=== PATIENT | female | born 1980 | race Caucasian/White ===

== ENCOUNTER 2016-09-13 08:26 | Emergency (ER) | payer BC ==
[2016-09-13] MEDS ORDERED: Metoclopramide IV* 5 MG/ML 2 ML VIAL IV ONE (09:07)
[2016-09-13] MEDS ORDERED: HYDROmorphone INJ* 1 MG/ML CARPUJECT SYRINGE IV ONE (09:07)
[2016-09-13] MEDS ORDERED: NS 0.9% 1000 ML* 2,000 ML IV ONE (09:07)
[2016-09-13] MEDS ORDERED: diPHENhydraMINE IV* 50 MG/ML 1 ml VIAL (BENADRYL) IV ONE (09:10)
--- NOTE | 2016-09-13 09:28 | RAD ---
HISTORY: Chest pain, pneumonia, CHF COMPARISONS: April 16, 2015 VIEWS:1: Single frontal portable view of the chest at 9:10 AM FINDINGS: LINES AND TUBES: None. CARDIOMEDIASTINAL SILHOUETTE: The cardiomediastinal silhouette is normal for portable technique. A prosthetic heart valve is noted. PLEURA: The costophrenic angles are sharp. No pleural abnormalities are noted. LUNG PARENCHYMA: The lungs are clear. ABDOMEN: The upper abdomen is clear. There is no subphrenic gas. BONES AND SOFT TISSUES: The patient is status post median sternotomy. IMPRESSION: NO ACTIVE CARDIOPULMONARY DISEASE.
--- NOTE | 2016-09-13 09:54 | RAD ---
INDICATION: Headache on Coumadin. COMPARISON: Comparison is made with a prior CT of the brain from December 31, 2015. TECHNIQUE: Contiguous axial sections of the brain were obtained from the skull base to the vertex without contrast. FINDINGS: The ventricles, cisterns and sulci are within normal limits. No significant focal abnormality or mass effect is seen. There is no evidence for hemorrhage. No significant focal osseous abnormality is seen. The visualized portion of the paranasal sinuses and mastoid air cells appear clear. IMPRESSION: NO EVIDENCE FOR ACUTE INTRACRANIAL ABNORMALITY.
[2016-09-13 09:59] LABS: Urine Bilirubin Negative (Negative); Urine Glucose Negative (Negative); Urine Nitrite Negative (Negative)
[2016-09-13 11:59] LABS: Hematocrit 41 % (35-47); Hemoglobin 13.2 g/dl (12.0-16.0); Mean Corpuscular HGB Conc 33 g/dl (31-36); Mean Corpuscular Hemoglobin 28 pg (27-31); Mean Corpuscular Volume 85 fL (80-97); Mean Platelet Volume 8 um3 (7.4-10.4); Red Blood Count 4.76 10^6/ul (4.0-5.4); Red Cell Distribution Width 14 % (10.5-15); White Blood Count 7.3 10^3/ul (3.5-10.8)
[2016-09-13 12:25] LABS: BUN/Creatinine Ratio 13.6 (8-20); Calcium 9.2 mg/dL (8.6-10.3); EGFR African American 130.3 (>60); EGFR Non-African American 101.3 (>60); Globulin 2.7 g/dL (2-4); Potassium 3.7 mmol/L (3.5-5.0); Total Bilirubin 0.4 mg/dL (0.2-1.0); Total Protein 6.7 g/dL (6.4-8.9)
[2016-09-13 12:59] VITALS: BP 149/77
--- NOTE | 2016-09-13 16:20 | ED ---
[place] Brown Adam, scribed for Marcel Calix MD on 09/13/16 at 1007 . Neurological HPI - HPI Summary HPI Summary: Pt is a 36 year old female with a Hx of migraines presenting with a worsening MCKEON over the past 3 days. She states that it started out mild 3 days ago but by 11:00 yesterday it was a full migraine. She has taken Imitrex (pill) x3 but the MCKEON is still there. She went to work today but felt "very out of it" and could barely stand. Her typical migraine is on the left side and always feels like "something is crawling around in there". This time is characteristic of her typical migraine on the left side but there is also numbness and tingling going down the left side of her body to her legs, which is new. She states that she began feeling CP at 06:30 this morning and soon afterwards developed numbness and tingling in her left arm which has since spread throughout the left side of her body. Pt also c/o SOB, palpitations, stiff neck, and intermittent black spots in her vision. She vomited 2 days ago. She had cold sweats last night. She states that she has also been having some left flank pain. She denies fever and chills. Pt has an artificial mechanical valve and is on Warfarin (INR was 2.3 this week). She stopped metoprolol about 1 month ago. Occasional EtOH use. FMHx of migraines. - History of Current Complaint Chief Complaint: EDHeadache Stated Complaint: CHEST PAIN Time Seen by Provider: 09/13/16 09:38 Hx Obtained From: Patient Hx Last Menstrual Period: December 2015 endometrial ablation Onset/Duration: Gradual Onset, Started days ago, Still Present, Worse Since - Yesterday Onset Severity: Mild Current Severity: Moderate Headache Location: Diffuse (Left) Pain Intensity: 6 Pain Scale Used: 0-10 Numeric Character: Typical Migraine, Other: - "Feels like something is crawling around in there" Aggravating: Position Change/Supine to Erect Alleviating: Nothing Associated Signs and Symptoms: Positive: Headache, Numbness, Nausea/Vomiting, Diaphoresis, Neck Pain/Stiffness, Chest Pain, Shortness of Breath - Additional Pertinent History Primary Care Physician: SANJIV - Allergy/Home Medications Allergies/Adverse Reactions: Allergies Allergy/AdvReac Type Severity Reaction Status Date / Time Bee Venom Allergy Severe Anaphylatic Verified 05/16/16 07:34 Shock Home Medications: Home Medications Cholecalciferol TAB* [Vitamin D TAB*] 2 tab PO DAILY 09/13/16 [History Confirmed 09/13/16] Famotidine TAB* [Pepcid 20 MG TAB*] 20 mg PO BID 09/13/16 [History Confirmed ] Warfarin TAB(*) [Coumadin TAB(*)] 7.5 - 10 mg PO QPM 09/13/16 [History Confirmed 09/13/16] PMH/Surg Hx/FS Hx/Imm Hx Endocrine/Hematology History: Reports: Hx Anemia - TAKES IRON Denies: Hx Diabetes, Hx Thyroid Disease Cardiovascular History: Reports: Hx Congenital Heart Disease, Hx Hypertension, Hx Valvular Heart Disease Denies: Hx Pacemaker/ICD Respiratory History: Reports: Hx Asthma - exercise induced when younger Denies: Hx Chronic Obstructive Pulmonary Disease (COPD), Hx Sleep Apnea GI History: Denies: Hx Gastroesophageal Reflux Disease, Hx Jaundice, Hx Ulcer History: Reports: Other Problems/Disorders Denies: Hx Renal Disease Musculoskeletal History: Reports: Hx Tendonitis - LEFT SHOULDER Sensory History: Reports: Hx Contacts or Glasses - GLASSES Denies: Hx Hearing Aid Opthamlomology History: Reports: Hx Contacts or Glasses - GLASSES Neurological History: Denies: Hx Headaches, Hx Migraine, Hx Nerve Disease, Hx Seizures Psychiatric History: Denies: Hx Anxiety, Hx Depression, Hx Panic Disorder - Surgical History Surgery Procedure, Year, and Place: t&a. 2002, 2007. tubal ligation , LAPROSCOPY 2004. Endometrial ablation 2016. 05/29/16 Mechanical heart valve replacement Hx Anesthesia Reactions: No Infectious Disease History: No Infectious Disease History: Denies: Hx Hepatitis, Hx Human Immunodeficiency Virus (HIV), Traveled Outside the [place] in Last 30 Days - Family History Known Family History: Positive: Hypertension, Other - Migraines Family History: FHx of cholecystitis - Social History Occupation: Employed Full-time Lives: Alone Alcohol Use: Occasionally Alcohol Amount: SPECIAL OCCASIONS ONLY Hx Substance Use: No Substance Use Type: Reports: None Substance Use Comment - Amount & Last Used: occasional/last used few months ago Hx Tobacco Use: Yes Smoking Status (MU): Former Smoker Review of Systems Positive: Skin Diaphoresis. Negative: Fever, Chills Positive: Other - Black spot in vision Positive: Palpitations, Chest Pain Positive: Shortness Of Breath Positive: Vomiting Positive: Other - Stiff neck Positive: Headache, Numbness All Other Systems Reviewed And Are Negative: Yes Physical Exam - Summary Physical Exam Summary: The patient is obese in no acute distress and in no acute pain. The skin is warm and dry and skin color reflects adequate perfusion. HEENT: The head is normocephalic and atraumatic. The pupils are equal and reactive. No photophobia. The conjunctivae are clear and without drainage. Nares are patent and without drainage. Mouth reveals dry oral mucosa. The external ears are intact. The ear canals are patent and without drainage. The tympanic membranes are intact. No tenderness to percussion of sinuses. No TMJ or temporal artery tenderness. Neck is supple with full range of motion and non-tender. There are no carotid bruits. There is no neck vein distension. No nuchal rigidity. Respiratory: Lungs are clear to auscultation and breath sounds are symmetrical and equal. Cardiovascular: Heart is regular rate and rhythm. There is no murmur or rub auscultated. There is no peripheral edema and pulses are symmetrical and equal. Abdomen: The abdomen is obese, soft, and nontender. Musculoskeletal: Reproducible chest wall tenderness. There is no back pain noted. Extremities are non-tender with full range of motion. There is good capillary refill. There is no peripheral edema or calf tenderness elicited. Scars healed well. Neurological: Patient is alert and oriented to person, place and time. The patient has symmetrical motor strength in all four extremities. Cranial nerves are grossly intact. Deep tendon reflexes are symmetrical and equal in all four extremities. Psychiatric: The patient has an appropriate affect and does not exhibit any anxiety or depression. Triage Information Reviewed: Yes Vital Signs On Initial Exam: Initial Vitals Temp Pulse Resp BP Pulse Ox 98.4 F 79 18 151/98 100 09/13/16 09:08 09/13/16 09:08 09/13/16 09:08 09/13/16 09:08 09/13/16 09:08 Vital Signs Reviewed: Yes - [place] Coma Scale Coma Scale Total: 15 Diagnostics - Vital Signs Vital Signs Temp Pulse Resp BP Pulse Ox 09/13/16 09:08 98.4 F 79 18 151/98 100 - Laboratory Lab Results: Lab Results 09/13/16 Range/Units 09:30 Urine Color Yellow Urine Appearance Clear Urine pH 8.0 (5-9) Ur Specific [place] 1.010 (1.010-1.030) Urine Protein Negative (Negative) Urine Ketones Trace H (Negative) Urine Blood Negative (Negative) Urine Nitrate Negative (Negative) Urine Bilirubin Negative (Negative) Urine Urobilinogen Negative (Negative) Ur Leukocyte Esterase Negative (Negative) Urine Glucose Negative (Negative) Result Diagrams: 09/13/16 11:35 09/13/16 11:35 Lab Statement: Any lab studies that have been ordered have been reviewed, and results considered in the medical decision making process. - Radiology CXR Radiology Interpretation Completed By: Radiologist - IMPRESSION: NO ACTIVE CARDIOPULMONARY DISEASE. - CT BRAIN CT Interpretation Completed By: Radiologist - IMPRESSION: NO EVIDENCE FOR ACUTE INTRACRANIAL ABNORMALITY. - EKG 08:57 Cardiac Rate: NL - 59 BPM EKG Rhythm: Sinus Rhythm - Normal EKG Interpretation: Normal axis Course/Dx - Differential Dx Differential Diagnoses Neuro: Positive: Coronary Artery Disease, Metabolic Abnormality, Other - intracerebral bleed, migraine headache, pneumonia, anxiety , anticoagulation therapy - Diagnoses Provider Diagnoses: Migraine, Chest pain Discharge - Discharge Plan Condition: Stable Disposition: HOME Prescriptions: HYDROmorphone TAB* [Dilaudid TAB*] 2 mg PO Q6H PRN #20 tab MDD 4 PRN Reason: pain Patient Education Materials: Migraine Headache (ED), Chest Pain (ED) Forms: *Work Release Referrals: Servando Rios DO [Doctor of Osteopathy] - Allyn Faulkner MD [Medical Doctor] - Additional Instructions: Follow up with Dr. Rios and Dr. Faulkner (cardiology) The documentation as recorded by the [place] villarreal Adam accurately reflects the service I personally performed and the decisions made by , Marcel Calix MD.
== END 2016-09-13 12:58 | disposition home or self-care (01) ==
LOC: ED 08:26
DX: G43.909 Migraine, unspecified, not intractable, without status migrainosus (principal); R07.9 Chest pain, unspecified
CPT/HCPCS: 36415; 70450; 71010; 80053; 81003; 83605; 83880; 84484; 85025; 85610; 85730; 93005; 96374; 96375; 99283; J1170; J1200; J2765

== ENCOUNTER 2017-01-23 04:06 | Emergency (ER) | payer BC ==
[2017-01-23] MEDS ORDERED: NS 0.9% 1000 ML* 1,000 ML IV ONE ×2 (04:40→08:21)
[2017-01-23] MEDS ORDERED: Morphine INJ* 2 MG/ML 1 ML SYRINGE IV ONE (04:40)
[2017-01-23] MEDS ORDERED: Ondansetron INJ* 2 MG/ML VIAL IV ONE (04:40)
[2017-01-23 05:16] LABS: Hematocrit 39 % (35-47); Hemoglobin 13.1 g/dl (12.0-16.0); Mean Corpuscular HGB Conc 33 g/dl (31-36); Mean Corpuscular Hemoglobin 29 pg (27-31); Mean Corpuscular Volume 86 fL (80-97); Mean Platelet Volume 9 um3 (7.4-10.4); Red Blood Count 4.56 10^6/ul (4.0-5.4); Red Cell Distribution Width 14 % (10.5-15); White Blood Count 8.8 10^3/ul (3.5-10.8)
[2017-01-23 05:26] LABS: ALT 12 U/L (7-52); AST 18 U/L (13-39); Albumin 4.4 g/dL (3.2-5.2); Alkaline Phosphatase 55 U/L (34-104); Anion Gap 4 mmol/L (2-11); BUN/Creatinine Ratio 17.7 (8-20); Blood Urea Nitrogen 14 mg/dL (6-24); CO2 Carbon Dioxide 26 mmol/L (22-32); Calcium 9.2 mg/dL (8.6-10.3); Chloride 106 mmol/L (101-111); EGFR African American 105.9 (>60); EGFR Non-African American 82.3 (>60); Globulin 2.7 g/dL (2-4); Glucose 92 mg/dL (70-100); Lipase 22 U/L (11.0-82.0); Potassium 3.8 mmol/L (3.5-5.0); Sodium 136 mmol/L (133-145); Total Protein 7.1 g/dL (6.4-8.9)
--- NOTE | 2017-01-23 06:00 | ED ---
Niki Brown Rebecca, scribed for Vamshi Tompkins MD on 01/23/17 at 0420 . Abdominal Pain/Female - HPI Summary HPI Summary: Pt is a 36 y/o F who presents to ED c/o abd pain. Pain began gradually at 1600 yesterday and has been constant since onset. Pain is in the RUQ and RLQ currently, though it began in the R vaginal region. Pain is characterized as pressure and is currently severe, ranked 10/10. Sx aggravated and alleviated by nothing. Additionally c/o N/V. Pt takes Warfarin s/p mechanical heart valve placement to treat aortic valve stenosis with a heart murmur 1.5 years ago. - History of Current Complaint Chief Complaint: EDAbdPain Stated Complaint: RIGHT FLANK PAIN Hx Obtained From: Patient Hx Last Menstrual Period: December 2015 endometrial ablation Onset/Duration: Gradual Onset, Still Present Timing: Constant Severity Currently: Severe Pain Intensity: 10 Pain Scale Used: 0-10 Numeric Location: Discrete At: RUQ, Discrete At: RLQ Radiates: No Character: Other: - Pressure Aggravating Factor(s): Nothing Alleviating Factor(s): Nothing Associated Signs and Symptoms: Positive: Nausea, Vomiting Allergies/Adverse Reactions: Allergies Allergy/AdvReac Type Severity Reaction Status Date / Time Bee Venom Allergy Severe Rash Verified 01/23/17 06:29 Home Medications: Home Medications HYDROmorphone TAB* [Dilaudid TAB*] 2 mg PO Q6H PRN MDD 4 01/23/17 [History Confirmed 01/23/17] Levothyroxine TAB* [Synthroid TAB*] 50 mcg PO DAILY 01/23/17 [History Confirmed 01/23/17] PMH/Surg Hx/FS Hx/Imm Hx Endocrine/Hematology History: Reports: Hx Anemia - TAKES IRON Denies: Hx Diabetes, Hx Thyroid Disease Cardiovascular History: Reports: Hx Congenital Heart Disease, Hx Hypertension, Hx Valvular Heart Disease Denies: Hx Pacemaker/ICD Respiratory History: Reports: Hx Asthma - exercise induced when younger Denies: Hx Chronic Obstructive Pulmonary Disease (COPD), Hx Sleep Apnea GI History: Denies: Hx Gastroesophageal Reflux Disease, Hx Jaundice, Hx Ulcer History: Reports: Other Problems/Disorders Denies: Hx Renal Disease Musculoskeletal History: Reports: Hx Tendonitis - LEFT SHOULDER Sensory History: Reports: Hx Contacts or Glasses - GLASSES Denies: Hx Hearing Aid Opthamlomology History: Reports: Hx Contacts or Glasses - GLASSES Neurological History: Denies: Hx Headaches, Hx Migraine, Hx Nerve Disease, Hx Seizures Psychiatric History: Denies: Hx Anxiety, Hx Depression, Hx Panic Disorder - Surgical History Surgery Procedure, Year, and Place: t&a. 2002, 2007. tubal ligation , LAPROSCOPY 2004. Endometrial ablation 2016. 05/29/16 Mechanical heart valve replacement Hx Anesthesia Reactions: No Infectious Disease History: Denies: Hx Hepatitis, Hx Human Immunodeficiency Virus (HIV), Traveled Outside the [place] in Last 30 Days - Family History Known Family History: Positive: Hypertension, Other - Migraines Family History: FHx of cholecystitis - Social History Alcohol Use: Occasionally Alcohol Amount: SPECIAL OCCASIONS ONLY Hx Substance Use: No Substance Use Type: Reports: None Substance Use Comment - Amount & Last Used: occasional/last used few months ago Hx Tobacco Use: Yes Smoking Status (MU): Former Smoker Review of Systems Negative: Fever Positive: Abdominal Pain - RLQ and RUQ, Vomiting, Nausea All Other Systems Reviewed And Are Negative: Yes Physical Exam Triage Information Reviewed: Yes Vital Signs On Initial Exam: Initial Vitals Temp Pulse Resp BP Pulse Ox 97.2 F 90 18 140/94 99 01/23/17 04:11 01/23/17 04:11 01/23/17 04:11 01/23/17 04:11 01/23/17 04:11 Vital Signs Reviewed: Yes Appearance: Positive: Well-Appearing, Pain Distress - mild discomfort Skin: Positive: Warm Head/Face: Positive: Normal Head/Face Inspection Eyes: Positive: [place] ENT: Positive: Hearing grossly normal Neck: Positive: Supple Respiratory/Lung Sounds: Positive: Breath Sounds Present Cardiovascular: Positive: RRR Abdomen Description: Positive: Soft, Other: - mild mid rt abd tenderness. Negative: Guarding Bowel Sounds: Positive: Present Musculoskeletal: Positive: Strength/ROM Intact Neurological: Positive: Alert, Oriented to Person Place, Time, Normal Gait Psychiatric: Positive: Affect/Mood Appropriate Diagnostics - Vital Signs Vital Signs Temp Pulse Resp BP Pulse Ox 01/23/17 04:11 97.2 F 90 18 140/94 99 - Laboratory Lab Results: Lab Results 01/23/17 01/23/17 01/23/17 Range/Units 04:26 04:26 04:26 WBC 8.8 (3.5-10.8) 10^3/ul RBC 4.56 (4.0-5.4) 10^6/ul Hgb 13.1 (12.0-16.0) g/dl Hct 39 (35-47) % MCV 86 (80-97) fL MCH 29 (27-31) pg MCHC 33 (31-36) g/dl RDW 14 (10.5-15) % Plt Count 283 (150-450) 10^3/ul MPV 9 (7.4-10.4) um3 Neut % (Auto) 53.8 (38-83) % Lymph % (Auto) 35.8 (25-47) % Thayer % (Auto) 7.8 (1-9) % Eos % (Auto) 2.3 (0-6) % Baso % (Auto) 0.3 (0-2) % Absolute Neuts (auto) 4.7 (1.5-7.7) 10^3/ul Absolute Lymphs (auto) 3.2 (1.0-4.8) 10^3/ul Absolute Monos (auto) 0.7 (0-0.8) 10^3/ul Absolute Eos (auto) 0.2 (0-0.6) 10^3/ul Absolute Basos (auto) 0 (0-0.2) 10^3/ul Absolute Nucleated RBC 0.01 10^3/ul Nucleated RBC % 0.1 INR (Anticoag Therapy) 3.46 H (0.89-1.11) Sodium 136 (133-145) mmol/L Potassium 3.8 (3.5-5.0) mmol/L Chloride 106 (101-111) mmol/L Carbon Dioxide 26 (22-32) mmol/L Anion Gap 4 (2-11) mmol/L BUN 14 (6-24) mg/dL Creatinine 0.79 (0.51-0.95) mg/dL Est GFR ( Amer) 105.9 (>60) Est GFR (Non-Af Amer) 82.3 (>60) BUN/Creatinine Ratio 17.7 (8-20) Glucose 92 (70-100) mg/dL Lactic Acid (0.5-2.0) mmol/L Calcium 9.2 (8.6-10.3) mg/dL Magnesium 2.0 (1.9-2.7) mg/dL Total Bilirubin 0.40 (0.2-1.0) mg/dL AST 18 (13-39) U/L ALT 12 (7-52) U/L Alkaline Phosphatase 55 (34-104) U/L C-Reactive Protein Pending Total Protein 7.1 (6.4-8.9) g/dL Albumin 4.4 (3.2-5.2) g/dL Globulin 2.7 (2-4) g/dL Albumin/Globulin Ratio 1.6 (1-3) Lipase 22 (11.0-82.0) U/L Beta HCG, Quant < 0.60 mIU/mL 01/23/17 Range/Units 04:26 WBC (3.5-10.8) 10^3/ul RBC (4.0-5.4) 10^6/ul Hgb (12.0-16.0) g/dl Hct (35-47) % MCV (80-97) fL MCH (27-31) pg MCHC (31-36) g/dl RDW (10.5-15) % Plt Count (150-450) 10^3/ul MPV (7.4-10.4) um3 Neut % (Auto) (38-83) % Lymph % (Auto) (25-47) % [place] % (Auto) (1-9) % Eos % (Auto) (0-6) % Baso % (Auto) (0-2) % Absolute Neuts (auto) (1.5-7.7) 10^3/ul Absolute Lymphs (auto) (1.0-4.8) 10^3/ul Absolute Monos (auto) (0-0.8) 10^3/ul Absolute Eos (auto) (0-0.6) 10^3/ul Absolute Basos (auto) (0-0.2) 10^3/ul Absolute Nucleated RBC 10^3/ul Nucleated RBC % INR (Anticoag Therapy) (0.89-1.11) Sodium (133-145) mmol/L Potassium (3.5-5.0) mmol/L Chloride (101-111) mmol/L Carbon Dioxide (22-32) mmol/L Anion Gap (2-11) mmol/L BUN (6-24) mg/dL Creatinine (0.51-0.95) mg/dL Est GFR ( Amer) (>60) Est GFR (Non-Af Amer) (>60) BUN/Creatinine Ratio (8-20) Glucose (70-100) mg/dL Lactic Acid 0.4 L (0.5-2.0) mmol/L Calcium (8.6-10.3) mg/dL Magnesium (1.9-2.7) mg/dL Total Bilirubin (0.2-1.0) mg/dL AST (13-39) U/L ALT (7-52) U/L Alkaline Phosphatase (34-104) U/L C-Reactive Protein Total Protein (6.4-8.9) g/dL Albumin (3.2-5.2) g/dL Globulin (2-4) g/dL Albumin/Globulin Ratio (1-3) Lipase (11.0-82.0) U/L Beta HCG, Quant mIU/mL Result Diagrams: 01/23/17 04:26 01/23/17 04:26 Lab Statement: Any lab studies that have been ordered have been reviewed, and results considered in the medical decision making process. Re-Evaluation - Re-Evaluation First Eval Re-Evaluation Time: 08:11 Comment: Reviewed labs and imaging results with pt. Second Eval Re-Evaluation Time: 10:22 Comment: Reviewed new imaging results. Third Eval Re-Evaluation Time: 14:04 Comment: Discussed plan with pt. Abdominal Pain Fem Course/Dx - Course Course Of Treatment: Pt is a 36 y/o F who presents to ED c/o gradual onset, severe RUQ and RLQ pain characterized as pressure since 1600 yesterday. Sx aggravated and alleviated by nothing. Additionally c/o N/V. Pt takes Warfarin s/ p mechanical heart valve placement to treat aortic valve stenosis with a heart murmur 1.5 years ago. Pt will be signed out to Dr. Neil, pending dispo, awaiting CT Abd/Pel. - Diagnoses Provider Diagnoses: Abdominal pain, Pelvic pain Discharge - Discharge Plan Condition: Improved Disposition: HOME Discharge Disposition Comment: Pt will be signed out, pending dispo, awaiting CT Abd/Pel results Prescriptions: oxyCODONE/Acetamin 5/325 MG* [Percocet 5/325 TAB*] 1 tab PO Q4H PRN #20 tab MDD 6 PRN Reason: Pain Patient Education Materials: Pelvic Pain in Women (ED), Abdominal Pain (ED) Referrals: [facility] [Provider Group] Sharath Landaverde MD [Medical Doctor] - Sumi Yan MD [Primary Care Provider] - Additional Instructions: FOLLOW UP WITH YOUR PRIMARY CARE DOCTOR AND OBGYN, DR LANDAVERDE. RETURN TO THE EMERGENCY DEPARTMENT FOR ANY WORSENING OF YOUR CONDITION; PAIN, FEVER, YOU FEEL ILL, YOU FEEL LIKE PASSING OUT OR QUESTIONS OR CONCERNS. The documentation as recorded by the Niki villarreal Rebecca accurately reflects the service I personally performed and the decisions made by me, Vamshi Tompkins MD.
[2017-01-23 06:15] LABS: Urine Bacteria 1+ (Absent); Urine Bilirubin Negative (Negative); Urine Glucose Negative (Negative); Urine Nitrite Negative (Negative)
[2017-01-23] MEDS ORDERED: Iohexol 300* (CONTRAST) 10 ML SDV IV ONE (06:31)
[2017-01-23 07:03] LABS: C Reactive Protein 8.08 mg/L (< 5.00)
--- NOTE | 2017-01-23 07:46 | RAD ---
INDICATION: Right lower quadrant pain. Fever. COMPARISON: None TECHNIQUE: Axial source images were obtained from the hemidiaphragms to the symphysis pubis following administration of oral and intravenous contrast. 100 mL Omnipaque 300 was utilized. Coronal and sagittal reconstructed images were acquired. Lung bases: The lung bases are clear. Liver: The liver is normal in size. There are no masses. There is no ductal dilatation. Gallbladder: There are no calcified gallstones. There is no evidence of wall thickening or pericholecystic fluid. Spleen: The spleen is normal in size. There are no masses. There are small splenules Pancreas: There is no focal pancreatic mass or ductal dilatation. Adrenal glands: There is no evidence of adrenal mass. Kidneys: The kidneys are normal in size and position. There are prompt nephrograms and there is prompt excretion bilaterally. There are no renal parenchymal masses. There is no evidence of nephrolithiasis. Adenopathy: There is no evidence of adenopathy by size criteria. Fluid collections: There are no free or localized fluid collections. Vessels:There are no significant atherosclerotic changes involving the aorta. There is no focal aneurysm. The iliac vessels are normal in caliber. The IVC appears normal. GI tract: There are no acute CT bowel findings. There is no obstruction. The stomach and small bowel appear normal. The lower GI tract is normal. The cecum, ileocecal valve, and terminal ileum appear normal. The appendix is visualized and appear normal. Pelvic organs: The uterus and left adnexa appear normal. There is a mass in the right adnexa measuring 4.7 x 4.1 cm which is likely the right ovary perhaps with some associated complex and/or hemorrhagic cyst. Suggest follow-up pelvic sonography. Bladder: There are no bladder masses. Abdominal and pelvic soft tissues: The extraperitoneal abdominal and pelvic soft tissues appear normal.. Osseous structures: There are no acute osseous findings. Other: None IMPRESSION: SUSPECT COMPLEX/HEMORRHAGIC RIGHT OVARIAN CYST. THIS SHOULD BE FURTHER CHARACTERIZED WITH ULTRASONOGRAPHY . NO OTHER MASS OR INFLAMMATORY CHANGE. NORMAL APPENDIX.
[2017-01-23] MEDS ORDERED: Morphine INJ* 4 MG/ML 1 ML SYRINGE IV ONE (08:22)
--- NOTE | 2017-01-23 09:58 | RAD ---
INDICATION: Pain and swelling left leg. COMPARISON: None TECHNIQUE: Duplex interrogation of the Lowerextremity was performed. FINDINGS: Deep veins: The common femoral, great saphenous, profunda femoris, proximal, mid, and distal deep femoral, popliteal, posterior tibial, and peroneal veins are patent. There is normal compressibility, augmentation, and phasic flow. Superficial veins: There are no findings of superficial thrombophlebitis. Popliteal fossa:There is no evidence of a popliteal cyst. Soft tissues:There are no soft tissue abnormalities. IMPRESSION: Normal examination. No evidence of deep venous thrombosis
--- NOTE | 2017-01-23 10:14 | RAD ---
INDICATION: Further characterization of a right adnexal structure seen on same-day CT. COMPARISON: CT abdomen pelvis dated January 23, 2017. Most recent pelvic ultrasound is dated August 17, 2010. TECHNIQUE: Real-time transabdominal and transvaginal ultrasound examination of the female pelvis including grayscale and Doppler color flow imaging. FINDINGS: Uterus: The uterus is normal in size and echogenicity measuring 7.2 x 3.7 x 4.8 cm. The endometrial stripe measures approximately 7 mm in thickness. The endometrial stripe is irregular consistent with the patient's history of endometrial ablation. Again noted are minimally prominent left para uterine veins measuring up to 4 mm in diameter that are not pathologically dilated according to size criteria. Ovaries: The right and left ovary measure 5.7 x 3.4 x 4.8 cm and 2.8 x 1.6 x 2.4 cm, respectively. Normal arterial and venous waveforms are identified. Within the right ovary there is an echogenic and mostly avascular structure measuring approximately 2.6 x 3.2 cm that appears to be separate from the remaining ovarian parenchyma. Scattered follicles are noted. There is no free fluid in the cul-de-sac. IMPRESSION: 1. Avascular an echogenic structure within the right ovary measuring up to 3.2 cm could be consistent with hemorrhagic involution of a follicle or endometrioma. If clinically warranted follow-up ultrasound can be acquired in 6 weeks to determine resolution. 2. Additional chronic findings described in the body the report similar to the August 17, 2010 ultrasound.
[2017-01-23] MEDS ORDERED: HYDROmorphone* 1 MG/ML 1 ML SYR IV ONE (11:21)
[2017-01-23] MEDS ORDERED: NS 0.9% 1000 ML* 1,000 ML IV SCH (11:30)
--- NOTE | 2017-01-23 14:13 | ED ---
Solo Brown Salem, scribed for Román Neil MD on 01/23/17 at 0813 . Progress - Progress Note Progress Note: Pt was signed out from Dr. Tompkins. 36 y/o F presents with right-sided abd pain since 1600 yesterday and reports N/ V. - Results/Orders Results/Orders: CT abd/pelvis: IMPRESSION: SUSPECT COMPLEX/HEMORRHAGIC RIGHT OVARIAN CYST. THIS SHOULD BE FURTHER CHARACTERIZED WITH ULTRASONOGRAPHY . NO OTHER MASS OR INFLAMMATORY CHANGE. NORMAL APPENDIX. Transvaginal US: IMPRESSION: 1. Avascular an echogenic structure within the right ovary measuring up to 3.2 cm could be consistent with hemorrhagic involution of a follicle or endometrioma. If clinically warranted follow-up ultrasound can be acquired in 6 weeks to determine resolution. 2. Additional chronic findings described in the body the report similar to the August 17, 2010 ultrasound. Venous Doppler Study: IMPRESSION: Normal examination. No evidence of deep venous thrombosis Re-Evaluation - Re-Evaluation First Eval Re-Evaluation Time: 08:11 Comment: Reviewed labs and imaging results with pt. Second Eval Re-Evaluation Time: 10:22 Comment: Reviewed new imaging results. Third Eval Re-Evaluation Time: 14:04 Comment: Discussed plan with pt. Course/Dx - Course Course Of Treatment: NO CRITICAL CARE TIME. DISCUSSED THE RESULTS WITH PATIENT AND [facility]ALEIGH ALEJO. PATIENT STILL HAS PAIN IN THE ED. DISCUSSED ADMISSION WITH PATIENT. SHE PREFERS TO GO HOME AND F/U OUT PATIENT. DISCHARGE HOME STABLE. - Diagnoses Provider Diagnoses: Abdominal pain, Pelvic pain - Provider Notifications Discussed Care Of Patient With: Sharath Landaverde Time Discussed With Above Provider: 12:22 - Discussed case. Instructed by Provider To: Other - Dr. Landaverde doesn't think there is an immediate pathology to admit for, but happy to follow up with pt as an out-pt. Discharge - Discharge Plan Condition: Stable Disposition: HOME Prescriptions: oxyCODONE/Acetamin 5/325 MG* [Percocet 5/325 TAB*] 1 tab PO Q4H PRN #20 tab MDD 6 PRN Reason: Pain Patient Education Materials: Abdominal Pain (ED), Pelvic Pain in Women (ED) Referrals: Sharath Landaverde MD [Medical Doctor] - Sumi Yan MD [Primary Care Provider] - [facility] [Provider Group] Additional Instructions: FOLLOW UP WITH YOUR PRIMARY CARE DOCTOR AND OBGYN, DR LANDAVERDE. RETURN TO THE EMERGENCY DEPARTMENT FOR ANY WORSENING OF YOUR CONDITION; PAIN, FEVER, YOU FEEL ILL, YOU FEEL LIKE PASSING OUT OR QUESTIONS OR CONCERNS. The documentation as recorded by the Solo villarreal Salem accurately reflects the service I personally performed and the decisions made by me, Román Neil MD.
[2017-01-23 14:27] VITALS: BP 144/69
== END 2017-01-23 14:28 | disposition home or self-care (01) ==
LOC: ED 04:06
DX: R10.9 Unspecified abdominal pain (principal); R10.2 Pelvic and perineal pain; R11.2 Nausea with vomiting, unspecified; Z87.891 Personal history of nicotine dependence
CPT/HCPCS: 36415; 74177; 76830; 80053; 81003; 81015; 83605; 83690; 83735; 84702; 85025; 85610; 86140; 87086; 99283; J1170; J2270; J2405; Q9967

== ENCOUNTER 2017-03-07 15:27 | Observation (INO) | payer BC ==
[2017-03-07] MEDS ORDERED: Ondansetron INJ* 2 MG/ML VIAL IV ONE ×2 (15:35→18:53)
[2017-03-07] MEDS ORDERED: Morphine INJ* 4 MG/ML 1 ML SYRINGE IV ONE (15:35)
[2017-03-07] MEDS ORDERED: HYDROmorphone* 2 MG/ML 1 ML SYR IV SLOW PU ONE ×2 (15:44→16:30)
[2017-03-07 16:09] LABS: Hematocrit 43 % (35-47); Hemoglobin 14.1 g/dl (12.0-16.0); Mean Corpuscular HGB Conc 33 g/dl (31-36); Mean Corpuscular Hemoglobin 29 pg (27-31); Mean Corpuscular Volume 86 fL (80-97); Mean Platelet Volume 9 um3 (7.4-10.4); Red Blood Count 4.97 10^6/ul (4.0-5.4); Red Cell Distribution Width 13 % (10.5-15); White Blood Count 13.1 10^3/ul (3.5-10.8)
[2017-03-07 16:35] LABS: ALT 11 U/L (7-52); AST 16 U/L (13-39); Albumin 4.5 g/dL (3.2-5.2); Alkaline Phosphatase 55 U/L (34-104); Anion Gap 7 mmol/L (2-11); BUN/Creatinine Ratio 20.9 (8-20); Blood Urea Nitrogen 14 mg/dL (6-24); CO2 Carbon Dioxide 22 mmol/L (22-32); Chloride 106 mmol/L (101-111); EGFR African American 128.1 (>60); EGFR Non-African American 99.6 (>60); Glucose 99 mg/dL (70-100); Potassium 3.8 mmol/L (3.5-5.0); Sodium 135 mmol/L (133-145)
[2017-03-07] MEDS ORDERED: Iohexol 300* (CONTRAST) 10 ML SDV IV ONE (17:15)
[2017-03-07 17:40] LABS: Calcium 9.4 mg/dL (8.6-10.3); Total Protein 7.5 g/dL (6.4-8.9)
[2017-03-07] MEDS ORDERED: Ketorolac INJ* 30 MG/ML 1 ML VIAL IV PUSH ONE (18:53)
--- NOTE | 2017-03-07 19:18 | RAD ---
CLINICAL HISTORY: Peritoneal signs with history of right ovarian cyst. COMPARISON: Most recent comparison CT examination is dated January 23, 2017. Most recent pelvic ultrasound is dated January 23, 2017 as well. TECHNIQUE: Contrast enhanced CT examination of the abdomen and pelvis from the lung bases through the initial tuberosities. The patient received 100 mL Omnipaque 300 intravenously prior to imaging.The patient received oral contrast as well prior to imaging. FINDINGS: VISUALIZED LUNG BASES: The visualized lung bases are grossly clear. There is no pleural effusion. ABDOMEN AND PELVIS: There is a small amount of perihepatic and perisplenic fluid. More inferiorly there is trace ascites in the abdomen with a moderate ascites collection in the pelvis. The liver, spleen, pancreas and adrenal glands are grossly normal in appearance. The gallbladder is normal. The kidneys are normal in appearance without focal mass, calcification or signs of hydronephrosis. The small and large bowel are not distended. The patient's normal appendix is identified in the right lower quadrant with gas in the lumen (image 45 of 118). There is no gross retroperitoneal or mesenteric lymphadenopathy. There is a moderate amount of fluid in the pelvis with a Hounsfield unit greater than that of simple fluid ascites. There is evidence of venous reflux at the mildly enlarged left ovarian vein which measures up to 9 mm in greatest axial dimension. This contrast is seen refluxing into mildly dilated left periuterine veins contiguous with the area of fluid collection. On the previous CT examination there was a 4.1 x 4.7 cm soft tissue density structure that is not well-visualized today. There is a more well-circumscribed fluid density structure measuring 2.3 cm in the right hemipelvis. The abdominal aorta and iliac arteries are normal in course and diameter. Degenerative changes include multilevel loss of intervertebral disc height involving the lower thoracic and lumbar spine.There are no sinister bone lesions. IMPRESSION: Acute findings include moderate pelvic ascites with trace ascites in the abdomen and surrounding the liver and spleen. In the pelvis the Hounsfield unit density of this ascites is greater than that of simple fluid. There is evidence of venous reflux of the left ovarian vein communicating with mild to moderately dilated periuterine veins. Relative to the CT examination acquired January 23, 2017 the 4.7 cm soft tissue density structure seen before is not well seen today. Potentially this constellation of findings could be due to rupture of a hemorrhagic cyst which would account for the density attenuation of the fluid. Potentially there is leakage of contrast from the periuterine varicose veins and refluxing left ovarian vein which may be causing the otherwise simple ascites to be hyperdense. I favor rupture of a hemorrhagic cyst and the identification of the appearance of pelvic congestion syndrome is a secondary incidental finding. As discussed with Dr. Moreno, pelvic ultrasound may help elucidate these findings.
--- NOTE | 2017-03-07 20:37 | RAD ---
INDICATION: Abdominal pain. COMPARISON: Same day CT examination that shows hyperattenuating ascites in the pelvis. Most recent comparison pelvic ultrasound dated January 23, 2017. TECHNIQUE: Real-time transabdominal only ultrasound examination of the female pelvis including grayscale and Doppler color flow imaging. FINDINGS: Uterus: The uterus is normal in size and echogenicity measuring 9.9 x 4.3 x 4.1 cm. The endometrial stripe is smooth and uniform measuring 7 mm in thickness. Corresponding to the prior CT examination there is minimally echogenic free pelvic fluid. Ovaries: The right and left ovary measure 5.8 x 4.3 x 4.8 cm and 6.5 x 5.0 x 5.4 cm, respectively. Within the right ovary there is an anechoic and avascular structure measuring 4 x 3.2 x 3.5 cm which would be most consistent with a follicle in a woman of this age. The large echogenic mass at the right ovary measuring up to 4.2 cm in greatest dimension is not seen on this ultrasound exam. Normal arterial and venous waveforms are identified at the right ovary. Limited vascular flow is recorded at the left ovary. IMPRESSION: 1. Corresponding to findings on the same day CT examination, there is a moderate amount of slightly echogenic fluid in the pelvic peritoneum. 2. The 4.2 cm echogenic mass seen within the right ovary on the previous ultrasound is not seen on this ultrasound. Potentially the patient's findings are a consequence of rupture of a hemorrhagic cyst or a ruptured endometrioma which would account for the hyperdense fluid measured on the same day CT examination. 3. Attenuated vascular flow is recorded at the mildly enlarged left ovary. Potentially this could be due to ovarian torsion or simply be a consequence of limited vascular evaluation in a transabdominal only pelvic ultrasound. Findings were discussed over the telephone with Dr. Tompkins at 2033 hours on March 07, 2017.
[2017-03-07] MEDS ORDERED: Sodium Citrate/Citric Acid* 15 ML UDC ONE (22:59)
[2017-03-07] MEDS ORDERED: Dexamethasone IV* 4 MG/ML 1 ML (4 MG) ONE (22:59)
[2017-03-07] MEDS ORDERED: Bupivacaine 0.25% SDV* 30 ML ONE (23:13)
[2017-03-07] MEDS ORDERED: Lidocaine 2% PF * 5 ML VIAL ONE (23:32)
[2017-03-07] MEDS ORDERED: Propofol* 10 MG/ML 20 ML BTL IV PUSH ONE (23:32)
[2017-03-07] MEDS ORDERED: Succinylcholine* 20 MG/ML 10 ML VIAL ONE (23:32)
[2017-03-07] MEDS ORDERED: fentaNYL* 50 MCG/ML 5 ML VIAL (250 MCG VIAL) ONE (23:33)
[2017-03-07] MEDS ORDERED: Cisatracurium* 2 MG/ML MDV 5 ML ONE ×2 (23:56→23:57)
[2017-03-08] MEDS ORDERED: KETAMINE HCL* 50 MG/ML 10 ML VIAL ONE
[2017-03-08] MEDS ORDERED: Ondansetron INJ* 2 MG/ML VIAL ONE (00:26)
[2017-03-08] MEDS ORDERED: fentaNYL* 50 MCG/ML 2 ML VIAL (100 MCG VIAL) ONE (00:37)
[2017-03-08] MEDS ORDERED: Neostigmine Methylsulfate* 2 MG/2 ML SYRINGE ONE (01:01)
[2017-03-08] MEDS ORDERED: Glycopyrrolate IV* 0.2 MG/ML 1 ML VIAL ONE ×2 (01:01→01:07)
[2017-03-08] MEDS ORDERED: oxyCODONE/Acetamin 5/325 MG* TAB PO PRN ×2 (01:32→01:33)
[2017-03-08] MEDS ORDERED: Ondansetron INJ* 2 MG/ML VIAL IV PRN (01:33)
[2017-03-08 08:21] VITALS: BP 110/52
--- NOTE | 2017-03-08 15:57 | DS ---
DISCHARGE SUMMARY: DATE OF ADMISSION/OPERATION: 03/08/17 DATE OF DISCHARGE: 03/08/17 SURGEON: Jluis Dobbs MD HOSPITAL COURSE: This patient was a 36-year-old 3, para 2, who presented to the emergency department the day before surgery with complaint of about 3 days of worsening pain. The pain was fairly acute initially and then seemed to plateau, but then earlier today, was persistently getting worse again. The pain was throughout her entire abdomen, especially in the lower pelvis and by the end, she was unable to walk or move. Of note, the patient had a laparoscopic right salpingo- oophorectomy scheduled for next week for persistent right-sided pains and right ovarian cyst. In the emergency department, the patient was stable, but appeared extremely uncomfortable. Pain was not well managed with IV pain medications. Ultrasound was significant for a right ovarian cyst about 4 cm in size and a moderate amount of pelvic and abdominal fluid consistent with likely blood. Attenuated blood flow in the left ovary was considered to likely be related to poor abdominal ultrasound quality. Considering the findings, the patient was extensively counseled and consented for an operative laparoscopy with right salpingo-oophorectomy and likely evacuation of hemoperitoneum. Intraoperative findings were significant for a fairly large amount of blood inside the pelvis, at least 500 cc. This also extended up to the mid abdomen and liver. All visible blood was irrigated and removed. The only source of bleeding appeared to be the right ovarian cyst that had ruptured and now had no active bleeding. The patient had an aortic valve replacement, so she has been on anticoagulation. She likely had so much bleeding because of the anticoagulation. The right ovary and fallopian tube were removed as planned. On the morning of surgery, the patient was already feeling much better. She was ambulating, tolerating a regular diet, and voiding spontaneously. She was not even needing any pain medications for her pain. She was discharged to home in good condition on postoperative day 0. DISCHARGE PHYSICAL EXAMINATION: Vital Signs: Temperature 98.6, pulse 72, respiratory rate 16, blood pressure 110/52. General: The patient in no acute distress, appears comfortable in bed. Speaking clearly and no longer in distress. Abdomen: Soft, mild tenderness to palpation primarily around the incisions. Incisions appear clean, dry, and intact with skin adhesive in place. LABORATORY DATA: Preoperative hematocrit was 43. INR was 2.19. DISCHARGE INSTRUCTIONS: The patient's postoperative instructions were provided verbally and in printed form. 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 DISCHARGE MEDICATIONS: Please see the medication reconciliation form for this. DISCHARGE DIAGNOSIS: Acute abdominal pain, right ruptured ovarian cyst and hemoperitoneum. [id number]/[facility] #: [id number] MTDD
--- NOTE | 2017-03-13 06:15 | OP ---
DATE OF OPERATION: 03/07/17 - ROOM #349 DATE OF : 80 SURGEON: Jluis Dobbs MD FORM SETTER STEEL PAN FORMS: Priyank Dobson MD ANESTHESIOLOGIST: Dr. Bledsoe. ANESTHESIA: General endotracheal. PRE-OP DIAGNOSIS: Acute abdominal pain with apparent ruptured right ovarian cyst and hemoperitoneum. POST-OP DIAGNOSIS: Acute abdominal pain with ruptured right ovarian cyst and hemoperitoneum. OPERATIVE PROCEDURE: Laparoscopic right salpingo-oophorectomy and evacuation of the peritoneum. ESTIMATED BLOOD LOSS: 500 cc. URINE OUTPUT: 100 cc. IV FLUIDS: 2400 cc lactated Ringer's. INDICATIONS: This patient is a 36-year-old 3, para 2-0-1-2 who has been seen in my office several times in the past. Most recently, the patient had complained of some persistent right lower quadrant pain and had a known approximately 4 to 4.5 cm right ovarian cyst. Due to the persistence of her right lower quadrant pain, she desired to have a right salpingo-oophorectomy performed. She was scheduled for this to be performed on 03/12/17. A few days prior to presentation in the ER today, she had called reporting an increase in the pain, which was felt to be possibly from rupture of the cyst. It improved slightly initially, but then became progressively worse again today, 03/07/17. Considering this, she went to the emergency department where CT and ultrasound were performed and notable for apparent blood within the abdomen and pelvis. The patient's pain could not be controlled with pain medications and she was extremely uncomfortable. Considering this, she desired to proceed with laparoscopic right salpingo- oophorectomy right away and we discussed evacuating the hemoperitoneum. Of note, the patient has a history significant for an aortic valve replacement so she has been on full anticoagulation on warfarin. With the upcoming surgery, the patient had discontinued her warfarin two days earlier and was now on therapeutic levels of Lovenox. Her last Lovenox was about 12 hours prior to the surgery. INR this evening was 2.1. FINDINGS: Abdomen and pelvis with moderate amount of blood at least 500 cc. Left ovary and fallopian tube appeared normal. The uterus appeared normal. Right ovary appeared to have a modest hemorrhagic cyst with only a small area that appeared to have been the rupture site. There was no active bleeding present. There were several sites of adhesions in the pelvis and some findings that were significant for possible endometriosis implants. COMPLICATIONS: None. DESCRIPTION OF PROCEDURE: The risks, benefits, and alternatives were described to the patient and informed consent was obtained. The patient was taken to the operating room with IV running where general anesthesia was induced and found to be adequate. The patient was prepped and draped in the normal sterile fashion in the high lithotomy position in [facility]. A time-out was performed. A Sorto catheter was placed. A bivalved speculum was placed in the vagina and attempt was made to place a Hulka tenaculum, but due to the patient' s prior endometrial ablation, this was not feasible. A sponge stick was then placed in the vagina to assist with manipulation of the uterus. The speculum was then removed and the patient's legs were lowered to a low lithotomy position. Gloves were changed and attention was then turned to the abdomen. 0.25% Marcaine was then injected into the patient's umbilicus. An approximately 2 cm vertical incision was then made with a scalpel. A 12-mm blunt trocar was then placed through the incision and into the peritoneal cavity without difficulty. The skin was elevated using penetrating towel clamps. The abdomen was then insufflated with carbon dioxide gas to a maximum pressure of 15 mmHg. A 5 mm laparoscope was placed into the abdomen and then there was a substantial amount of blood and blood clot visible in the abdomen and pelvis. 0.25% Marcaine was then injected into the left and right lower quadrants and 5 mm incisions were made with the scalpel. Bladeless trocars were placed into both the incisions through to the peritoneal cavity without difficulty. 5 and 10mm suction irrigators were used for a long time in order to remove as much blood and clot as possible. Some of the clot was extremely organized and dense. Once most of the visible blood had been removed, the patient was placed in the Trendelenburg position. The remainder of the pelvis was then irrigated as the bowel was swept out of the pelvis. Again, all the visible blood was removed as much as possible. The pelvis was inspected with the findings noted above. A LigaSure device was then prepared and used to clamp , coagulate and then transect the infundibulopelvic ligament on the right side. The right fallopian tube was then amputated from the cornua using the LigaSure as well. The posterior broad ligament was taken down also with the LigaSure and the uteroovarian ligament was clamped, coagulated and transected. Once the tube and ovary had been from the uterus and pelvic wall, a 12 mm Endo Catch bag was inserted into the umbilical port and the tube and ovary were placed inside of the bag. This was then brought up to the skin and after rupturing the cyst within the bag and draining it, the ovary and tube were removed through the umbilical incision in the bag. The pelvis was reinspected and additional irrigation and suctioning were performed. The area above the liver was noted to also have a modest amount of blood so this was also removed and irrigated. There did not appear to be any active bleeding present at that time. The patient was then returned to the flat position and the gas was allowed to escape. All three trocars were then removed. The fascia at the umbilical side was then grasped and reapproximated using 0 Polysorb in a [id number] stitch. The skin of all three incisions was reapproximated using 4-0 Monocryl in a subcuticular stitch and then Dermaflex skin adhesive was placed over them. The sponge stick was then removed from the vagina and the patient was returned to the supine position. The patient tolerated the procedure well. The sponge, lap, and needle counts were correct x2. [id number]/[facility] #: [id number] MTDD
== END 2017-03-08 11:35 | disposition home or self-care (01) ==
LOC: ED 15:27 → OR 22:17 → SSU 03-08 02:42
PROVIDERS: ADMIT Obstetrics & Gynecology; ATTEND Obstetrics & Gynecology
PROC: 0UT04ZZ Resection of Right Ovary, Percutaneous Endoscopic Approach (ICD-10-PCS; principal; 2017-03-08)
PROC: 0UT54ZZ Resection of Right Fallopian Tube, Percutaneous Endoscopic Approach (ICD-10-PCS; 2017-03-08)
DX: R10.9 Unspecified abdominal pain (principal); N83.201 Unspecified ovarian cyst, right side; K66.1 Hemoperitoneum; Z95.2 Presence of prosthetic heart valve; Z79.01 Long term (current) use of anticoagulants
CPT/HCPCS: 36415; 74177; 76856; 80053; 84702; 85027; 85610; 88305; 96374; 96375; 96376; 99284; A9270-GY; G0378; J0330; J1100; J1170; J1885; J2405; J2704; J3010; Q9967

== ENCOUNTER 2017-07-07 10:52 | Emergency (ER) | payer BC, OTHER ==
[2017-07-07 11:56] VITALS: BP 146/78
--- NOTE | 2017-07-07 12:46 | UC ---
Mango Brown Gabriel, scribed for Shabbir Anaya MD on 07/07/17 at 1236 . Abdominal Pain Female HPI - HPI Summary HPI Summary: This patient is a 37 year old F presenting to [facility] with a chief complaint of ABD pain since 5 days ago. The patient rates the pain 8/10 in severity and located suprapubic region. Symptoms aggravated by bending at waist. Patient reports dysuria, ABD distension, and vomiting. Pt had two recent surgeries in her abdomen and is taking Coumadin for heart issues. Her stomach keeps becoming more distended and she is concerned about abdominal bleeding. - History of Current Complaint Chief Complaint: UCAbdominalPain Stated Complaint: STOMACH PAIN Time Seen by Provider: 07/07/17 12:24 Hx Obtained From: Patient Hx Last Menstrual Period: December 2015 endometrial ablation Onset/Duration: Lasting Days - 5, Still Present Timing: Constant Severity Initially: Mild Severity Currently: Severe Pain Intensity: 8 Pain Scale Used: 0-10 Numeric Location: Suprapubic Radiates: No Aggravating Factor(s): Other: - bending at waist Associated Signs and Symptoms: Positive: Other: - dysuria, ABD distension, and vomiting Allergies/Adverse Reactions: Allergies Allergy/AdvReac Type Severity Reaction Status Date / Time Bee Venom Allergy Severe Rash Verified 07/07/17 11:57 Home Medications: Home Medications Gabapentin CAP(*) [Neurontin 100 mg CAP(*)] 100 mg PO TID PRN 07/07/17 [History Confirmed 07/07/17] PMH/Surg Hx/FS Hx/Imm Hx Previously Healthy: No Cardiovascular History: Other - aortic valve replacment Other Cardiovascular History: aortic valve replacement GI/ History: Other - PCOS Other GI/ History: ovarian cyst Neurological History: Migraine - Surgical History Surgical History: Yes Surgery Procedure, Year, and Place: t&a. 2002, 2007. tubal ligation , LAPROSCOPY 2004. Endometrial ablation 2016. 05/29/16 Mechanical heart valve replacement - Family History Known Family History: Positive: Hypertension, Other - Migraines Family History: FHx of cholecystitis - Social History Occupation: Employed Full-time Lives: With Family Alcohol Use: Rare Alcohol Amount: SPECIAL OCCASIONS ONLY Substance Use Type: None Substance Use Comment - Amount & Last Used: occasional/last used few months ago Smoking Status (MU): Former Smoker When Did the Patient Quit Smoking/Using Tobacco: 14 years ago - Immunization History Most Recent Influenza Vaccination: no Review of Systems Gastrointestinal: Abdominal Pain, Vomiting, Other - ABD distension Genitourinary: Dysuria All Other Systems Reviewed And Are Negative: Yes Physical Exam Triage Information Reviewed: Yes Appearance: Well-Appearing, No Pain Distress Vital Signs: Initial Vital Signs Temp 99.1 F 07/07/17 11:49 Pulse 73 07/07/17 11:49 Resp 18 07/07/17 11:49 BP 146/78 07/07/17 11:49 Pulse Ox 100 07/07/17 11:49 Vital Signs Reviewed: Yes Eyes: Positive: Conjunctiva Clear ENT: Positive: Normal ENT inspection Neck: Positive: Supple Respiratory: Positive: Lungs clear, Normal breath sounds Cardiovascular: Positive: RRR, No Murmur Abdomen Description: Positive: Distended - lower abdomen, with diffuse tenderness lower abdomen both sides. Negative: Peritoneal Signs Musculoskeletal: Positive: Strength Intact, No Edema Neurological: Positive: Alert, Muscle Tone Normal Psychological: Positive: Normal Response To Family Skin Exam: Normal Abd Pain Female Course/Dx - Course Course Of Treatment: 37 yrold female with the complaint of lower abdominal pain , and distention. DW Dr Philip Castaneda in ED at [facility] and aware of transfer to there. - Differential Dx/Diagnosis Provider Diagnoses: bilateral lower abdominal pain with distention. hypertension Discharge - Discharge Plan Condition: Good Disposition: TRANS HIGHER LVL OF CARE FAC Referrals: Sumi Yan MD [Primary Care Provider] - The documentation as recorded by the Mango villarreal Gabriel accurately reflects the service I personally performed and the decisions made by me, Shabbir Anaya MD.
== END 2017-07-07 12:57 | disposition short-term general hospital (02) ==
LOC: UCEAST 10:52
DX: R10.30 Lower abdominal pain, unspecified (principal); R14.0 Abdominal distension (gaseous); I10 Essential (primary) hypertension; Z95.2 Presence of prosthetic heart valve; F17.210 Nicotine dependence, cigarettes, uncomplicated
CPT/HCPCS: 99213; G0463

== ENCOUNTER 2017-07-07 13:06 | Emergency (ER) | payer BC ==
[2017-07-07] MEDS ORDERED: NS 0.9% 1000 ML* 2,000 ML IV ONE (13:22)
[2017-07-07 13:49] LABS: Hematocrit 39 % (35-47); Hemoglobin 12.5 g/dl (12.0-16.0); Mean Corpuscular HGB Conc 32 g/dl (31-36); Mean Corpuscular Hemoglobin 26 pg (27-31); Mean Corpuscular Volume 79 fL (80-97); Mean Platelet Volume 9 um3 (7.4-10.4); Red Blood Count 4.88 10^6/ul (4.0-5.4); Red Cell Distribution Width 18 % (10.5-15); White Blood Count 12.5 10^3/ul (3.5-10.8)
[2017-07-07 14:17] LABS: ALT 11 U/L (7-52); Albumin 4.6 g/dL (3.2-5.2); Alkaline Phosphatase 50 U/L (34-104); BUN/Creatinine Ratio 18.2 (8-20); Blood Urea Nitrogen 12 mg/dL (6-24); C Reactive Protein 3.41 mg/L (< 5.00); CO2 Carbon Dioxide 25 mmol/L (22-32); Calcium 9.3 mg/dL (8.6-10.3); Chloride 104 mmol/L (101-111); EGFR African American 129.6 (>60); EGFR Non-African American 100.8 (>60); Globulin 2.6 g/dL (2-4); Glucose 67 mg/dL (70-100); Lipase 30 U/L (11.0-82.0); Sodium 137 mmol/L (133-145); Total Protein 7.2 g/dL (6.4-8.9)
[2017-07-07 14:45] LABS: Urine Bacteria 1+ (Absent); Urine Bilirubin Negative (Negative); Urine Glucose Negative (Negative); Urine Nitrite Negative (Negative)
[2017-07-07 14:47] LABS: Anion Gap 8 mmol/L (2-11)
[2017-07-07] MEDS ORDERED: Morphine INJ* 4 MG/ML 1 ML CARPUJECT IV ONE (15:54)
[2017-07-07] MEDS ORDERED: Ondansetron INJ* 2 MG/ML VIAL IV ONE (15:54)
[2017-07-07] MEDS ORDERED: D5NS 0.9% 1000 ML BAG* 1,000 ML IV SCH (16:00)
[2017-07-07] MEDS ORDERED: diPHENhydraMINE IV* 50 MG/ML 1 ml VIAL (BENADRYL) ONE (16:19)
[2017-07-07] MEDS ORDERED: NS 0.9% 1000 ML* 1,000 ML IV ONE (16:31)
--- NOTE | 2017-07-07 17:22 | RAD ---
HISTORY: Left lower quadrant pain, status post right oophorectomy COMPARISONS: March 07, 2017 TECHNIQUE: Multiple transverse and longitudinal ultrasound images were obtained of the pelvis using grayscale, color Doppler, and spectral Doppler imaging using the endovaginal transducer. FINDINGS: UTERUS: The uterus measures 8.6 x 4.3 x 5.4 cm. The uterus is normal in shape, size, contour, and echotexture. ENDOMETRIUM: The endometrial stripe is smooth. The endometrium measures 0.6 cm in thickness. There are 2 areas of cystic change of the endometrium measuring up to 0.9 cm towards the fundus CUL-DE-SAC: There is no free fluid within the cul-de-sac. RIGHT OVARY: The patient is status post right oophorectomy. LEFT OVARY: The left ovary measures 4.3 x 3.4 x 3.9 cm. There is heterogeneous and hypoechoic cyst of the left ovary measuring 3.4 x 2.5 x 2.7 cmNormal arterial and venous waveforms are identifiable within the ovary on spectral Doppler imaging. BLADDER: The bladder is not well visualized. OTHER: None IMPRESSION: 1. CYSTIC CHANGE OF THE ENDOMETRIUM. 2. STATUS POST RIGHT OOPHORECTOMY. 3. COMPLICATED, LIKELY HEMORRHAGIC CYST OF THE LEFT OVARY MEASURING UP TO 3.4 CM. RECOMMEND FOLLOW-UP IMAGING IN 6 WEEKS-12 WEEKS TO DOCUMENT RESOLUTION. 4. NO SONOGRAPHIC FEATURES OF TORSION. PLEASE NOTE THAT PARTIAL OR INTERMITTENT TORSION MAY BE SONOGRAPHICALLY NORMAL.
--- NOTE | 2017-07-07 18:03 | ED ---
Abdominal Pain/Female - HPI Summary HPI Summary: LLQ pain 1 week ago - worsening and radiating to RLQ and Lt flank. 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 Denies vaginal d/c. H/o dyspareunia - no post coital bleeding. Feels pressure in pelvis and into labia. Denies N/V/D, fever, chills, chest pain, SOB, back pain, MCKEON, LE pain/numbness, tingling, weakness and no change in bowel/bladder habits. - History of Current Complaint Chief Complaint: EDAbdPain Stated Complaint: ABD PAIN Time Seen by Provider: 07/07/17 15:36 Hx Obtained From: Patient Hx Last Menstrual Period: December 2015 endometrial ablation Pain Intensity: 10 Allergies/Adverse Reactions: Allergies Allergy/AdvReac Type Severity Reaction Status Date / Time Bee Venom Allergy Severe Rash Verified 07/07/17 11:57 Dextrose Allergy Pain Verified 07/07/17 19:15 Morphine Allergy Hives Verified 07/07/17 19:14 PMH/Surg Hx/FS Hx/Imm Hx Previously Healthy: Yes Endocrine/Hematology History: Reports: Hx Anticoagulant Therapy - coumadin, Hx Anemia - TAKES IRON Denies: Hx Diabetes, Hx Thyroid Disease Cardiovascular History: Reports: Hx Congenital Heart Disease, Hx Hypertension, Hx Valvular Heart Disease - mechanical heart valve Denies: Hx Pacemaker/ICD Respiratory History: Reports: Hx Asthma - exercise induced when younger Denies: Hx Chronic Obstructive Pulmonary Disease (COPD), Hx Sleep Apnea GI History: Denies: Hx Gastroesophageal Reflux Disease, Hx Jaundice, Hx Ulcer History: Reports: Other Problems/Disorders - Rt oophorectomy d/t ruptured hemorrhagic cyst Denies: Hx Dialysis, Hx Renal Disease Musculoskeletal History: Reports: Hx Tendonitis - LEFT SHOULDER Sensory History: Reports: Hx Contacts or Glasses - GLASSES Denies: Hx Hearing Aid Opthamlomology History: Reports: Hx Contacts or Glasses - GLASSES Neurological History: Denies: Hx Headaches, Hx Migraine, Hx Nerve Disease, Hx Seizures Psychiatric History: Denies: Hx Anxiety, Hx Depression, Hx Panic Disorder - Surgical History Surgery Procedure, Year, and Place: t&a. 2002, 2007. tubal ligation , LAPROSCOPY 2004. Endometrial ablation 2015. 05/29/16 Mechanical heart valve replacement Hx Anesthesia Reactions: No - Immunization History Immunizations Up to Date: Yes Infectious Disease History: No Infectious Disease History: Denies: Hx Hepatitis, Hx Human Immunodeficiency Virus (HIV), Traveled Outside the [place] in Last 30 Days - Family History Known Family History: Positive: Hypertension, Other - Migraines Family History: FHx of cholecystitis - Social History Occupation: Employed Full-time Lives: With Family Alcohol Use: Rare Alcohol Amount: SPECIAL OCCASIONS ONLY Hx Substance Use: No Substance Use Type: Reports: None Substance Use Comment - Amount & Last Used: occasional/last used few months ago Hx Tobacco Use: Yes - not currently Smoking Status (MU): Former Smoker Review of Systems Constitutional: Negative Negative: Fever, Chills, Fatigue Eyes: Negative ENT: Negative Negative: Sore Throat Cardiovascular: Negative Negative: Palpitations, Chest Pain Respiratory: Negative Negative: Shortness Of Breath, Cough Positive: Abdominal Pain. Negative: Vomiting, Diarrhea, Nausea Positive: see HPI Musculoskeletal: Negative Skin: Negative Neurological: Negative Psychological: Normal All Other Systems Reviewed And Are Negative: Yes Physical Exam Triage Information Reviewed: Yes Vital Signs On Initial Exam: Initial Vitals Temp Pulse Resp BP Pulse Ox 98.1 F 71 17 152/100 100 07/07/17 13:30 07/07/17 13:30 07/07/17 13:30 07/07/17 13:30 07/07/17 13:30 Vital Signs Reviewed: Yes Appearance: Positive: Well-Appearing, Pain Distress - mild to moderate, Obese Skin: Positive: Warm, Dry Head/Face: Positive: Normal Head/Face Inspection Eyes: Positive: Normal, EOMI, Conjunctiva Clear ENT: Positive: Normal ENT inspection, Hearing grossly normal, Pharynx normal - mucosa moist Neck: Positive: Supple, Nontender Respiratory/Lung Sounds: Positive: Clear to Auscultation, Breath Sounds Present. Negative: Rales, Rhonchi, Wheezes Cardiovascular: Positive: Normal, RRR, S1, S2. Negative: Leg Edema Left, Leg Edema Right Abdomen Description: Positive: Distended - mild, Other: - lower ab/pelvic TTP, most notably over LLQ - no rebounding. Negative: CVA Tenderness (R), CVA Tenderness (L) Bowel Sounds: Positive: Present Pelvic Exam: Positive: other - deferred as TVUS reveals hemorrhagic cyst and pt is on coumadin - discussed w/ Dr. Dobbs as well who did not feel this exam was necessary either. Musculoskeletal: Positive: Normal, Strength/ROM Intact Neurological: Positive: Normal, Sensory/Motor Intact, Alert, Oriented to Person Place, Time, CN Intact II-III Psychiatric: Positive: Normal - [place] Coma Scale Coma Scale Total: 15 Diagnostics - Vital Signs Vital Signs Temp Pulse Resp BP Pulse Ox 07/07/17 16:11 19 07/07/17 13:30 98.1 F 71 17 152/100 100 - Laboratory Lab Results: Lab Results 07/07/17 07/07/17 07/07/17 Range/Units 12:45 12:45 12:45 WBC 12.5 H (3.5-10.8) 10^3/ul RBC 4.88 (4.0-5.4) 10^6/ul Hgb 12.5 (12.0-16.0) g/dl Hct 39 (35-47) % MCV 79 L (80-97) fL MCH 26 L (27-31) pg MCHC 32 (31-36) g/dl RDW 18 H (10.5-15) % Plt Count 325 (150-450) 10^3/ul MPV 9 (7.4-10.4) um3 Neut % (Auto) 67.6 (38-83) % Lymph % (Auto) 26.4 (25-47) % [place] % (Auto) 4.5 (1-9) % Eos % (Auto) 1.0 (0-6) % Baso % (Auto) 0.5 (0-2) % Absolute Neuts (auto) 8.5 H (1.5-7.7) 10^3/ul Absolute Lymphs (auto) 3.3 (1.0-4.8) 10^3/ul Absolute Monos (auto) 0.6 (0-0.8) 10^3/ul Absolute Eos (auto) 0.1 (0-0.6) 10^3/ul Absolute Basos (auto) 0.1 (0-0.2) 10^3/ul Absolute Nucleated RBC 0 10^3/ul Nucleated RBC % 0 INR (Anticoag Therapy) 2.21 H (0.77-1.02) APTT 40.5 H (26.0-36.3) seconds Sodium 137 (133-145) mmol/L Potassium TNP Chloride 104 (101-111) mmol/L Carbon Dioxide 25 (22-32) mmol/L Anion Gap 8 (2-11) mmol/L BUN 12 (6-24) mg/dL Creatinine 0.66 (0.51-0.95) mg/dL Est GFR ( Amer) 129.6 (>60) Est GFR (Non-Af Amer) 100.8 (>60) BUN/Creatinine Ratio 18.2 (8-20) Glucose 67 L (70-100) mg/dL Lactic Acid (0.5-2.0) mmol/L Calcium 9.3 (8.6-10.3) mg/dL Total Bilirubin 0.50 (0.2-1.0) mg/dL AST TNP ALT 11 (7-52) U/L Alkaline Phosphatase 50 (34-104) U/L C-Reactive Protein 3.41 (< 5.00) mg/L Total Protein 7.2 (6.4-8.9) g/dL Albumin 4.6 (3.2-5.2) g/dL Globulin 2.6 (2-4) g/dL Albumin/Globulin Ratio 1.8 (1-3) Lipase 30 (11.0-82.0) U/L Beta HCG, Quant < 0.60 mIU/mL Urine Color Urine Appearance Urine pH (5-9) Ur Specific [place] (1.010-1.030) Urine Protein (Negative) Urine Ketones (Negative) Urine Blood (Negative) Urine Nitrate (Negative) Urine Bilirubin (Negative) Urine Urobilinogen (Negative) Ur Leukocyte Esterase (Negative) Urine WBC (Auto) (Absent) Urine RBC (Auto) (Absent) Ur Squamous Epith Cells (Absent) Urine Bacteria (Absent) Urine Glucose (Negative) 07/07/17 07/07/17 07/07/17 Range/Units 13:54 14:10 17:12 WBC (3.5-10.8) 10^3/ul RBC (4.0-5.4) 10^6/ul Hgb (12.0-16.0) g/dl Hct (35-47) % MCV (80-97) fL MCH (27-31) pg MCHC (31-36) g/dl RDW (10.5-15) % Plt Count (150-450) 10^3/ul MPV (7.4-10.4) um3 Neut % (Auto) (38-83) % Lymph % (Auto) (25-47) % [place] % (Auto) (1-9) % Eos % (Auto) (0-6) % Baso % (Auto) (0-2) % Absolute Neuts (auto) (1.5-7.7) 10^3/ul Absolute Lymphs (auto) (1.0-4.8) 10^3/ul Absolute Monos (auto) (0-0.8) 10^3/ul Absolute Eos (auto) (0-0.6) 10^3/ul Absolute Basos (auto) (0-0.2) 10^3/ul Absolute Nucleated RBC 10^3/ul Nucleated RBC % INR (Anticoag Therapy) (0.77-1.02) APTT (26.0-36.3) seconds Sodium (133-145) mmol/L Potassium 3.4 L Chloride (101-111) mmol/L Carbon Dioxide (22-32) mmol/L Anion Gap (2-11) mmol/L BUN (6-24) mg/dL Creatinine (0.51-0.95) mg/dL Est GFR ( Amer) (>60) Est GFR (Non-Af Amer) (>60) BUN/Creatinine Ratio (8-20) Glucose (70-100) mg/dL Lactic Acid 0.6 (0.5-2.0) mmol/L Calcium (8.6-10.3) mg/dL Total Bilirubin (0.2-1.0) mg/dL AST 14 ALT (7-52) U/L Alkaline Phosphatase (34-104) U/L C-Reactive Protein (< 5.00) mg/L Total Protein (6.4-8.9) g/dL Albumin (3.2-5.2) g/dL Globulin (2-4) g/dL Albumin/Globulin Ratio (1-3) Lipase (11.0-82.0) U/L Beta HCG, Quant mIU/mL Urine Color Straw Urine Appearance Clear Urine pH 6.0 (5-9) Ur Specific [place] 1.005 L (1.010-1.030) Urine Protein Negative (Negative) Urine Ketones 1+ H (Negative) Urine Blood 1+ H (Negative) Urine Nitrate Negative (Negative) Urine Bilirubin Negative (Negative) Urine Urobilinogen Negative (Negative) Ur Leukocyte Esterase Negative (Negative) Urine WBC (Auto) Trace(0-5/hpf) (Absent) Urine RBC (Auto) Trace(0-2/hpf) (Absent) Ur Squamous Epith Cells Present H (Absent) Urine Bacteria 1+ H (Absent) Urine Glucose Negative (Negative) Result Diagrams: 07/07/17 12:45 07/07/17 17:12 Lab Statement: Any lab studies that have been ordered have been reviewed, and results considered in the medical decision making process. Re-Evaluation - Re-Evaluation First Eval Change: Improved Abdominal Pain Fem Course/Dx - Course Course Of Treatment: Spoke w/ Dr. Dobbs - no action at this time as there is no fluid observed around the 3.4cm ovarian cyst in Lt adnexa - conversation with pt per Dilia to f/u outpt for discussion re: possible hormone therapy to reduce risk of ovarian cyst recurrence. She had pain in the past with a cyst of this size. She experienced rupture with prolonged bleeding last time this happened. She agrees to return to ED if pain reaches a pinnacle as it did last time she ruptured and hemorrhaged so she may be assessed and tx'd ANY if she has cyst w / rupture. Pt agrees w/ plan. Further discussion about flank pain and h/o stone w/ + hematuria lead to CT w/o contrast to asses for urinary tract pathology. CT report reviewed and no signs of urinary tract stone or infection present - report states no acute findings. NOTE: INR is 2.2 which is not therapeutic level. Pt aware and will report to PCP. NOTE: pt's glucose was 67 upon arrival and she reported not eating much in the past few days d/t pain. D5 NS was ordered after discussion w/ Dr. Boyle. She was given this through IV along with morphine. Dillan RN, reports upon infusing IV moprhine, a streak of erythema, edema and pt reporting pruritis presented - he stopped infusion of morphine and flushed line with saline - erythema dissipated. Benadryl was then ordered to address what appeared to be adverse/allergic reaction. Her arm continued to be sore so D5/NS was d/c'd as well. Pt's sx resolved completely upon removal of these medications. - Diagnoses Provider Diagnoses: Left ovarian cyst Discharge - Discharge Plan Condition: Stable Disposition: HOME Patient Education Materials: Ovarian Cyst (ED) Forms: *Work Release Referrals: Jluis Dobbs MD [Medical Doctor] - Additional Instructions: You appear to have an ovarian cyst on the Left side. It is important that you rest and monitor your pain - if worse to the point where it feels like it is ruptured, return to ED. Otherwise, follow-up with Dr. Dobbs to discuss alternate plan of action (ie. possibly hormone therapy, etc). Call tomorrow to schedule an appointment. *If you develop fever, chills, vomiting, diarrhea, urinary pain/frequency, abnormal bleeding, return to ED NOTE: INR 2.2 today - contact coumadin prescriber to update.
--- NOTE | 2017-07-07 18:39 | RAD ---
CLINICAL HISTORY: Left flank pain, left lower quadrant pain COMPARISON: March 07, 2017 TECHNIQUE: Multiple contiguous axial CT scans were obtained of the abdomen and pelvis after the administration of intravenous contrast. Coronal and sagittal multiplanar reformations are submitted for review. FINDINGS: LUNG BASES: The lung bases are clear. LIVER: The liver is normal in shape, size, contour, and attenuation. BILE DUCTS: There is no intrahepatic or extrahepatic biliary dilatation. GALLBLADDER: The gallbladder is normal, without pericholecystic inflammatory change. PANCREAS: The pancreas is normal, without mass or ductal dilatation. SPLEEN: Normal in size and appearance. UPPER GI TRACT: Evaluation of the gastrointestinal tract is limited by incomplete gastric distention. The upper GI tract is unremarkable. SMALL BOWEL AND MESENTERY: The small bowel is normal in contour, course, and caliber. There is no obstruction or dilatation. COLON: The colon is normal in contour, course, caliber. There is no pericolonic inflammatory change. ADRENALS: Normal bilaterally. KIDNEYS: The kidneys are normal in shape, size, contour, and axis. There is no hydronephrosis or nephrolithiasis. BLADDER: The bladder is smooth in contour. PELVIC ORGANS: The uterus and adnexa are grossly normal for technique. AORTA: The aorta is normal. IVC: Unremarkable LYMPH NODES: There is no lymphadenopathy by size criteria. ABDOMINAL WALL: There is a small fat-containing of focal hernia BONES AND SOFT TISSUES: Unremarkable OTHER: None IMPRESSION: NO HYDRONEPHROSIS OR NEPHROLITHIASIS
[2017-07-07 18:55] VITALS: BP 144/73
[2017-07-07] MEDS ORDERED: oxyCODONE/Acetamin 5/325 MG* TAB PO ONE ×2 (18:56→18:58)
== END 2017-07-07 19:11 | disposition home or self-care (01) ==
LOC: ED 13:06
DX: N83.202 Unspecified ovarian cyst, left side (principal); Z87.891 Personal history of nicotine dependence; D64.9 Anemia, unspecified; Q24.9 Congenital malformation of heart, unspecified; I10 Essential (primary) hypertension; I35.9 Nonrheumatic aortic valve disorder, unspecified
CPT/HCPCS: 36415; 74176; 76830; 80053; 81003; 81015; 83605; 83690; 84702; 85025; 85610; 85730; 86140; 87086; 96360; 96374; 96375; 99283; A9270-GY; J1200; J2270; J2405

== ENCOUNTER 2017-08-28 08:26 | Emergency (ER) | payer BC ==
--- OUTSIDE RECORDS SUMMARY | 2017-08-28 08:39 | XMS REPORT ---
:1980 External Reference #:[id number] Author Organization [facility] Address [address] [place] [address] Phone [phone] Care Team Providers Name Role Phone Servando Rios MD Primary Care Physician Unavailable Payers Type Date Identification Numbers Payment Provider Subscriber Commercial Policy Number: [id number] [facility] [place] [place] PayID: [id number] [address] [place] [address] Problems Date Description Provider Status Onset: Abdominal pain Active Onset: Aortic valve stenosis Active Onset: Asthma Active Onset: H/O: anticoagulant therapy Active Onset: Diarrhea Active Onset: For resuscitation Active Onset: Hypertensive disorder Active Onset: Hemorrhage into peritoneal cavity Active Onset: Patient encounter status Active Family History Date Family Member(s) Problem(s) Comments Father Multiple Sclerosis (MS) Mother Endometriosis Number of Siblings Siblings: 4 Order Patient is the second of five children First Brother A&W Second Brother A&W Third Brother A&W First Sister Endometriosis Paternal Grandfather A&W Paternal Grandmother due to Heart Issues () Maternal Grandfather Hypertension Maternal Grandfather Prostate Cancer Maternal Grandfather Skin Cancer Maternal Grandmother Endometriosis Social History Type Date Description Comments Education Highest level of education completed is 12th grade Marital Status Patient is Living Situation Lives with spouse, son, daughter and lives at home Diet Diet is healthy and well balanced, no greens Sleep Typically sleeps 6 hours a night Pets Household pets include 2 cats and a dog Occupation Assistant Professor Of English at [employer] Cigarette Use Former cigarette smoker Alcohol Rarely drinks alcohol Smoking Patient is a former smoker Drug Use Denies drug use Daily Caffeine Drinks on average 1 cup of coffee a day Exercise Type/Frequency Current Exercises rarely Seat Belt/Car Seat Always uses a seat belt Currently Active The patient is currently sexually active Contraceptive Methods Current methods of control used include tubal ligation STD's Has high risk HPV Allergies, Adverse Reactions, Alerts Date Description Reaction Status Severity Comments 01/02/2006 NKDA active Medications Medication Date Status Form Strength Qnty SIG Indications Ordering Provider Neurontin 07/07/ Active Capsules 100mg Three Times Unknown 2017 Daily Warfarin Sodium / Active Tablets 7.5mg 1 po qhs Unknown 0000 Oxycodone-Aceta 02/25/ Hx Tablets 5-325mg 14tab take 1-2 tabs Phaelon minophen 2016 by mouth q4-6 MD Dilia 02/27/ hours as 2017 needed for pain Synthroid 01/23/ Hx Tablets 50mcg Every Day Unknown 2016 Dilaudid 01/23/ Hx Tablets 2mg Q6H Unknown 2016 Percocet 01/23/ Hx Tablets 5-325mg 20tab Q4H Unknown 2016 s 2016 Vitamin D /17/ Hx Tablets 1000Unit Every Day Unknown (Cholecalcifero 2017 - l) [address] /17/ Hx Tablets 20mg Twice Daily Unknown Maximum 2017 - Strength 2017 Coumadin /17/ Hx Tablets 5mg Every Evening Unknown 2016 - 2016 Dilaudid /17/ Hx Tablets 2mg 20tab Q6H prn Unknown 2016 - s 2016 Coumadin /17/ Hx Tablets 5mg Every Evening Unknown 2016 Imitrex 05/24/ Hx Tablets 50mg Every Day Unknown 2015 - 2016 Hydrocodone-Kapil 01/03/ Hx Tablets 5-325mg 14tab take 1-2 tabs Phaelon taminophen 2015 PO Q4-6 hrs MD Dilia 02/06/ prn ovarian 2017 cyst pain Ibuprofen 12/25/ Hx Tablets 600mg 30tab take one tab Phaelon 2015 by mouth MD Dilia 01/03/ every 6 hours 2016 as needed for pain Epipen 2-Yao 04/05/ Hx Solution 0.3mg/0.3 See Unknown 2014 - Auto-Inje ML Instructions 2018 Vicodin 03/04/ Hx Tablets 5-500mg 20tab 1 tablet po q Dvorah 2008 - s 4-6 hours prn Akhil, 12/06/ pain M.DBrian 2016 Nuvaring 04/15/ Hx Insert 0.015mg/D 1unit use one Darby 2007 - ay;0.12mg s vaginally Loly, 10/25/ /D every 3 weeks CNM 2007 as directed Celexa 10/23/ Hx Tablets 20mg 90tab 1/2 pill qd x Darby 2007 - s 1wk then 1 po Loly, 10/25/ qd CNM 2007 Vicodin Es 10/21/ Hx Tablets 7.5mg;750 30tab 1-2 po q 6hrs Darby 2007 - mg s prn pain Loly, 10/25/ CNM 2007 Amitriptyline 10/21/ Hx Tablets 25mg 30tab 1 po qd Darby 2007 - s Loly, 10/25/ CNM 2007 Hydrocodone 00/ Hx Unknown & 0000 - Acetaminophen 2007 Cipro / Hx Unknown 0000 - 2007 Antibiotics 00/ Hx Unknown Before Dental 0000 - Work 2015 Magnesium Oxide 00/ Hx Tablets 400mg 2 po qhs Unknown 0000 - 2016 Ferrous Sulfate / Hx Tablets 325(65Fe) 2 po qhs Unknown 0000 - mg 2016 Metoprolol / Hx Tablets 50mg take one half Unknown Succinate ER 0000 - ER 24HR tablet by 02/11/ mouth once a 2016 day Vitamin D3 00/ Hx Capsules 5000Unit 2 po qam Unknown Maximum 0000 - Strength 2016 Trinessa (28) 00/00/ Hx Tablets 0.18/0.21 1 by mouth Unknown 0000 - 5/0.25 every day 02/04/ mg-35 mcg 2016 Hydrocodone-Kapil 00/ Hx Tablets 1-2 po prn Unknown taminophen 0000 - 2015 Probiotic 00/00/ Hx Capsules Unknown 0000 - 01/12/ 2018 Levothyroxine / Hx Tablets 25mcg 1 by mouth Unknown Sodium 0000 - every day 2017 Lovenox / Hx 100mg Unknown 0000 - 2016 Immunizations CPT Code Status Date Vaccine Lot # [id number] Given 05/25/2008 Influenza Virus Vaccine 3Years Or Older Vital Signs Date Vital Result Comment 08/08/2017 BP Systolic 108 mmHg BP Diastolic 70 mmHg Height 64 inches 5'4" Weight 202.00 lb BMI (Body Mass Index) 34.7 kg/m2 Last Menstrual Period 8168942 3 Parity 2 07/07/2017 BP Systolic 144 mmHg BP Diastolic 73 mmHg Body Temperature 98.5 F Heart Rate 70 /min Respiratory Rate 19 /min Height 64 inches Weight 203.00 lb BMI (Body Mass Index) 34.8 kg/m2 04/07/2017 BP Systolic 118 mmHg BP Diastolic 80 mmHg Height 64 inches 5'4" Weight 209.00 lb BMI (Body Mass Index) 35.9 kg/m2 3 Parity 2 03/14/2017 BP Systolic 118 mmHg BP Diastolic 78 mmHg Body Temperature 98.1 F Height 64 inches 5'4" Weight 201.00 lb BMI (Body Mass Index) 34.5 kg/m2 3 Parity 2 03/10/2017 BP Systolic 132 mmHg BP Diastolic 86 mmHg Body Temperature 98.4 F Height 64 inches 5'4" Weight 205.00 lb BMI (Body Mass Index) 35.2 kg/m2 Last Menstrual Period 2134925 3 Parity 2 02/25/2017 BP Systolic 122 mmHg BP Diastolic 72 mmHg Body Temperature 97.6 F Oral Heart Rate 64 /min Respiratory Rate 20 /min Height 64 inches 5'4" Weight 208.00 lb BMI (Body Mass Index) 35.7 kg/m2 Last Menstrual Period 9449424 3 Parity 3 02/21/2017 BP Systolic 122 mmHg BP Diastolic 82 mmHg Height 64 inches 5'4" Weight 206.00 lb BMI (Body Mass Index) 35.4 kg/m2 3 Parity 3 01/23/2017 BP Systolic 144 mmHg BP Diastolic 69 mmHg Body Temperature 97.7 F Heart Rate 59 /min Respiratory Rate 17 /min Height 64 inches Weight 208.00 lb BMI (Body Mass Index) 35.6 kg/m2 04/25/2016 BP Systolic 112 mmHg BP Diastolic 78 mmHg Height 64 inches 5'4" Weight 216.00 lb BMI (Body Mass Index) 37.1 kg/m2 3 Parity 3 02/21/2016 BP Systolic 110 mmHg BP Diastolic 78 mmHg Height 64 inches 5'4" Weight 219.00 lb BMI (Body Mass Index) 37.6 kg/m2 3 Parity 2 12/26/2015 BP Systolic 132 mmHg BP Diastolic 96 mmHg Body Temperature 98.4 F Heart Rate 60 /min Respiratory Rate 12 /min Height 64 inches 5'4" Weight 219.00 lb BMI (Body Mass Index) 37.6 kg/m2 Last Menstrual Period 8639907 3 Parity 2 12/08/2015 BP Systolic 118 mmHg BP Diastolic 84 mmHg Height 64 inches 5'4" Weight 219.00 lb BMI (Body Mass Index) 37.6 kg/m2 Last Menstrual Period 7317968 3 Parity 2 07/14/2008 BP Systolic 122 mmHg BP Diastolic 80 mmHg Height 64 inches 5'4" Weight 195.00 lb BMI (Body Mass Index) 33.5 kg/m2 Last Menstrual Period 0 06/15/2008 BP Systolic 140 mmHg BP Diastolic 100 mmHg Body Temperature 96.5 F Height 64 inches 5'4" Weight 205.00 lb BMI (Body Mass Index) 35.2 kg/m2 Last Menstrual Period 0 06/08/2008 BP Systolic 120 mmHg BP Diastolic 80 mmHg Body Temperature 95.9 F Heart Rate 76 /min Respiratory Rate 12 /min Height 64 inches 5'4" Weight 207.00 lb BMI (Body Mass Index) 35.5 kg/m2 Last Menstrual Period 0 2 Parity 1 04/11/2006 BP Systolic 128 mmHg BP Diastolic 84 mmHg Height 64 inches 5'4" Weight 163.00 lb BMI (Body Mass Index) 28.0 kg/m2 Last Menstrual Period 2295919 01/08/2006 BP Systolic 110 mmHg BP Diastolic 68 mmHg Height 64 inches 5'4" Last Menstrual Period 9224746 1 Parity 1 01/02/2006 BP Systolic 120 mmHg BP Diastolic 72 mmHg Body Temperature 98.0 F Heart Rate 70 /min Respiratory Rate 16 /min Height 64 inches 5'4" Weight 175.00 lb BMI (Body Mass Index) 30.0 kg/m2 Last Menstrual Period 5371802 1 Parity 1 Results Test Date Test Result H/L Range Note Laboratory Studies 07/07/2017 Absolute Basophils (auto) 0.1 10^3/ul 0- 0.2 Absolute Eosinophils (auto) 0.1 10^3/ul 0-0.6 Absolute Lymphocytes (auto) 3.3 10^3/ul 1.0-4.8 Absolute Monocytes (auto) 0.6 10^3/ul 0-0.8 Absolute Neutrophils (auto) 8.5 10^3/ul High 1.5-7.7 Activated Partial Thromboplast Time 40.5 seconds High 26.0-36.3 Alanine Aminotransferase (Alt/SGPT) 11 U/L 7-52 Albumin 4.6 g/dL 3.2-5.2 Albumin/Globulin Ratio 1.8 1-3 Alkaline Phosphatase 50 U/L 34-104 Anion Gap 8 mmol/L 2-11 BUN/Creatinine Ratio 18.2 8-20 Basophils (%) (Auto) 0.5 % 0-2 Blood Urea Nitrogen 12 mg/dL 6-24 C-Reactive Protein 3.41 mg/L 0-5.00 Calcium Level 9.3 mg/dL 8.6-10.3 Carbon Dioxide Level 25 mmol/L 22-32 Chloride Level 104 mmol/L 101-111 Creatinine 0.66 mg/dL 0.51-0.95 Eosinophils (%) (Auto) 1.0 % 0-6 Estimated GFR () 129.6 Estimated GFR (Non- 100.8 Globulin 2.6 g/dL 2-4 Glucose Level 67 mg/dL Low 70-100 Hematocrit 39 % 35-47 Hemoglobin 12.5 g/dL 12.0-16.0 International Ratio (Anticoag Ther) 2.21 High 0.77-1.02 Lipase 30 U/L 11.0-82.0 Lymphocytes (%) (Auto) 26.4 % 25-47 Mean Corpuscular Hemoglobin 26 pg Low 27-31 Mean Corpuscular Hemoglobin Concent 32 g/dL 31-36 Mean Corpuscular Volume 79 fL Low 80-97 Mean Platelet Volume 9 um3 7.4-10.4 Monocytes (%) (Auto) 4.5 % 1-9 Neutrophils (%) (Auto) 67.6 % 38-83 Nucleated RBC Absolute Count (auto) 0 10^3/ul Nucleated Red Blood Cells % 0 Platelet Count 325 10^3/ul 150-450 Red Blood Count 4.88 10^6/ul 4.0-5.4 Red Cell Distribution Width 18 % High 10.5-15 Sodium Level 137 mmol/L 133-145 Total Bilirubin 0.50 mg/dL 0.2-1.0 Total Protein 7.2 g/dL 6.4-8.9 White Blood Count 12.5 10^3/ul High 3.5-10.8 Laboratory Studies 07/07/2017 Aspartate Amino Transf (Ast/Sgot) 14 U/L 13 -39 Potassium Level 3.4 mmol/L Low 3.5-5.0 Laboratory Studies 07/07/2017 Lactic Acid Level 0.6 mmol/L 0.5-2.0 Laboratory Studies 07/07/2017 Urine Specific [place] 1.005 Low 1.010- 1.030 Urine pH 6.0 5-9 Laboratory test 03/08/2017 Surgical Pathology SEE RESULT BELOW 1 finding Protime 03/07/2017 Inr 2.19 High 0.89-1.11 CBC Auto Diff 03/05/2017 White Blood Count 9.2 10^3/uL 3.5-10.8 Red Blood Count 4.97 10^6/uL 4.0-5.4 Hemoglobin 14.0 g/dL 12.0-16.0 Hematocrit 42 % 35-47 Mean Corpuscular Volume 85 fL 80-97 Mean Corpuscular Hemoglobin 28 pg 27-31 Mean Corpuscular HGB Conc 33 g/dL 31-36 Red Cell Distribution Width 13 % 10.5-15 Platelet Count 277 10^3/uL 150-450 Mean Platelet Volume 8 um3 7.4-10.4 Abs Neutrophils 5.9 10^3/uL 1.5-7.7 Abs Lymphocytes 2.4 10^3/uL 1.0-4.8 Abs Monocytes 0.6 10^3/uL 0-0.8 Abs Eosinophils 0.1 10^3/uL 0-0.6 Abs Basophils 0 10^3/uL 0-0.2 Abs Nucleated RBC 0 10^3/uL Granulocyte % 64.9 % 38-83 Lymphocyte % 26.6 % 25-47 Monocyte % 6.7 % 1-9 Eosinophil % 1.3 % 0-6 Basophil % 0.5 % 0-2 Nucleated Red Blood Cells % 0 Type And Screen 03/05/2017 Patient Blood Type B Positive Antibody Screen NEGATIVE Laboratory Studies 01/23/2017 Urine Specific [place] 1.005 Low 1.010- 1.030 Urine pH 6.0 5-9 Laboratory Studies 01/23/2017 Absolute Basophils (auto) 0 10^3/ul 0-0.2 Absolute Eosinophils (auto) 0.2 10^3/ul 0-0.6 Absolute Lymphocytes (auto) 3.2 10^3/ul 1.0-4.8 Absolute Monocytes (auto) 0.7 10^3/ul 0-0.8 Absolute Neutrophils (auto) 4.7 10^3/ul 1.5-7.7 Alanine Aminotransferase (Alt/SGPT) 12 U/L 7-52 Albumin 4.4 g/dL 3.2-5.2 Albumin/Globulin Ratio 1.6 1-3 Alkaline Phosphatase 55 U/L 34-104 Anion Gap 4 mmol/L 2-11 Aspartate Amino Transf (Ast/Sgot) 18 U/L 13-39 BUN/Creatinine Ratio 17.7 8-20 Basophils (%) (Auto) 0.3 % 0-2 Blood Urea Nitrogen 14 mg/dL 6-24 C-Reactive Protein 8.08 mg/L High 0-5.00 Calcium Level 9.2 mg/dL 8.6-10.3 Carbon Dioxide Level 26 mmol/L 22-32 Chloride Level 106 mmol/L 101-111 Creatinine 0.79 mg/dL 0.51-0.95 Eosinophils (%) (Auto) 2.3 % 0-6 Estimated GFR () 105.9 Estimated GFR (Non- 82.3 Globulin 2.7 g/dL 2-4 Glucose Level 92 mg/dL 70-100 Hematocrit 39 % 35-47 Hemoglobin 13.1 g/dL 12.0-16.0 International Ratio (Anticoag Ther) 3.46 High 0.89-1.11 Lactic Acid Level 0.4 mmol/L Low 0.5-2.0 Lipase 22 U/L 11.0-82.0 Lymphocytes (%) (Auto) 35.8 % 25-47 Magnesium Level 2.0 mg/dL 1.9-2.7 Mean Corpuscular Hemoglobin 29 pg 27-31 Mean Corpuscular Hemoglobin Concent 33 g/dL 31-36 Mean Corpuscular Volume 86 fL 80-97 Mean Platelet Volume 9 um3 7.4-10.4 Monocytes (%) (Auto) 7.8 % 1-9 Neutrophils (%) (Auto) 53.8 % 38-83 Nucleated RBC Absolute Count (auto) 0.01 10^3/ul Nucleated Red Blood Cells % 0.1 Platelet Count 283 10^3/ul 150-450 Potassium Level 3.8 mmol/L 3.5-5.0 Red Blood Count 4.56 10^6/ul 4.0-5.4 Red Cell Distribution Width 14 % 10.5-15 Sodium Level 136 mmol/L 133-145 Total Bilirubin 0.40 mg/dL 0.2-1.0 Total Protein 7.1 g/dL 6.4-8.9 White Blood Count 8.8 10^3/ul 3.5-10.8 Protime 01/04/2016 Inr 0.91 0.89-1.11 2 CBC Auto Diff 12/26/2015 White Blood Count 10.0 10^3/uL 3.5-10.8 Red Blood Count 4.52 10^6/uL 4.0-5.4 Hemoglobin 12.4 g/dL 12.0-16.0 Hematocrit 39 % 35-47 Mean Corpuscular Volume 86 fL 80-97 Mean Corpuscular Hemoglobin 28 pg 27-31 Mean Corpuscular HGB Conc 32 g/dL 31-36 Red Cell Distribution Width 14 % 10.5-15 Platelet Count 356 10^3/uL 150-450 Mean Platelet Volume 9 um3 7.4-10.4 Abs Neutrophils 6.7 10^3/uL 1.5-7.7 Abs Lymphocytes 2.7 10^3/uL 1.0-4.8 Abs Monocytes 0.5 10^3/uL 0-0.8 Abs Eosinophils 0.1 10^3/uL 0-0.6 Abs Basophils 0.1 10^3/uL 0-0.2 Abs Nucleated RBC 0 10^3/uL Granulocyte % 66.6 % 38-83 Lymphocyte % 26.7 % 25-47 Monocyte % 5.0 % 1-9 Eosinophil % 1.1 % 0-6 Basophil % 0.6 % 0-2 Nucleated Red Blood Cells % 0 Protime 12/26/2015 Inr 3.63 High 0.89-1.11 Laboratory test finding 12/26/2015 PTT (Aptt) 54.2 seconds High 26.0-36.3 Type And Screen 12/26/2015 Patient Blood Type B Positive Antibody Screen NEGATIVE Laboratory test finding 12/26/2015 Surgical Pathology SEE RESULT BELOW 3 Laboratory test finding 12/26/2015 Cytology SEE RESULT BELOW 4 Human Papilloma Virus Rna Negative Negative 5 Type And Screen 06/08/2008 Patient Blood Type B POSITIVE Antibody Screen NEGATIVE Specimen Discard Date 06/22/08 6 CBC With Manual Diff 06/08/2008 White Blood Count 13.4 CUMM High 4.8-10.8 Red Cell Count 4.01 CUMM Low 4.2-5.4 Hemoglobin 11.1 g/dL Low 12.0-16.0 Hematocrit 32 % Low 35-47 Mean Corpuscular Volume 81 um3 79-97 Mean Corpuscular Hemoglob 28 pg 27-31 Mean Corpuscular HGB Cone 34 g/dL 32-36 Redcell Distribution WDTH 13 % 10.5-15 Platelet Count 259 CUMM 150-450 Mean Platelet Volume 9.1 um3 7.4-10.4 Polysegmented Neutrophil 85 % High 38-83 Band Neutrophil 5 % 0-8 Lymphocyte 5 % Low 25-47 Monocyte 3 % 0-13 Atypical Lymph 2 % 0-6 Absolute Neutrophil Count 12.0 Anisocytosis 1+ Macrocytosis SLIGHT Polychromasia SLIGHT Laboratory test 05/19/2008 Genital For GRP B [POSITIVE FOR GR 7 finding Strep Only <SEE NOTE> GC/ZHL On Urine 03/23/2008 GC On Urine NEGATIVE Negative 8 CHL On Urine NEGATIVE Negative 9 Vad 10/27/2007 Vad Final NONREACTIVE Nonreactive 10 1 TS 10/27/2007 Patient Blood Type B POSITIVE Antibody Screen NEGATIVE 1 10/27/2007 Hepatitis B Surface Ag NEGATIVE Negative Rubella Screen IMMUNE Immune White Blood Count 10.4 CUMM 4.8-10.8 Abs Basophils 0 0-0.2 Abs Eosinophils 0.1 0-0.6 Absolute Neutrophil Count 7.1 1.5-7.7 Abs Lymphs 2.5 1.0-4.8 Abs Mononuclear 0.6 0-0.8 Basophil % 0.3 % 0-2 Hematocrit 37 % 35-47 Hemoglobin 12.5 g/dL 12.0-16.0 Eosinophil % 1.1 % 0-6 Gran % 68.2 % 38-83 Lymph % 24.5 % 20-45 Mean Corpuscular HGB Cone 34 g/dL 32-36 Mean Corpuscular Hemoglob 29 pg 27-31 Mean Corpuscular Volume 84 um3 79-97 Mean Platelet Volume 8.8 um3 7.4-10.4 Mononuclear % 5.9 % 1-9 Platelet Count 314 CUMM 150-450 Red Cell Count 4.36 CUMM 4.2-5.4 Redcell Distribution WDTH 14 % 10.5-15 RPR NON REACTIVE Nonreactive Parvovirus B19 AB (Igg,M) 10/27/2007 Parvovirus B19 AB (Igm) 0.1 index & lt;0.9 11 Parvovirus B19 AB (Igg) 2.0 index High <0.9 Laboratory test 10/26/2007 Urine Culture NG 12 finding Sensitivi Laboratory test 01/02/2006 Surgical Pathology Run: 01/06/06 13 13 finding <SEE NOTE> GC/Chlamydia Dna 01/02/2006 Chlamydia By Dna NEGATIVE Negative 14 Probe Probe GC By Dna Probe NEGATIVE Negative 15 Laboratory test finding 01/02/2006 Urine Culture Sensitivi NG 16 Liver Function Panel 01/02/2006 Albumin/Globulin Ratio 1.6 1-3 Albumin 4.2 GM/DL 3.6-5.4 Alkaline Phosphatase 57 U/L 30-110 Alt (SGPT) 18 U/L 14-54 Ast (Sgot) 25 U/L 12-42 Bilirubin Direct 0.3 mg/dL 0.1-0.5 Globulin 2.7 GM/DL 2-4 Indirect Bilirubin 0.7 mg/dL 0.1-0.75 Bilirubin Total 1.0 mg/dL 0.4-1.5 Total Protein 6.9 GM/DL 6.2-8.1 Type And Screen 01/02/2006 Patient Blood Type B POSITIVE Antibody Screen NEGATIVE Urinalysis Stat 01/02/2006 Ua Color YELLOW Appearance-Urine CLEAR Bilirubin-Ur NEGATIVE Negative Blood-Urine NEGATIVE Negative Esterase-Urine NEGATIVE Negative Glucose-Urine NEGATIVE Negative Ketones-Urine 1+ Negative Nitrite NEGATIVE Negative PH-Urine 8.0 5-9 Protein-Urine NEGATIVE Negative Rpqtcsrxyuta-Pe-JUE NEGATIVE Negative Specific [place]-Ur 1.008 Low 1.010-1.030 HCG Qualitative Stat 01/02/2006 HCG Qualitative NEGATIVE Negative 17 Serum Preg Internal Control OKAY Basic Metabolic Panel Stat 01/02/2006 One Over Creatinine 1.25 Anion Gap 9.0 mmol/L 2-11 18 BUN 11 mg/dL 6-24 Calcium 9.6 mg/dL 8.7-10.2 Chloride 105 mmol/L 101-111 Co2 (Carbon Dioxide) 22.0 mmol/L 22-32 Glucose 85 mg/dL 70-105 Potassium 4.3 mmol/L 3.5-5.0 Sodium 136 mmol/L 135-145 BUN/Creatinine Ratio 13.8 8-20 Creatinine 0.8 mg/dL 0.5-1.4 CBC With Electronic Diff Stat 01/02/2006 White Blood Count 9.2 CUMM 4.8- 10.8 Abs Basophils 0.1 0-0.2 Abs Eosinophils 0.1 0-0.6 Absolute Neutrophil Count 5.7 1.5-7.7 Abs Lymphs 2.7 1.0-4.8 Abs Mononuclear 0.6 0-0.8 Basophil % 0.6 % 0-2 Hematocrit 39 % 35-47 Hemoglobin 13.5 g/dL 12.0-16.0 Eosinophil % 1.1 % 0-6 Gran % 62.6 % 38-83 Lymph % 29.6 % 20-45 Mean Corpuscular HGB Cone 34 g/dL 32-36 Mean Corpuscular Hemoglob 28 pg 27-31 Mean Corpuscular Volume 83 um3 79-97 Mean Platelet Volume 7.9 um3 7.4-10.4 Mononuclear % 6.1 % 1-9 Platelet Count 391 CUMM 150-450 Red Cell Count 4.76 CUMM 4.2-5.4 Redcell Distribution WDTH 13 % 10.5-15 1 SEE RESULT BELOW Name: [place] ALANIZ : [address]: Jluis Dobbs MD Acct: [id number] Unit: [id number] AGE: 36 Location: [place] [address] Re03/08/17 Dis: 08/12/17 SEX: F Status: DIS Willy SPEC: [id number] [place]: 03/08/[address] [facility] [address]: Jluis Dobbs MD REQ: [id number] RECD: 03/08/17 STATUS: SOUT _ ORDERED: LEVEL 4 FINAL DIAGNOSIS Right fallopian tube and ovary, oophorectomy and salpingectomy: -- Hemorrhagic corpus luteum cyst. -- Completely transected fimbriated fallopian tube with no significant pathologic abnormalities. PRE-OPERATIVE DIAGNOSIS Acute abdominal pain, ruptured right ovarian cyst and hemiperitoneum GROSS DESCRIPTION The specimen is received in formalin labeled, Right Tube and Ovary, and consists of a 12 g, 3.8 x 2.6 x 1.7 cm previously disrupted ovary with an adherent 2.9 x 2.8 x 1.9 cm disrupted cyst. The outer surface is corrugated to smooth and focally shaggy collins-mckee to red-brown. The cut surface is rubbery to focally cystic with normal physiological features. The cut surface of the adherent cyst is markedly hemorrhagic red-brown. Received separately in the same container is a 3.1 by up to 0.7 cm fimbriated fallopian tube. The serosa is wrinkled to shaggy collins-mckee. The cut surface is focally cystic. Received separately in the same container is a 3.6 x 2.8 x 0.8 cm aggregate of red-brown blood clot and collins- mckee soft tissue fragments. Electronic Organ Mechanic sections are submitted in cassettes A through D to include fallopian tube in cassette D. Signed (signature on file) Patricia Rodriguez MD 1519 END OF REPORT * ML=Testing performed at Main Lab DEPARTMENT OF PATHOLOGY, [address] [place] [address] Rex Boateng M.D. Director [facility] # [id number] 2 under redq # [id number] 3 SEE RESULT BELOW Name: [place] ALANIZ : [address]: Jluis Dobbs MD Acct: [id number] Unit: [id number] AGE: 35 Location: [facility] Re12/26/15 SEX: F Status: REG REF SPEC: [id number] [place]: 12/26/15-[address] [facility] [address]: Jluis Dobbs MD REQ: [id number] RECD: 12/26/158451 STATUS: SOUT _ ORDERED: LEVEL IV COMMENTS: [id number] FINAL DIAGNOSIS Uterus, endometrium, biopsy: -- Weakly proliferative endometrium. -- No evidence of hyperplasia or neoplasia. PRE-OPERATIVE DIAGNOSIS Dysfunctional uterine bleeding. GROSS DESCRIPTION The specimen is received in formalin labeled, Endometrial Biopsy, and consists of a 1.5 x 1.5 x 0.4 cm aggregate of collins-white rubbery tissue fragments admixed with red -brown rubbery blood clot and scant mucus. The specimen is filtered and entirely submitted in one cassette. Signed (signature on file) Patricia Rodriguez MD 08/12 1417 END OF REPORT * ML=Testing performed at Main Lab DEPARTMENT OF PATHOLOGY, [address] [place] [address] Rex Boateng M.D. Director [facility] # [id number] 4 SEE RESULT BELOW Name: [place] ALANIZ : [address]: Jluis Dobbs MD Acct: [id number] Unit: [id number] AGE: 35 Location: [facility] Re12/26/15 SEX: F Status: REG REF SPEC: [id number] [place]: 12/26/15-[address] [facility] [address]: Jluis Dobbs MD REQ: [id number] RECD: 12/26/15-1599 STATUS: SOUT _ ORDERED: IMAGE ANALYSIS, HPV/Thin Prep COMMENTS: [id number] FINAL DIAGNOSIS Negative for Intraepithelial lesion or Malignancy A. Ectocervical/Endocervical Specimen Adequacy: Satisfactory of evaluation Transformation zone component identified Patient Information: HPV: High risk HPV RNA testing regardless of pap results. Actual Specimen Date: 12/26/15 Last Menstrual Date: 12/13/15 Other Pertinent History: Prior Unknown Prior Elsewhere Date Time Test Result Flag (u) Normal Range 12/26/15 1045 HPV RNA Negative Negative The high-risk HPV types detected by the assay include: 16, 18, 31, 33, 35, 39, 45, 51, 52, 56, 58, 59, 66, and 68. Signed (signature on file) ONEL Jacinto (ASCP) 12/26 1316 This Pap test was evaluated with the assistance of the ThinPrep Test Imaging System. Due to cytologic findings at the rocket engine component mechanic microscope, comprehensive manual rescreening by a Station Engineer may be required. The Pap Smear is a screening test designed to aid in the detection of premalignant and malignant conditions of the uterine cervix. It is not a diagnostic procedure and should not be used as the sole means of detecting cervical cancer. Both false- positive and false- negative reports do occur. Depending on your risk status, a Pap smear should be obtained and evaluated every 1-3 years. END OF REPORT * ML=Testing performed at [facility] DEPARTMENT OF PATHOLOGY, [address] [place] [address] Rex Boateng M.D. Director [facility] # [id number] 5 The high-risk HPV types detected by the assay include: 16, 18, 31, 33, 35, 39, 45, 51, 52, 56, 58, 59, 66, and 68. 6 PREADMISSION TESTING SAMPLES FOR BLOOD BANK WILL BE HELD FOR 14 DAYS FROM THE DATE OF COLLECTION *IF* THE FOLLOWING CRITERIA ARE MET: 1) THE PATIENT HAS *NOT* BEEN IN THE LAST 3 MONTHS. 2) THE PATIENT HAS *NOT* BEEN TRANSFUSED IN THE LAST 3 MONTHS. PREADMISSION TESTING SAMPLES WILL *NOT* BE HELD FOR 14 DAYS FROM PATIENTS WHO IN THE LAST 3 MONTHS: 1) HAVE BEEN 2) HAVE BEEN TRANSFUSED THESE PATIENTS *MUST* BE COLLECTED WITHIN 3 DAYS OF THE SURGERY DATE. 7 [POSITIVE FOR GRP B BETA STREP] POSITIVE FOR GRP B BETA STREP 8 . A negative urine result for a female patient who is clinically suspected of having a chlamydial or gonococcal infection does not rule out the presence of C.trachomatis or N.gonorrhoeae in the urogenital tract. Testing of an endocervical specimen is recommended in such cases. As well, a negative urine result for N. gonorrhoeae from a female has a lower negative predictive value than does an endocervical swab. . 9 . A negative urine result for a female patient who is clinically suspected of having a chlamydial or gonococcal infection does not rule out the presence of C.trachomatis or N.gonorrhoeae in the urogenital tract. Testing of an endocervical specimen is recommended in such cases. As well, a negative urine result for N. gonorrhoeae from a female has a lower negative predictive value than does an endocervical swab. . 10 FINAL INTERPRETATION: No HIV antibody is detected. . This information has been disclosed to you from confidential records which are protected by [place] law. State law prohibits you from making further disclosure of this information without the specific written consent of the person to whom it pertains, or as otherwise permitted by law. Any unauthorized further disclosure in violation of state law may result in a fine or intermediate sentence or both. General authorization for the release of medical or other information is not, except in limited circumstances set forth in Part 63, Title 10, of [facility], sufficient authorization for further disclosure. Disclosure of confidential HIV information that occurs as the result of a general authorization for the release of medical or other information will be in violation of the state law and may result in a fine or a intermediate sentence. . 11 Reference range: IgG and IgM Index <0.9 Negative 0.9-1.1 Equivocal >1.1 Positive Interpretation: NEGATIVE: No antibody detected. This individual may be susceptible to parvovirus B-19 infection. POSITIVE: Indicative of exposure to parvovirus B-19. EQUIVOCAL results are those results too close to the cut-off values to interpret. A second sample should be drawn in two weeks, if clinically indicated. Specific IgG persists for years, and provides lifetime immunity. A majority of adults show evidence of past infection. If definitive diagnosis of acute parvovirus infection is desired, a parvovirus B-19 IgM should be obtained. Due to the poor humoral immune response in the immunocompromised, the chronically anemic, and the fetus, both antibody and DNA PCR tests are recommended for definitive diagnosis of parvovirus B-19 infection in these patients. 12 FINAL: NO GROWTH DAY 2 (<1,000 CFU/mL) 13 Run: 01/06/06 1315 LIS Specimen Inquiry Run User: INTERFACE -- Name: AZ ALANIZ Age/Sex: 25/F Location: [facility]#: [id number] Unit#: [id number] Status: [facility] Room/Bed: Re01/02/06 Disch: Att Dr: Priyank Dobson MD. -- Spec #: [id number] Recd: 01/03/06 Status: [facility] #: [id number] SpType: SURGICAL P Sub Dr: Priyank Dobson MD. DIAGNOSIS Portion of right ovarian cyst, excision - A) Ovarian tissue with physiological changes including portion of corpus luteum cyst. B) Fibrin and blood. C) No malignancy. GROSS DESCRIPTION The specimen is received in formalin labelled "Az LimBrian Lynn, Portion of R Ovarian Cyst" and consists of three strips of rubbery, collins tissue measuring 2.0 x 1.0 x 0.6 cm. in aggregate. Total, one block. HISTORY PRE-OP DIAGNOSIS: Right ovarian torsion SPECIMEN PORTION OF RIGHT OVARIAN CYST -- Signed Electronically signed PARKER EDDY MD 01/06/06 -- END OF REPORT 14 * This method is approved for detection of Chlamydia trachomatis in Endocervical, Male Urethral and Conjunctival Specimens only. POSITIVE RESULT IN A POPULATION WITH LOW PREVALENCE OF DISEASE SHOULD BE INTERPRETED PRESUMPTIVE; INTERPRET RESULTS IN LIGHT OF HISTORY PHYSICAL FINDINGS . 15 * This method is approved for detection of Neisseria Gonnorrhoeae in Endocervical and Male Urethral Specimens only. POSITIVE RESULT IN A POPULATION WITH LOW PREVALENCE OF DISEASE SHOULD BE INTERPRETED PRESUMPTIVE; INTERPRET RESULTS IN LIGHT OF HISTORY PHYSICAL FINDINGS. . 16 FINAL: NO GROWTH DAY 2 (<1,000 CFU/mL) 17 If is still suspected, please repeat test after 48 to 72 hours. . 18 Anion gap measurement may be of limited value in the presence of any alkalosis, especially in a combined acid base disorder. . Procedures Date CPT Code Description Status 08/08/2017 49272 Echography Transvaginal Completed 03/08/2017 19269 Laparoscopy,REM. Adnexal Structures Completed 03/08/2017 56325 Laparoscopy,REM. Adnexal Structures Completed 02/21/2017 72672 Echography Transvaginal Completed 01/04/2016 53137 Endometrial Ablation,Hysteroscopy Completed 12/26/2015 16168 Cervical Dilator Inserted Completed 12/26/2015 98879 Biopsy Endometrial W/O Cervical Dilation Completed 06/09/2008 12413 Ligation/Transection Fallopian Tubes During Surgery Completed 06/09/2008 80922 Delivery Routine Completed 06/09/2008 68895 Delivery Only Completed 11/30/2007 27026 Nuchal Translucency Ultrasound /First Completed Gestation 11/30/2007 96049 Nuchal Translucency Ultrasound /First Completed Gestation 11/26/2007 87478 Nuchal Translucency Ultrasound /First Completed Gestation 10/27/2007 68088 OB Ultrasound First Trimester Completed 10/27/2007 98556 OB Ultrasound First Trimester Completed 04/11/2006 67306 Echography Uterus Limited Completed 01/02/2006 58312 Drain Ovarian Cyst(S) Abdominal Approach Completed Encounters Type Date Location Provider CPT E/M Dx Office Visit 08/08/2017 1:00p [facility] Sharath Landaverde M.D. 97253 N83.292 Office Visit 04/07/2017 1:00p [place] [address] Z48.816 D27.0 Z79.01 Office Visit 03/14/2017 1:30p [place] [address] Z48.816 Z79.01 Office Visit 03/10/2017 9:00a [place] [address] Z48.816 Z79.01 Office Visit 02/25/2017 2:40p [place] [address] Z01.818 N83.291 Office Visit 02/21/2017 3:15p [place] [address] D27.0 R10.31 K42.9 Z95.2 Office Visit 04/25/2016 8:00a [place] [address] R10.32 N92.0 Z95.2 Office Visit 02/21/2016 8:30a [place] [address] N92.0 Office Visit 12/26/2015 10:00a [place] [address] Z01.818 N92.0 Z95.2 Z79.01 Office Visit 12/08/2015 9:30a [place] [address] N92.0 Z95.2 Office Visit 06/08/2008 9:00a [facility] Office Sharath Landaverde M.D. 16885 V23.9 424.1 Office Visit 10/26/2007 8:20a [facility] Office SHIRA Artis 03868 V22.1 V26.33 Office Visit 01/08/2006 3:20p [facility] Office Priyank Dobson M.D. 35075 V67.00 Plan of Care Future Appointment(s):09/25/2017 11:00 am - Jluis Dobbs MD at [facility]07/2017 10:30 am - Ultrasounds at [facility]08/08/2017 - Sharath Landaverde M.D.N83.292 Other ovarian cyst, left sideComments:Rec sched f/u sonoRec discuss ovarian suppression to dec incidence of ovarian cyst with combination ocp or proges only with Dr.David Neuro and with Installer Technician. Aware to present to ER in case of strongpain
--- OUTSIDE RECORDS SUMMARY | 2017-08-28 08:39 | XMS REPORT ---
:1980 External Reference #:[id number] Author Organization [facility] Address [address] [place] [address] Phone [phone] Care Team Providers Name Role Phone Sumi Yan Care Team Information Stripper Color Unavailable Sumi Yan Primary Care Physician Unavailable Payers Type Date Identification Numbers Payment Provider Subscriber Health Maintenance Effective: Policy Number: Essential Plan Cherelle Alaniz [facility] ([facility]) 06/27/2016 [id number] [facility] PayID: [id number] [address] [address] [place] [address] Problems Description No Information Family History Date Family Member(s) Problem(s) Comments General Coronary Artery Disease (CAD) PGM. General Clotting diosorder PGM's family Father 57 Mother 57 First Son 9 First Daughter 14 Siblings 3 brothers, 1 sister. sister - endometriosis. Social History Type Date Description Comments Marital Status . 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 Cigarette Use Negative For Never Smoked Cigarettes ETOH Use Social Alcohol up to 3 glasses of wine a week. Smoking Patient has never smoked Exercise Type/Frequency Exercises regularly walks 2 miles every evening, bowflex, fit board. every week. Dom Violence Screen screening has been done feels emotionally and physically safe at home, at work, and in the community. Allergies, Adverse Reactions, Alerts Date Description Reaction Status Severity Comments 02/05/2017 NKDA active Medications Medication Date Status Form Strength Qnty SIG Indications Ordering Provider Progesterone 08/18/ Active Capsules 100mg 10cap one daily N85.00 Kailash De Guzman 2018 s Bradley campbell MD Amoxicillin 08/18/ Active Tablets 875mg 14tab one po bid H66.93 Kailash Maldonado 2018 s Bradley campbell MD Hydrocodone 08/18/ Active Tablets 5-300mg 14tab 1 by mouth R51 Kailash Maldonado Bitartrate/Acet 2018 s four times a Bradley aminophen day as dMD needed severe pain Warfarin Sodium / Active Tablets 5mg 1-2 by mouth Unknown 0000 every day-dr henry Gabapentin / Active Capsules 100mg take one Unknown 0000 capsule by mouth three times a day as needed for pain Azithromycin 07/24/ Hx Tablets 250mg 6tabs 2 by mouth Sumi Felix 2017 - today. 1 by Farrah, 08/18/ mouth daily M.D. 2018 x 4 Cheratussin ac 07/24/ Hx Solution 100-10mg/ 100ml 5 -10 Sumi Felix 2017 - 5ML milliliters Farrah, 08/18/ by mouth at M.D. 2018 night for cough Hydrocodone 07/17/ Hx Suer 10-8mg/5M 115ml 5ml po bid J20.8 Kailash Maldonado Polistirex/Chlo 2016 - L Bradley rpheniramine 08/18/ MD shannan Poliyessenia 2018 Work Excuse 07/17/ Hx should J20.8 Kailash Maldonado 2016 - remain out Bradley 08/18/ of work MD shannan 2017 through 07/18/17. No Active Hx Unknown Medications 2016 - 2016 Hydrocodone-Kapil 02/05/ Hx Tablets 5-325mg 60tab 1-2 by mouth G89.4 Sumi Felix taminophen 2016 - s daily prn Farrah, M.D. 2016 Levothyroxine 02/05/ Hx Tablets 50mcg 90tab 1 by mouth E03.9 Sumi Felix Sodium 2016 - s every day Farrah M.D. 2016 Famotidine 02/05/ Hx Tablets 40mg 90tab 1 by mouth Z00.00 Sumi Felix 2017 - s at bedtime Farrah M.D. 2016 Famotidine / Hx Tablets 40mg 1 tab by Unknown 0000 - mouth every hours 2016 Levothyroxine / Hx Tablets 50mcg 1 by mouth Unknown Sodium 0000 - every day 2016 Probiotic / Hx Capsules 2 by mouth Unknown 0000 - every day 2016 Vitamin D3 High / Hx Capsules 1000Unit 2 po qd Unknown Potency 0000 - 2016 Hydrocodone-Kapil / Hx Tablets 5-325mg 1-2 daily or Unknown taminophen 0000 - as needed 2016 Omeprazole / Hx Capsules 20mg 1 by mouth Unknown 0000 - DR every day 2016 Immunizations CPT Code Status Date Vaccine Lot # [id number] Given 05/16/2017 Tdap Tetanus, W Pertussis [id number] Vital Signs Date Vital Result Comment 08/18/2017 BP Systolic 146 mmHg BP Diastolic 92 mmHg Heart Rate 68 /min Body Temperature 97.5 F Height 64 inches 5'4" Weight 208.00 lb BMI (Body Mass Index) 35.7 kg/m2 07/17/2017 BP Systolic 118 mmHg BP Diastolic 60 mmHg Heart Rate 62 /min Body Temperature 98.6 F Respiratory Rate 17 /min Height 64 inches 5'4" Weight 210.00 lb BMI (Body Mass Index) 36.0 kg/m2 05/16/2017 BP Systolic 138 mmHg BP Diastolic 80 mmHg Heart Rate 60 /min Body Temperature 97.9 F Height 64 inches 5'4" Weight 211.12 lb BMI (Body Mass Index) 36.2 kg/m2 03/28/2017 BP Systolic 116 mmHg BP Diastolic 64 mmHg Heart Rate 68 /min Respiratory Rate 16 /min Height 64.5 inches 5'4.50" Weight 209.00 lb BMI (Body Mass Index) 35.3 kg/m2 02/05/2017 BP Systolic 120 mmHg BP Diastolic 70 mmHg Heart Rate 68 /min Body Temperature 98.0 F Respiratory Rate 18 /min Height 64.5 inches 5'4.50" Weight 206.00 lb BMI (Body Mass Index) 34.8 kg/m2 Results Test Date Test Result H/L Range Note Laboratory test finding 07/07/2017 Potassium Redraw 3.4 mmol/L Low 3.5- 5.0 Ast Redraw 14 U/L 13-39 Urinalysis Profile 07/07/2017 Urine Color Straw Urine Appearance Clear Urine Specific [place] 1.005 Low 1.010-1.030 Urine pH 6.0 5-9 Urine Urobilinogen Negative Negative Urine Ketones 1+ Negative Urine Protein Negative Negative Urine Leukocytes Negative Negative Urine Blood 1+ Negative Urine Nitrite Negative Negative Urine Bilirubin Negative Negative Urine Glucose Negative Negative Urine White Blood Cell Trace(0-5/hpf) Absent Urine Red Blood Cell Trace(0-2/hpf) Absent Urine Bacteria 1+ Absent Urine Squamous Epithelial Cell Present Absent Laboratory test 07/07/2017 Urine Culture And SEE RESULT 1 finding Sensitivities BELOW Laboratory test 07/07/2017 Lactic Acid 0.6 mmol/L 0.5-2.0 2 finding Laboratory test 07/07/2017 Inr/Protime 2.21 High 0.77-1.02 3 finding Partial Thrombo Time PTT 40.5 seconds High 26.0-36.3 CBC Auto Diff 07/07/2017 White Blood Count 12.5 10^3/uL High 3.5-10.8 Red Blood Count 4.88 10^6/uL 4.0-5.4 Hemoglobin 12.5 g/dL 12.0-16.0 Hematocrit 39 % 35-47 Mean Corpuscular Volume 79 fL Low 80-97 Mean Corpuscular Hemoglobin 26 pg Low 27-31 Mean Corpuscular HGB Conc 32 g/dL 31-36 Red Cell Distribution Width 18 % High 10.5-15 Platelet Count 325 10^3/uL 150-450 Mean Platelet Volume 9 um3 7.4-10.4 Abs Neutrophils 8.5 10^3/uL High 1.5-7.7 Abs Lymphocytes 3.3 10^3/uL 1.0-4.8 Abs Monocytes 0.6 10^3/uL 0-0.8 Abs Eosinophils 0.1 10^3/uL 0-0.6 Abs Basophils 0.1 10^3/uL 0-0.2 Abs Nucleated RBC 0 10^3/uL Granulocyte % 67.6 % 38-83 Lymphocyte % 26.4 % 25-47 Monocyte % 4.5 % 1-9 Eosinophil % 1.0 % 0-6 Basophil % 0.5 % 0-2 Nucleated Red Blood Cells % 0 Comp Metabolic Panel 07/07/2017 Sodium 137 mmol/L 133-145 Chloride 104 mmol/L 101-111 Co2 Carbon Dioxide 25 mmol/L 22-32 Glucose 67 mg/dL Low 70-100 Blood Urea Nitrogen 12 mg/dL 6-24 Creatinine 0.66 mg/dL 0.51-0.95 BUN/Creatinine Ratio 18.2 8-20 Calcium 9.3 mg/dL 8.6-10.3 Total Protein 7.2 g/dL 6.4-8.9 Albumin 4.6 g/dL 3.2-5.2 Globulin 2.6 g/dL 2-4 Albumin/Globulin Ratio 1.8 1-3 Total Bilirubin 0.50 mg/dL 0.2-1.0 Alkaline Phosphatase 50 U/L 34-104 Alt 11 U/L 7-52 Egfr Non- 100.8 >60 Egfr 129.6 >60 4 Potassium TNP mmol/L 3.5-5.0 5 Anion Gap 8 mmol/L 2-11 Ast TNP U/L 13-39 6 Laboratory test finding 07/07/2017 Lipase 30 U/L 11.0-82.0 C Reactive Protein 3.41 mg/L < 5.00 7 HCG < 0.60 mIU/mL 8 Laboratory test finding 04/02/2017 TSH (Thyroid Stim Horm) 2.09 mcIU/mL 0.34-5.60 T3 Free 3.20 pg/mL 2.5-3.9 Free T4 (Free Thyroxine) 0.98 ng/dL 0.61-1.12 Laboratory test finding 03/07/2017 HCG < 0.60 mIU/mL 9 Comp Metabolic Panel 03/07/2017 Sodium 135 mmol/L 133-145 Potassium 3.8 mmol/L 3.5-5.0 Chloride 106 mmol/L 101-111 Co2 Carbon Dioxide 22 mmol/L 22-32 Anion Gap 7 mmol/L 2-11 Glucose 99 mg/dL 70-100 Blood Urea Nitrogen 14 mg/dL 6-24 Creatinine 0.67 mg/dL 0.51-0.95 BUN/Creatinine Ratio 20.9 High 8-20 Albumin 4.5 g/dL 3.2-5.2 Total Bilirubin 0.40 mg/dL 0.2-1.0 Alkaline Phosphatase 55 U/L 34-104 Alt 11 U/L 7-52 Ast 16 U/L 13-39 Egfr Non- 99.6 >60 Egfr 128.1 >60 10 Calcium 9.4 mg/dL 8.6-10.3 Total Protein 7.5 g/dL 6.4-8.9 Globulin 3.0 g/dL 2-4 Albumin/Globulin Ratio 1.5 1-3 CBC No Diff 03/07/2017 White Blood Count 13.1 10^3/uL High 3.5-10.8 Red Blood Count 4.97 10^6/uL 4.0-5.4 Hemoglobin 14.1 g/dL 12.0-16.0 Hematocrit 43 % 35-47 Mean Corpuscular Volume 86 fL 80-97 Mean Corpuscular Hemoglobin 29 pg 27-31 Mean Corpuscular HGB Conc 33 g/dL 31-36 Red Cell Distribution Width 13 % 10.5-15 Platelet Count 324 10^3/uL 150-450 Mean Platelet Volume 9 um3 7.4-10.4 Laboratory test finding 03/07/2017 Protime 2.19 High 0.89-1.11 CBC Auto Diff 03/05/2017 [...] Nucleated Red Blood Cells % 0 Type & Screen 03/05/2017 Patient Blood Type B Positive Antibody Screen NEGATIVE CBC Auto Diff 01/23/2017 White Blood Count 8.8 10^3/uL 3.5-10.8 Red Blood Count 4.56 10^6/uL 4.0-5.4 Hemoglobin 13.1 g/dL 12.0-16.0 Hematocrit 39 % 35-47 Mean Corpuscular Volume 86 fL 80-97 Mean Corpuscular Hemoglobin 29 pg 27-31 Mean Corpuscular HGB Conc 33 g/dL 31-36 Red Cell Distribution Width 14 % 10.5-15 Platelet Count 283 10^3/uL 150-450 Mean Platelet Volume 9 um3 7.4-10.4 Abs Neutrophils 4.7 10^3/uL 1.5-7.7 Abs Lymphocytes 3.2 10^3/uL 1.0-4.8 Abs Monocytes 0.7 10^3/uL 0-0.8 Abs Eosinophils 0.2 10^3/uL 0-0.6 Abs Basophils 0 10^3/uL 0-0.2 Abs Nucleated RBC 0.01 10^3/uL Granulocyte % 53.8 % 38-83 Lymphocyte % 35.8 % 25-47 Monocyte % 7.8 % 1-9 Eosinophil % 2.3 % 0-6 Basophil % 0.3 % 0-2 Nucleated Red Blood Cells % 0.1 Inr/Protime 01/23/2017 Inr 3.46 High 0.89-1.11 Laboratory test finding 01/23/2017 Lactic Acid 0.4 mmol/L Low 0.5-2.0 11 Urinalysis Profile 01/23/2017 Urine Color Straw Urine Appearance Clear Urine Specific [place] 1.005 Low 1.010-1.030 Urine pH 6.0 5-9 Urine Urobilinogen Negative Negative Urine Ketones Negative Negative Urine Protein Negative Negative Urine Leukocytes Negative Negative Urine Blood 1+ Negative Urine Nitrite Negative Negative Urine Bilirubin Negative Negative Urine Glucose Negative Negative Urine White Blood Cell Trace(0-5/hpf) Absent Urine Red Blood Cell Trace(0-2/hpf) Absent Urine Bacteria 1+ Absent Urine Squamous Epithelial Cell Present Absent Comp Metabolic Panel 01/23/2017 Sodium 136 mmol/L 133-145 Potassium 3.8 mmol/L 3.5-5.0 Chloride 106 mmol/L 101-111 Co2 Carbon Dioxide 26 mmol/L 22-32 Anion Gap 4 mmol/L 2-11 Glucose 92 mg/dL 70-100 Blood Urea Nitrogen 14 mg/dL 6-24 Creatinine 0.79 mg/dL 0.51-0.95 BUN/Creatinine Ratio 17.7 8-20 Calcium 9.2 mg/dL 8.6-10.3 Total Protein 7.1 g/dL 6.4-8.9 Albumin 4.4 g/dL 3.2-5.2 Globulin 2.7 g/dL 2-4 Albumin/Globulin Ratio 1.6 1-3 Total Bilirubin 0.40 mg/dL 0.2-1.0 Alkaline Phosphatase 55 U/L 34-104 Alt 12 U/L 7-52 Ast 18 U/L 13-39 Egfr Non- 82.3 >60 Egfr 105.9 >60 12 Laboratory test finding 01/23/2017 Magnesium 2.0 mg/dL 1.9-2.7 Lipase 22 U/L 11.0-82.0 HCG < 0.60 mIU/mL 13 C Reactive Protein 8.08 mg/L High < 5.00 14 Urine Culture And Sensitivities SEE RESULT BELOW 15 1 SEE RESULT BELOW Name: CHERELLE ALANIZ : [address]: Juliet Boyle MD Acct: [id number] Unit: [id number] AGE: 37 Location: ED Re07/07/17 SEX: F Status: DEP ER SPEC: [id number] [place]: 07/07/17-1410 [facility] DR: Román Neil MD REQ: [id number] RECD: 07/07/17 STATUS: FOUZIA HAINES DR: [facility] Sumi Yan MD _ SOURCE: URINE [facility]: ORDERED: Urine Culture Procedure Result Reported Site Urine Culture Final 07/08/17- 1300 ML No growth of clinically significant organisms * ML - MAIN LAB ([facility]) . END OF REPORT * ML=Testing performed at Main Lab DEPARTMENT OF PATHOLOGY, [address] [place] [address] Rex Boateng M.D. Director [facility] # [id number] 2 [facility] Severe Sepsis and Septic Shock Management Bundle Measure requires all lactic acids initially measuring >2.0 mmol/L be repeated. 3 Please note the change in INR reference range effective 17. 4 Because ethnic data is not always readily available, this report includes an eGFR for both -Americans and non- Americans. The National Kidney Disease Education Program (NKDEP) does not endorse the use of the MDRD equation for patients that are not between the ages of 18 and 70, are , have extremes of body size, muscle mass, or nutritional status, or are non- or non-. According to the National Kidney Foundation, irrespective of diagnosis, the stage of the disease is based on the level of kidney function: Stage Description GFR(mL/min/1.73 m(2)) 1 Kidney damage with normal or decreased GFR 90 2 Kidney damage with mild decrease in GFR 60-89 3 Moderate decrease in GFR 30-59 4 Severe decrease in GFR 15-29 5 Kidney failure <15 (or dialysis) 5 Specimen Hemolyzed. Result may not be valid. Unable to report test result due to hemolysis. 6 Unable to report test result due to hemolysis. 7 Acute inflammation: >10.00 8 <5.0 Negative 5.0 - 25.0 Indeterminate (Repeat testing recommended after 72 hours) >25.0 Positive Perimenopausal women can display HCG levels of up to 20 mIU/mL 9 <5.0 Negative 5.0 - 25.0 Indeterminate (Repeat testing recommended after 72 hours) >25.0 Positive Perimenopausal women can display HCG levels of up to 20 mIU/mL 10 Because ethnic data is not always readily available, this report includes an eGFR for both -Americans and non- Americans. The National Kidney Disease Education Program (NKDEP) does not endorse the use of the MDRD equation for patients that are not between the ages of 18 and 70, are , have extremes of body size, muscle mass, or nutritional status, or are non- or non-. According to the National Kidney Foundation, irrespective of diagnosis, the stage of the disease is based on the level of kidney function: Stage Description GFR(mL/min/1.73 m(2)) 1 Kidney damage with normal or decreased GFR 90 2 Kidney damage with mild decrease in GFR 60-89 3 Moderate decrease in GFR 30-59 4 Severe decrease in GFR 15-29 5 Kidney failure <15 (or dialysis) 11 [facility] Severe Sepsis and Septic Shock Management Bundle Measure requires all lactic acids initially measuring >2.0 mmol/L be repeated. 12 Because ethnic data is not always readily available, this report includes an eGFR for both -Americans and non- Americans. The National Kidney Disease Education Program (NKDEP) does not endorse the use of the MDRD equation for patients that are not between the ages of 18 and 70, are , have extremes of body size, muscle mass, or nutritional status, or are non- or non-. According to the National Kidney Foundation, irrespective of diagnosis, the stage of the disease is based on the level of kidney function: Stage Description GFR(mL/min/1.73 m(2)) 1 Kidney damage with normal or decreased GFR 90 2 Kidney damage with mild decrease in GFR 60-89 3 Moderate decrease in GFR 30-59 4 Severe decrease in GFR 15-29 5 Kidney failure <15 (or dialysis) 13 <5.0 Negative 5.0 - 25.0 Indeterminate (Repeat testing recommended after 72 hours) >25.0 Positive Perimenopausal women can display HCG levels of up to 20 mIU/mL 14 Acute inflammation: >10.00 15 SEE RESULT BELOW Name: CHERELLE ALANIZ : [address]: Román Neil MD Acct: [id number] Unit: [id number] AGE: 36 Location: ED Re01/23/17 SEX: F Status: DEP ER SPEC: [id number] [place]: 01/23/17-0543 [facility] DR: Vamshi Tompkins MD REQ: [id number] RECD: 01/23/17 STATUS: FOUZIA HAINES DR: Sumi Yan MD _ SOURCE: URINE [facility]: ORDERED: Urine Culture Procedure Result Reported Site Urine Culture Final 01/24/17- 0851 ML No growth of clinically significant organisms * ML - MAIN LAB ([facility]) . END OF REPORT * ML=Testing performed at Main Lab DEPARTMENT OF PATHOLOGY, [address] [place] [address] Rex Boateng M.D. Director [facility] # [id number] Procedures Description No Information Encounters Type Date Location Provider CPT E/M Dx Office Visit 07/17/2017 9:30a [facility] Office Kailash Haddad, [address]47[address] J20.8 Office Visit 05/16/2017 2:00p [facility] Office Sumi Yan, 30842 Z00.00 M.D. E03.9 Z95.2 G89.4 R51 Z23 Office Visit 03/28/2017 1:20p [facility] Sumi Yan M.D. 02244 R51 Z13.220 Office Visit 02/05/2017 10:00a [facility] Office Sumi Yan M.D. 25072 E03.9 K21.9 Z95.2 G89.4 K42.9 K81.1 Plan of Care 08/18/2017 - Kailash Haddad MDN85.00 Endometrial hyperplasia, unspecifiedNew Medication:Progesterone Micronized 100 mgH66.93 Otitis media, unspecified, bilateralNew Medication:Amoxicillin 875 mgR51 HeadacheNew Medication:Hydrocodone Bitartrate/Acetaminophen 5-300 mg
[2017-08-28] MEDS ORDERED: NS 0.9% 1000 ML* 1,000 ML IV ONE (09:14)
[2017-08-28] MEDS ORDERED: HYDROmorphone INJ* 2 MG/ML CARPUJECT SYRINGE IV SLOW PU ONE ×2 (09:14→12:26)
[2017-08-28] MEDS ORDERED: Ondansetron INJ* 2 MG/ML VIAL IV ONE (09:15)
[2017-08-28 09:33] LABS: ABS Basophils 0.1 10^3/ul (0-0.2); ABS Eosinophils 0.1 10^3/ul (0-0.6); ABS Lymphocytes 2.2 10^3/ul (1.0-4.8); ABS Monocytes 0.4 10^3/ul (0-0.8); ABS Neutrophils 7.7 10^3/ul (1.5-7.7); ABS Nucleated RBC 0 10^3/ul; Hematocrit 38 % (35-47); Hemoglobin 12.4 g/dl (12.0-16.0); Lymphocyte % 21.1 % (25-47); Mean Corpuscular HGB Conc 33 g/dl (31-36); Mean Corpuscular Hemoglobin 27 pg (27-31); Mean Corpuscular Volume 81 fL (80-97); Mean Platelet Volume 8 um3 (7.4-10.4); Nucleated Red Blood Cells % 0.1; Platelet Count 325 10^3/ul (150-450); Red Blood Count 4.68 10^6/ul (4.0-5.4); Red Cell Distribution Width 17 % (10.5-15); White Blood Count 10.5 10^3/ul (3.5-10.8)
[2017-08-28 09:49] LABS: EGFR Non-African American 89.7 (>60)
[2017-08-28 10:00] LABS: INR 3.83 (0.77-1.02)
--- NOTE | 2017-08-28 10:11 | ED ---
GI/ HPI - HPI Summary HPI Summary: 37-year-old female presents with abdominal pain for the past month. She states the pain is due to the ovarian cyst for the past month. She states since yesterday the pain is increased. She states pain was just in her left lower quadrant but now is more generalized. She states she has this pain with her ovarian cysts. She states last time she had this pain she had a hematoma peritoneum and ovarian torsion in Feb. She has no right ovary due to this so required surgery last time. She admits to some nausea. She denies any vomiting. She admits diarrhea. She states she was placed on progesterone for 10 days to induce a period since her last ultrasound in June showed a thickened endometrium. She has not had a period. She denies a vaginal discharge. She denies any pain with urination. She denies any flank pain. She denies any hematuria. Doctor Dobbs is her CUSTOMER SUPPORT SPECIALIST. She has not been able to see him. She states every time she has an ovarian cyst she has had surgery. She is on warfarin for mechanical heart valve. She took hydrocodone without relief. - History of Current Complaint Chief Complaint: EDAbdPain Time Seen by Provider: 08/28/17 09:12 Stated Complaint: ABD PAIN Hx Last Menstrual Period: December 2015 endometrial ablation Pain Intensity: 10 - Additional Pertinent History Primary Care Physician: [id number] - Allergy/Home Medications Allergies/Adverse Reactions: Allergies Allergy/AdvReac Type Severity Reaction Status Date / Time MS Bee Venom [Bee Venom] Allergy Severe Rash Verified 08/28/17 08:28 MS Dextrose [Dextrose] Allergy Pain Verified 08/28/17 08:28 MS Morphine [Morphine] Allergy Hives Verified 08/28/17 08:28 PMH/Surg Hx/FS Hx/Imm Hx Endocrine/Hematology History: Reports: Hx Anticoagulant Therapy - coumadin, Hx Anemia - TAKES IRON Denies: Hx Diabetes, Hx Thyroid Disease Cardiovascular History: Reports: Hx Congenital Heart Disease, Hx Hypertension, Hx Valvular Heart Disease - mechanical heart valve Denies: Hx Pacemaker/ICD Respiratory History: Reports: Hx Asthma - exercise induced when younger Denies: Hx Chronic Obstructive Pulmonary Disease (COPD), Hx Sleep Apnea GI History: Denies: Hx Gastroesophageal Reflux Disease, Hx Jaundice, Hx Ulcer History: Reports: Other Problems/Disorders - Rt oophorectomy d/t ruptured hemorrhagic cyst Denies: Hx Dialysis, Hx Renal Disease Musculoskeletal History: Reports: Hx Tendonitis - LEFT SHOULDER Sensory History: Reports: Hx Contacts or Glasses - GLASSES Denies: Hx Hearing Aid Opthamlomology History: Reports: Hx Contacts or Glasses - GLASSES Neurological History: Denies: Hx Headaches, Hx Migraine, Hx Nerve Disease, Hx Seizures Psychiatric History: Denies: Hx Anxiety, Hx Depression, Hx Panic Disorder - Surgical History Surgery Procedure, Year, and Place: t&a. 2002, 2007. tubal ligation , LAPROSCOPY 2004. Endometrial ablation 2016. 05/29/16 Mechanical heart valve replacement Hx Anesthesia Reactions: No Infectious Disease History: No Infectious Disease History: Denies: Hx Hepatitis, Hx Human Immunodeficiency Virus (HIV), Traveled Outside the [place] in Last 30 Days - Family History Known Family History: Positive: Hypertension, Other - Migraines Family History: FHx of cholecystitis - Social History Alcohol Use: Rare Alcohol Amount: SPECIAL OCCASIONS ONLY Hx Substance Use: No Substance Use Type: Reports: None Substance Use Comment - Amount & Last Used: occasional/last used few months ago Hx Tobacco Use: Yes - not currently Smoking Status (MU): Former Smoker Review of Systems Negative: Fever Negative: Chest Pain Negative: Shortness Of Breath Positive: Abdominal Pain, Nausea. Negative: Vomiting, Diarrhea All Other Systems Reviewed And Are Negative: Yes Physical Exam Triage Information Reviewed: Yes Vital Signs On Initial Exam: Initial Vitals Temp Pulse Resp BP Pulse Ox 97.8 F 82 18 132/85 99 08/28/17 08:28 08/28/17 08:28 08/28/17 08:28 08/28/17 08:28 08/28/17 08:28 Vital Signs Reviewed: Yes Appearance: Positive: Pain Distress Skin: Positive: Warm, Dry Head/Face: Positive: Normal Head/Face Inspection Eyes: Positive: Normal, Conjunctiva Clear Respiratory/Lung Sounds: Positive: Clear to Auscultation, Breath Sounds Present Cardiovascular: Positive: Normal, RRR Abdomen Description: Positive: Soft, Other: - Tenderness greatest in left lower quadrant but is diffusely tender, has rebound tenderness Bowel Sounds: Positive: Present Musculoskeletal: Positive: Normal Neurological: Positive: Normal Psychiatric: Positive: Normal Diagnostics - Vital Signs Vital Signs Temp Pulse Resp BP Pulse Ox 08/28/17 08:42 97.8 F 73 18 138/87 98 08/28/17 08:28 97.8 F 82 18 132/85 99 - Laboratory Lab Results: Lab Results 08/28/17 08/28/17 08/28/17 Range/Units 09:24 09:24 09:24 WBC 10.5 (3.5-10.8) 10^3/ul RBC 4.68 (4.0-5.4) 10^6/ul Hgb 12.4 (12.0-16.0) g/dl Hct 38 (35-47) % MCV 81 (80-97) fL MCH 27 (27-31) pg MCHC 33 (31-36) g/dl RDW 17 H (10.5-15) % Plt Count 325 (150-450) 10^3/ul MPV 8 (7.4-10.4) um3 Neut % (Auto) 73.4 (38-83) % Lymph % (Auto) 21.1 L (25-47) % Moca % (Auto) 4.0 (1-9) % Eos % (Auto) 1.0 (0-6) % Baso % (Auto) 0.5 (0-2) % Absolute Neuts (auto) 7.7 (1.5-7.7) 10^3/ul Absolute Lymphs (auto) 2.2 (1.0-4.8) 10^3/ul Absolute Monos (auto) 0.4 (0-0.8) 10^3/ul Absolute Eos (auto) 0.1 (0-0.6) 10^3/ul Absolute Basos (auto) 0.1 (0-0.2) 10^3/ul Absolute Nucleated RBC 0 10^3/ul Nucleated RBC % 0.1 INR (Anticoag Therapy) 3.83 H (0.77-1.02) APTT 53.6 H (26.0-36.3) seconds Sodium 136 (133-145) mmol/L Potassium 3.9 (3.5-5.0) mmol/L Chloride 105 (101-111) mmol/L Carbon Dioxide 25 (22-32) mmol/L Anion Gap 6 (2-11) mmol/L BUN 8 (6-24) mg/dL Creatinine 0.73 (0.51-0.95) mg/dL Est GFR ( Amer) 115.4 (>60) Est GFR (Non-Af Amer) 89.7 (>60) BUN/Creatinine Ratio 11.0 (8-20) Glucose 90 (70-100) mg/dL Calcium 9.5 (8.6-10.3) mg/dL Total Bilirubin 0.40 (0.2-1.0) mg/dL AST 15 (13-39) U/L ALT 11 (7-52) U/L Alkaline Phosphatase 63 (34-104) U/L C-React Prot High Sens 5.07 mg/L Total Protein 7.4 (6.4-8.9) g/dL Albumin 4.4 (3.2-5.2) g/dL Globulin 3.0 (2-4) g/dL Albumin/Globulin Ratio 1.5 (1-3) Lipase 34 (11.0-82.0) U/L Beta HCG, Quant < 0.60 mIU/mL Result Diagrams: 08/28/17 09:24 08/28/17 09:24 Lab Statement: Any lab studies that have been ordered have been reviewed, and results considered in the medical decision making process. - Ultrasound No standard instances Ultrasound Interpretation: Positive (See Comments) - IMPRESSION: 1. Myomatous changes of the uterus with cystic spaces which may represent cystic degeneration of fibroids. 2. Status post right oophorectomy. 3. Hemorrhagic cyst in the left ovary measuring up to 4.3 cm. Ultrasound Interpretation Completed By: Radiologist Re-Evaluation - Re-Evaluation First Eval Re-Evaluation Time: 11:55 Change: Improved Comment: pain still present, patient states will not leave unless talk to dr dobbs. JOE Course/Dx - Course Course Of Treatment: 37-year-old female presents with abdominal pain for the past month. She states her past couple days the pain is increased. She states pain was just in her left lower quadrant but now is more generalized. She states she has this pain with her ovarian cysts. She states last time she had this pain she had a hematoma peritoneum and ovarian torsion in Feb. She has no right ovary due to this so required surgery last time. She admits to some nausea. She denies any vomiting. She admits diarrhea. She states she was placed on progesterone for 10 days to induce a period since her last ultrasound in June showed a thickened endometrium. She has not had a period. She denies a vaginal discharge. She denies any pain with urination. She denies any flank pain. She denies any hematuria. Doctor Dilia is her OB. She has not been able to see him. She states every time she has an ovarian cyst she has had surgery. She is on warfarin for mechanical heart valve. On exam has diffuse tenderness with greatest in left lower quadrant. has rebound tenderness. Labs within normal limits except INR elevated at 3.8. urine neg. u/ s shows hemorrhagic cyst in left ovary 4.3cm. myomatous change of uterus with cystic spaces may represent cystic degeneration of fibriods. spoke with ramses states to get pain under control and unlikely to need to go to the OR. will sign out to Jes pending pain control. - Diagnoses Differential Diagnoses - Female: Ovarian Cyst, Ovarian Torsion, Urinary Tract Infection Provider Diagnoses: Abdominal pain, Ovarian cyst Discharge - Discharge Plan Condition: Stable Disposition: OTHER Discharge Disposition Comment: signed out to jes pending pain control Referrals: Sumi Yan MD [Primary Care Provider] -
[2017-08-28 10:42] LABS: Urine Appearance Clear; Urine Blood Negative (Negative); Urine Color Yellow; Urine Ketones Trace (Negative); Urine Protein Negative (Negative); Urine Urobilinogen Negative (Negative)
--- NOTE | 2017-08-28 11:17 | RAD ---
Indication: Pelvic pain. Real-time sonography of the pelvis was performed. The uterus measures 8.4 x 3.9 x 4.1 cm. Endometrial echo measures 7.4 mm. Heterogeneous echotexture of the uterus is noted. There are several cystic areas in the uterus predominantly in the posterior body which may represent degenerating fibroids rather than endometriomas. The endometrial echo measures 7.4 mm. The right ovary has been removed. The left ovary measures 5.6 x 4.9 x 5.2 cm with heterogeneous hypoechoic lesion in the left ovary measuring 4.3 x 3.7 x 3.4 cm. This likely represents a hemorrhagic cyst. Trace amount of free fluid in the cul-de-sac. IMPRESSION: 1. Myomatous changes of the uterus with cystic spaces which may represent cystic degeneration of fibroids. 2. Status post right oophorectomy. 3. Hemorrhagic cyst in the left ovary measuring up to 4.3 cm.
[2017-08-28] MEDS ORDERED: Ketorolac INJ* 30 MG/ML 1 ML VIAL IV PUSH ONE (14:33)
[2017-08-28] MEDS ORDERED: Iohexol 300* (CONTRAST) 10 ML SDV IV ONE (16:43)
--- NOTE | 2017-08-28 17:03 | RAD ---
INDICATION: Diffuse abdominal pain. COMPARISON: Comparison is made with prior CTs of the abdomen and pelvis from March 07, 2017 and July 07, 2017. TECHNIQUE: A CT scan of the abdomen and pelvis was performed with intravenous and oral contrast following intravenous injection of 121 ml of Omnipaque 300 nonionic contrast. Contiguous axial sections were obtained from the lung bases through the symphysis pubis. Images were reconstructed in the coronal and sagittal planes. FINDINGS: The lung bases are clear. No pleural effusion is present. The liver and spleen are normal in size without significant focal abnormality. There are several accessory spleens. The liver is decreased in attenuation consistent with fatty infiltration. No calcified gallstones are seen. The pancreas appears to be within normal limits. The kidneys and adrenal glands are normal in size. No hydronephrosis is seen. No significant focal renal abnormality is seen. The aorta is normal in caliber and demonstrates homogeneous contrast opacification. No significant enlarged retroperitoneal lymph nodes are seen. The stomach, small and large bowel appear nondistended. The appendix is within normal limits. There is mild to moderate descending and sigmoid diverticulosis without evidence for diverticulitis or colitis. The uterus is anteverted and normal in size. There are 2 cysts in the left adnexal region. The larger cyst measures up to 4.2 cm in size and may be slightly complex. There is a small amount of free intraperitoneal fluid in the cul-de-sac. No free intraperitoneal air is seen. There is a small periumbilical hernia containing fat. No significant focal osseous abnormality is seen. IMPRESSION: 1. ENLARGED LEFT OVARIAN CYST POSSIBLY COMPLEX. RECOMMEND A FOLLOW-UP PELVIC ULTRASOUND FOR FURTHER EVALUATION. 2. SMALL AMOUNT OF FREE INTRAPERITONEAL FLUID. 3. HEPATIC STEATOSIS.
--- NOTE | 2017-08-28 19:00 | PN ---
Progress Note - Progress Note Date of Service: 08/28/17 Note: Signed out by JS Barksdale at 11 AM. HPI: 37-year-old female presents with abdominal pain for the past month. She states the pain is due to the ovarian cyst for the past month. She states since yesterday the pain is increased. She states pain was just in her left lower quadrant but now is more generalized. She states she has this pain with her ovarian cysts. She states last time she had this pain she had a hematoma peritoneum and ovarian torsion in Feb. She has no right ovary due to this so required surgery last time. She admits to some nausea. She denies any vomiting. She admits diarrhea. She states she was placed on progesterone for 10 days to induce a period since her last ultrasound in June showed a thickened endometrium. She has not had a period. She denies a vaginal discharge. She denies any pain with urination. She denies any flank pain. She denies any hematuria. Doctor Dobbs is her MAID SUPERVISOR. She has not been able to see him. She states every time she has an ovarian cyst she has had surgery. She is on warfarin for mechanical heart valve. She took hydrocodone without relief. Upon sign out, awaiting admission to the hospital for pain control Dr. Groves, LEAD HANDLER paged for consult who agrees to come see patient Patient is adamant about not leaving until she sees Dr. Dobbs tomorrow CT abdomen and pelvis obtained to assess for any other diagnosis including ischemic bowel, hemorrhage in the abdomen or diverticulitis. Impression: Enlarged left ovarian cyst possibly complex. Recommend a follow-up pelvic ultrasound for further evaluation. Small amount of free peritoneal fluid. Hepatic steatosis. Pain appears to be out of proportion to CT and ultrasound findings, although this could also be social. At 6:30 PM, Dr. Groves to see patient who informs patient that she will not get surgery any sooner by staying overnight and seeing Dr. Dobbs tomorrow. Dr. Groves suggests some of this could be muscular. Her pain is under control at this time with IV Dilaudid 3 and later by mouth hydrocodone. She states she is okay for discharge due to not being able to have surgery tomorrow morning. She is given strict return precautions for any worsening pain. I have given her a prescription for hydrocodone for diffuse abdominal pain. Vital signs are stable and patient is discharged home with follow-up to Dr. Dobbs who is aware of patient's stay in the ED. Constitutional: The patient denies fever, MCKEON, sweats or chills. HEENT: Head: The patient denies headaches or dizziness. Eyes: The patient denies diplopia, blurry vision, eye pain, eye discharge, photophobia. Throat: The patient denies sore throats or hoarseness. Cardiovascular: The patient denies chest pain, palpitations, syncope, night cramps, or orthostasis. Respiratory: The patient denies cough, sputum production, hemoptysis, dyspnea, wheezing. Gastrointestinal: The patient denies odynophagia, dysphagia, hematemesis, melenemesis. Endorses diffuse abdominal pain worse to the left lower quadrant. Endorses diarrhea 2 weeks. Genitourinary: Patient denies dysuria, hematuria, or pyuria. Patient denies back pain. Denies vaginal discharge, vaginal bleeding. Denies other urinary symptoms. Endocrine: The patient denies polydipsia, polyuria, or polyphagia. Muscles: The patient denies myalgia, strain or weakness. Joints: The patient denies arthralgia and/or arthritis. Neurologic: The patient denies headache, loss of consciousness, or seizure. Dermatologic: The patient denies hyperpigmentation, rash, or photosensitivity. Appearance: WDW, comfortable, pleasant, alert Skin: Soft dry skin, no lesions. Nailbeds pink with no cyanosis or clubbing. No petechia noted. Eyes: ITALO, EOMI, Conjunctiva pink with no redness or exudates. Mouth: Dentition without lesions. Moist mucosa Neck: Full range of motion. Palpable thyroid. Trachea at midline. No lymphadenopathy. Pulm: Chest symmetrical expansion. No deformities on posterior chest wall. Lungs clear to auscultation and percussion, without adventitious sounds. CV: No JVD. No deformities on anterior chest wall. Heart sounds. RRR. Normal S1 and single S2. No S3, S4, rubs, or murmurs. Carotids 2+ bilaterally without bruits. . exam not performed GI: Bowel sounds WNL in all 4 quadrants. Pain on light palpation of all 4 quadrants. Hendricks's, obturator, psoas not performed due to patient's pain. Musculoskeletal: Flexion and extension of neck without limitations. ROM WNL in all extremities. No deformities noted. Pulses +2 bilaterally. Neuro: Motor strength is 5/5 in upper and lower extremities bilaterally. A&OX3 Psych: Logical, coherent
--- NOTE | 2017-08-28 19:03 | CONSULT ---
Consult Consult: HPI: pt presents with abdominal pain to the ED. She says the pain started suddenly in early june when she thinks she experienced a ruptured ovarian cyst but then it never improved and has been persistent ever since. She says her PCP started her on progesterone x10 because her endometrium was 8mm. She finished this yesterday but has had no bleeding. She had a uterine ablation in 2005. She says over the past 1-2 days her pain has become worse. She also says she has diarrhea 6 times today and has some nausea and difficulty eating. She denies abnormal discharge. She has not been having intercourse due to her pain. She describes the pain as primarily left sided but spreading to the middle and right side around her back and up to her rib cage. SHe says it feels hard and bloated. She sees Dr. Dobbs and last Feb she had an RSO for a ruptured hemorrhagic cyst. ROS: as above, otherwise negative PMH: mechanical heart valve due to aortic stenosis (congenital), asthma, depression/anxiety, hypertension PSH: open heart surgery, catheterization, mechanical valve placement, BTL, hysteroscopy, uterine ablation, Lap RSO Computer Systems Design Analyst Hx: . NVD x2. H/o ovarian cysts with hemorrhagic cyst as above. Soc Hx: lives with . Denies smoking, alcohol or illicit drug use Exam Gen: minimal painful distress Abd: minimal tenderness throughout abdomen but worse in the LLQ, LUQ, and midline. No rebound or guarding. Pt pushed freely on her own abdomen to show where the pain is. Pelvic: declined Sono: Left ovarian cyst hemorrhagic ~ 4cm, minimal free fluid, uterus with likely small degenerating fibroids - otherwise normal CT scan: As above Assessment/Plan: Pt with abd and pelvic pain that she is convinced are due to her ovarian cysts. She strongly desires hysterectomy and LSO. Once she understood there is no need for emergent surgery and therefore it will not happen during this hospital stay she preferred to go home with oral pain medication and f/u in the office. Will plan for appt with Dr. Dobbs in the next 2 weeks and she can discuss surgery at that time. I am highly suspicious that her pain is more likely related to GI issues or has a musculoskeletal component to it.
[2017-08-28 19:09] VITALS: BP 147/90
== END 2017-08-28 19:08 | disposition home or self-care (01) ==
LOC: ED 08:26
DX: R10.32 Left lower quadrant pain (principal); N83.202 Unspecified ovarian cyst, left side; K76.0 Fatty (change of) liver, not elsewhere classified
CPT/HCPCS: 36415; 74177; 76830; 80053; 81003; 83605; 83690; 84702; 85025; 85610; 85730; 86141; 96360; 96374; 96375; 96376; 99284; J1170; J1885; J2405; Q9967

== ENCOUNTER 2017-09-01 01:03 | Emergency (ER) | payer BC ==
[2017-09-01] MEDS ORDERED: NS 0.9% 1000 ML* 1,000 ML IV ONE (03:54)
[2017-09-01] MEDS ORDERED: Metoclopramide IV* 5 MG/ML 2 ML VIAL IV ONE (03:54)
[2017-09-01] MEDS ORDERED: HYDROmorphone INJ* 2 MG/ML CARPUJECT SYRINGE IV SLOW PU PRN (03:54)
[2017-09-01 04:24] LABS: ABS Basophils 0 10^3/ul (0-0.2); ABS Eosinophils 0.1 10^3/ul (0-0.6); ABS Lymphocytes 1.8 10^3/ul (1.0-4.8); ABS Monocytes 0.5 10^3/ul (0-0.8); ABS Neutrophils 7.6 10^3/ul (1.5-7.7); ABS Nucleated RBC 0 10^3/ul; Eosinophil % 0.8 % (0-6); Hematocrit 35 % (35-47); Hemoglobin 11.6 g/dl (12.0-16.0); Lymphocyte % 17.6 % (25-47); Mean Corpuscular HGB Conc 33 g/dl (31-36); Mean Corpuscular Hemoglobin 27 pg (27-31); Mean Corpuscular Volume 81 fL (80-97); Mean Platelet Volume 8 um3 (7.4-10.4); Nucleated Red Blood Cells % 0.1; Platelet Count 301 10^3/ul (150-450); Red Blood Count 4.29 10^6/ul (4.0-5.4); Red Cell Distribution Width 17 % (10.5-15)
[2017-09-01 04:25] LABS: Urine Appearance Cloudy; Urine Blood Negative (Negative); Urine Color Yellow; Urine Ketones Negative (Negative); Urine Protein Negative (Negative); Urine Specific Gravity 1.018 (1.010-1.030); Urine Urobilinogen Negative (Negative)
[2017-09-01 04:34] LABS: EGFR Non-African American 108.3 (>60)
[2017-09-01 04:38] LABS: INR 3.19 (0.77-1.02)
--- NOTE | 2017-09-01 06:46 | ED ---
Yoly Brown Edward, scribed for Dewey Chahal MD on 09/01/17 at 0241 . Abdominal Pain/Female - HPI Summary HPI Summary: 37 y/o female presents to the ED c/o severe, diffuse ABD pain starting 2 weeks ago, worsening in the past four days. The pt became severe two mornings ago. The pain is described as stabbing, pulling, burning. Pt was seen in the ED 3 nights ago for the same sx. Pt has taken hydrocodone w/o relief. PMHx endometriosis. Sx 2 years ago open heart surgery - mechanical aortic valve placed. Pt takes coumadin. Sx R ovarian removal Mar 07, 2017. PMHx endometrial ablasion. 2 weeks ago went to PCP for ovary pain and given progesterone for 10 days. - History of Current Complaint Chief Complaint: EDAbdPain Stated Complaint: ABD PAIN Time Seen by Provider: 09/01/17 02:30 Hx Obtained From: Patient Hx Last Menstrual Period: December 2015 endometrial ablation Onset/Duration: Lasting Weeks, Still Present Timing: Constant Severity Currently: Severe Pain Intensity: 10 Pain Scale Used: 0-10 Numeric Location: Diffuse Character: Burning, Other: - stabbing, pulling Aggravating Factor(s): Nothing Alleviating Factor(s): Nothing Allergies/Adverse Reactions: Allergies Allergy/AdvReac Type Severity Reaction Status Date / Time MS Bee Venom [Bee Venom] Allergy Severe Rash Verified 08/28/17 08:28 MS Dextrose [Dextrose] Allergy Pain Verified 08/28/17 08:28 MS Morphine [Morphine] Allergy Hives Verified 08/28/17 08:28 PMH/Surg Hx/FS Hx/Imm Hx Previously Healthy: No Endocrine/Hematology History: Reports: Hx Anticoagulant Therapy - coumadin, Hx Anemia - TAKES IRON Denies: Hx Diabetes, Hx Thyroid Disease Cardiovascular History: Reports: Hx Congenital Heart Disease, Hx Hypertension, Hx Valvular Heart Disease - mechanical heart valve Denies: Hx Pacemaker/ICD Respiratory History: Reports: Hx Asthma - exercise induced when younger Denies: Hx Chronic Obstructive Pulmonary Disease (COPD), Hx Sleep Apnea GI History: Denies: Hx Gastroesophageal Reflux Disease, Hx Jaundice, Hx Ulcer History: Reports: Other Problems/Disorders - Rt oophorectomy d/t ruptured hemorrhagic cyst Denies: Hx Dialysis, Hx Renal Disease Musculoskeletal History: Reports: Hx Tendonitis - LEFT SHOULDER Sensory History: Reports: Hx Contacts or Glasses - GLASSES Denies: Hx Hearing Aid Opthamlomology History: Reports: Hx Contacts or Glasses - GLASSES Neurological History: Denies: Hx Headaches, Hx Migraine, Hx Nerve Disease, Hx Seizures Psychiatric History: Denies: Hx Anxiety, Hx Depression, Hx Panic Disorder - Surgical History Surgery Procedure, Year, and Place: t&a. 2002, 2007. tubal ligation , LAPROSCOPY 2004. Endometrial ablation 2016. 05/29/16 Mechanical heart valve replacement. RT OVARY REMOVED 03/07/2017. HX OF 3 LAPOROSCOPIC SURGERIES Hx Anesthesia Reactions: No Infectious Disease History: No Infectious Disease History: Denies: Hx Hepatitis, Hx Human Immunodeficiency Virus (HIV), Traveled Outside the [place] in Last 30 Days - Family History Known Family History: Positive: Hypertension, Other - Migraines Family History: FHx of cholecystitis - Social History Alcohol Use: Rare Alcohol Amount: SPECIAL OCCASIONS ONLY Hx Substance Use: No Substance Use Type: Reports: None Substance Use Comment - Amount & Last Used: occasional/last used few months ago Hx Tobacco Use: Yes - not currently Smoking Status (MU): Former Smoker Review of Systems Constitutional: Negative Eyes: Negative ENT: Negative Cardiovascular: Negative Respiratory: Negative Positive: Abdominal Pain Genitourinary: Negative Musculoskeletal: Negative Skin: Negative Neurological: Negative Psychological: Normal All Other Systems Reviewed And Are Negative: Yes Physical Exam - Summary Physical Exam Summary: VITAL SIGNS: Reviewed. GENERAL: Patient is a well-developed and nourished female who is lying comfortable in the stretcher. Patient is not in any acute respiratory distress. HEAD AND FACE: No signs of trauma. No ecchymosis, hematomas or skull depressions. No sinus tenderness. EYES: PERRLA, EOMI x 2, No injected conjunctiva, no nystagmus. EARS: Hearing grossly intact. Ear canals and tympanic membranes are within normal limits. MOUTH: Oropharynx within normal limits. NECK: Supple, trachea is midline, no adenopathy, no JVD, no carotid bruit, no c- spine tenderness, neck with full ROM. CHEST: Symmetric, no tenderness at palpation LUNGS: Clear to auscultation bilaterally. No wheezing or crackles. CVS: Regular rate and rhythm, S1 and S2 present, no murmurs or gallops appreciated. ABDOMEN: Soft, diffusely tender. No signs of distention. No rebound no guarding , and no masses palpated. Bowel sounds are normal. EXTREMITIES: FROM in all major joints, no edema, no cyanosis or clubbing. NEURO: Alert and oriented x 3. No acute neurological deficits. Speech is normal and follows commands. SKIN: Dry and warm Triage Information Reviewed: Yes Vital Signs On Initial Exam: Initial Vitals Temp Pulse Resp BP Pulse Ox 98.4 F 73 22 119/74 100 09/01/17 01:16 09/01/17 01:16 09/01/17 01:16 09/01/17 01:16 09/01/17 01:16 Vital Signs Reviewed: Yes Diagnostics - Vital Signs Vital Signs Temp Pulse Resp BP Pulse Ox 09/01/17 01:16 98.4 F 73 22 119/74 100 - Laboratory Result Diagrams: 09/01/17 04:00 09/01/17 04:00 Lab Statement: Any lab studies that have been ordered have been reviewed, and results considered in the medical decision making process. - Ultrasound No standard instances Ultrasound Interpretation: Positive (See Comments) - 2 ovarian cysts measuring up to 4.1 cm without torsion. Small to moderate amount of pelvic free fluid could be due to partial cyst collapse. Ultrasound Interpretation Completed By: Radiologist - ED PHYSICIAN REVIEWS AND AGREES Abdominal Pain Fem Course/Dx - Course Course Of Treatment: 37 y/o female presents to the ED c/o severe, diffuse ABD pain starting 2 weeks ago, worsening in the past four days. PELVIS US SHOWS 2 ovarian cysts measuring up to 4.1 cm without torsion. Small to moderate amount of pelvic free fluid could be due to partial cyst collapse. Pt will be d/c home with f/u with Ob-flask pusher. - Diagnoses Provider Diagnoses: L side ovarian cyst Discharge - Discharge Plan Condition: Stable Disposition: HOME Prescriptions: oxyCODONE/Acetamin 5/325 MG* [Percocet 5/325 TAB*] 1 tab PO Q6H PRN #14 tab MDD 4 PRN Reason: Pain Patient Education Materials: Ovarian Cyst (ED) Referrals: Sumi Yan MD [Primary Care Provider] - Uzma Plaza MD [Medical Doctor] - 1 Day (PLEASE F/U IN 1-2 DAYS) Additional Instructions: PLEASE RETURN TO THE ED FOR THE RETURN OF OR WORSENING OF SYMPTOMS The documentation as recorded by the Yoly villarreal Edward accurately reflects the service I personally performed and the decisions made by me, Dewey Chahal MD.
[2017-09-01 06:57] VITALS: BP 124/76
--- NOTE | 2017-09-01 08:19 | RAD ---
INDICATION: Left pelvic pain. Relevant surgical history includes right sided oopherectomy. COMPARISON: Most recent comparison ultrasound dated August 28, 2017 TECHNIQUE: Real-time transabdominal only ultrasound examination of the female pelvis including grayscale and Doppler color flow imaging. FINDINGS: Uterus: The uterus is normal in size and echogenicity measuring 9.1 x 4.6 x 5.8 cm. Ovaries: The right ovary is surgically absent. The left ovary measures 6.6 x 4.7 x 7.1 cm. Within the left ovary there are 2 echogenic avascular structures. The larger one measures 4.2 x 4.1 x 3.3 cm. The smaller cystic structure measures 3.5 x 2.5 x 3.4 cm. Normal arterial and venous waveforms are identified. There is moderate amount of echogenic free fluid in the cul-de-sac. IMPRESSION: 1. There are avascular and echogenic cystic structures in the left ovary that are likely hemorrhagic/involuting follicles. A similar finding but with just one cystic structure was seen on the previous ultrasound. 2. There is a moderate amount of echogenic free fluid in the pelvis.
== END 2017-09-01 06:54 | disposition home or self-care (01) ==
LOC: ED 01:03
DX: R10.9 Unspecified abdominal pain (principal); N83.202 Unspecified ovarian cyst, left side; Z79.01 Long term (current) use of anticoagulants; Z87.891 Personal history of nicotine dependence
CPT/HCPCS: 36415; 76856; 80053; 81003; 83605; 83690; 85025; 85610; 85730; 86850; 86900; 86901; 86922; 86927; 96374; 96375; 99284; J1170; J2765; P9017; P9040

== ENCOUNTER 2017-09-01 16:53 | Inpatient (IN) | payer BC ==
[2017-09-01] MEDS ORDERED: HYDROmorphone PCA* 20 MG/20 ML PCA.SYRING PCA SCH (18:00)
[2017-09-01 21:23] LABS: ABS Basophils 0 10^3/ul (0-0.2); ABS Eosinophils 0 10^3/ul (0-0.6); ABS Lymphocytes 1.4 10^3/ul (1.0-4.8); ABS Monocytes 0.4 10^3/ul (0-0.8); ABS Neutrophils 9.7 10^3/ul (1.5-7.7); ABS Nucleated RBC 0 10^3/ul; Eosinophil % 0.1 % (0-6); Hematocrit 26 % (35-47); Hemoglobin 8.6 g/dl (12.0-16.0); Lymphocyte % 11.7 % (25-47); Mean Corpuscular HGB Conc 33 g/dl (31-36); Mean Corpuscular Hemoglobin 27 pg (27-31); Mean Corpuscular Volume 81 fL (80-97); Mean Platelet Volume 8 um3 (7.4-10.4); Nucleated Red Blood Cells % 0; Platelet Count 266 10^3/ul (150-450); Red Blood Count 3.21 10^6/ul (4.0-5.4); Red Cell Distribution Width 17 % (10.5-15); White Blood Count 11.6 10^3/ul (3.5-10.8)
[2017-09-01 21:29] LABS: INR 3.71 (0.77-1.02)
--- NOTE | 2017-09-01 23:26 | CONSULT ---
Consult Consult: HOSPITALIST CONSULT: Date of consult: 09/01/17 Requesting Provider: Dr. Dobbs Reason for Consultation: Mechanical aortic valve and need for urgent surgery HPI: Ms Bailey is a 37 yo F who has a h/o hemorrhagic ovarian cysts who presented to the ER with c/o abdominal pain. She underwent pelvic US that showed a likely hemorrhagic ovarian cyst. It was felt this was possibly the source of her pain. Dr. Dobbs admitted the patient for pain control. H/H obtained this evening showed a significant drop in her Hb from 11.[address] Dobbs then contacted me to do a consulation on the patient given her history of a mechanical aortic valve. The patient has been on coumadin since the time of her valve replacement surgery in 05/2015. She states a few weeks ago her INR was ~1 and her coumadin dose was adjusted. Her last check prior to being admitted her INR was ~3.8. She last took her coumadin on the evening of 08/31/17. We discussed Dr. Dobbs's concerns of her decreased H/H and need for relatively urgent surgery. We discussed using FFP to decrease her INR and then resuming lovenox as soon as ok'ed post-op. The patient wishes to proceed with reversing her INR. As she continues to have severe abdominal pain and near syncope when trying to move due to pain she is hopeful the surgery will help her symptoms. PMHx: mechanical AVR for bicuspid aortic valve, asthma, HTN PSHx: AVR, R ovary removal 2017, endometrial ablation, tubal ligation, C- section x2, tonsillectomy All: bees, morphine Meds: Current medications reviewed FamHx: dad has a h/o MS SocHx: No tobacco, EtOH ROS: as per HPI PE: 127/56 77 16 98.4 100% on RA gen: young female lying in bed, NAD HEENT: pupils are round, EOMI, oropharynx clear, oral mucosa moist, no adenopathy noted Card: nl S1S2 RRR, no edema Lungs: CTA anteriorly Abd: BS+ soft, ND, diffusely tender to palpation, worse in LLQ Musculoskeletal: no joint deformities Skin: no rashes Neuro: nl motor/sensory exam Psych: A&Ox3 Labs: INR 3.71 Hb 8.6 A/P: Ms Bailey is a 37 yo F who has a h/o a mechanical aortic valve who has been maintained on coumadin and now presents with severe abdominal pain and concerns for a hemorrhagic ovarian cyst with acute blood loss anemia. 1. L hemorrhagic ovarian cyst rupture with likely hemoperitoneum: plan is for the patient to go urgently to the OR for ovary removal with Dr. Dobbs. Given her elevated INR she will need to be reversed. Based on her weight and INR level will administer 4units FFP with a recheck of her INR ~1hr after. I suspect it will be at least 7-8 hr to transfuse and receive the repeat INR. Will inform Dr. Dobbs of results of repeat INR. Will also repeat the H/H with the INR draw to evaluate for further reduction in her H/H from the acute blood loss. I discussed with the patient that we are acutely reversing her INR and she will be a period of time without anticoagulation making thrombosis of her valve possible. She will inform nursing if she has any chest pain, palpitations or shortness of breath. She should be started back on lovenox 1mg/kg SQ BID as soon as possible post-op and be bridged back to a therapeutic INR. 2. HTN: BP is currently under good control not on any medications. Follow the BP. 3. Will sign off once INR in acceptable range to proceed to OR-for now will follow while following INR and dosing FFP.
--- NOTE | 2017-09-01 23:30 | PN ---
Progress Note - Progress Note Date of Service: 09/01/17 Note: Pt received midline for IV access and lab draws. Hct returned 26, down from 35 at 0400 today. Strongly suspect hemoperitoneum considering her severe diffuse abdominal pain. Likely from bleeding left ovarian cyst that has ruptured. Considering this is the second such event in only 6 months, it is probably best to remove the left ovary as well. Pt will be on lifelong warfarin, so this will likely continue to be a problem. I discussed this with the pt and she agrees. Since INR is 3.7, we need to decrease it before surgery. I have contacted Dr. Oviedo who will evaluate pt for FFP. We will likely plan for L/S LSO once FFP has improved, with lovenox after surgery.
[2017-09-02] MEDS ORDERED: Ondansetron ODT TAB* 4 MG PO PRN (08:06)
[2017-09-02] MEDS ORDERED: Ondansetron INJ* 2 MG/ML VIAL IV PRN (08:37)
[2017-09-02] MEDS ORDERED: HYDROmorphone PCA* 20 MG/20 ML PCA.SYRING PCA SCH (08:39)
--- NOTE | 2017-09-02 08:41 | PN ---
Subjective Date of Service: 09/02/17 Interval History: dry heaving. pain not controlled but only got 1.6mg dilaudid via train master s/p 3 FFP, about to get last. Objective Active Medications: Heparin Sodium (Porcine) (Heparin Flush Picc/Ml/Cvc(*)) 1 ml FLUSH 0600,1800 SIMA PRN Reason: Protocol Last Admin: 09/02/17 05:50 Dose: Not Given Lactated Ringer's (Lactated Ringers 1000 Ml Bag*) 1,000 mls @ 125 mls/hr IV PER RATE SIMA Hydromorphone HCl (Dilaudid Agency Legal Counsel*) 20 mg in 20 mls @ 0 mls/hr FURNITURE AND BEDDING INSPECTOR .change Q24H SIMA; Per Protocol PRN Reason: Protocol Ondansetron HCl (Zofran Odt Tab*) 4 mg PO Q6H PRN PRN Reason: NAUSEA Last Admin: 09/02/17 08:21 Dose: 4 mg Ondansetron HCl (Zofran Inj*) 4 mg IV Q4H PRN PRN Reason: NAUSEA Vital Signs - 8 hr 09/02/17 09/02/17 09/02/17 00:50 02:40 03:21 Temperature 98.0 F 98 F Pulse Rate 94 87 Respiratory 16 16 16 Rate Blood Pressure 125/62 108/54 (mmHg) O2 Sat by Pulse 98 99 98 Oximetry 09/02/17 09/02/17 05:00 06:52 Temperature Pulse Rate 96 Respiratory 16 16 Rate Blood Pressure (mmHg) O2 Sat by Pulse 98 98 Oximetry Oxygen Devices in Use Now: None Appearance: acute distress 2/2 abdominal pain. Eyes: No Scleral Icterus, PERRLA Respiratory: - - antetriorly CTAB, no wheezing. Abdominal: - - diffuse tenderness, soft Extremities: No Edema, No Clubbing, Cyanosis Skin: No Rash or Ulcers, No Nodules or Sclerosis Neurological: Alert and Oriented x 3, NL Sensation, NL Muscle Strength and Tone Result Diagrams: 09/01/17 21:10 Additional Lab and Data: Laboratory Results - last 24 hr 09/01/17 09/01/17 21:10 21:10 WBC 11.6 H RBC 3.21 L Hgb 8.6 L Hct 26 L MCV 81 MCH 27 MCHC 33 RDW 17 H Plt Count 266 MPV 8 Neut % (Auto) 84.4 H Lymph % (Auto) 11.7 L Wood % (Auto) 3.7 Eos % (Auto) 0.1 Baso % (Auto) 0.1 Absolute Neuts (auto) 9.7 H Absolute Lymphs (auto) 1.4 Absolute Monos (auto) 0.4 Absolute Eos (auto) 0 Absolute Basos (auto) 0 Absolute Nucleated RBC 0 Nucleated RBC % 0 INR (Anticoag Therapy) 3.71 H Assess/Plan/Problems-Billing Assessment: 37 yo female PMH bicuspid aortic valve s/p mechanical replacement on coumadin ( INR goal 2.5-3.5 per her computer hardware designer), endometriosis, asthma, htn, s/p right ovary removal 2016, p/w abdominal pain, acute blood loss anemia thought 2/2 ruptured left ovarian cyst. getting FFP to reverse INR prior to emergent surgery with Dr. Dobbs. on train master. - Patient Problems (1) H/O mechanical aortic valve replacement Current Visit: Yes Status: Acute Code(s): Z98.890 - OTHER SPECIFIED POSTPROCEDURAL STATES; Z95.2 - PRESENCE OF PROSTHETIC HEART VALVE SNOMED Code( s): 138360580 Comment: goal INR 2.5-3.5 usually. now getting reversed with FFP. intrinsic INR of FFP is 1.6 so only time would get lower than that. likely surgery this afternoon with Dr. Dobbs then lovenox bridging back to coumadin. (2) Abdominal pain Current Visit: No Status: Acute Priority: High Code(s): R10.9 - UNSPECIFIED ABDOMINAL PAIN SNOMED Code(s): 92824735 Comment: 2/2 left ovarain hemorraghic cyst. on train master but only got 1.6mg overnight and in extreme pain. added a basal 0.5mg/hr, increased bolus from 0.1 to 0.2. kept same 5mg lockout, please call if exceeds. put on telemetry. add zofran for nausea. (3) Hemoperitoneum Current Visit: No Status: Acute Code(s): K66.1 - HEMOPERITONEUM SNOMED Code(s): 341403170 Comment: plan as above. (4) Ruptured ovarian cyst Current Visit: No Status: Acute Comment: plan as above. (5) Acute urinary retention Current Visit: Yes Status: Acute Code(s): R33.8 - OTHER RETENTION OF URINE SNOMED Code(s): 840740216 Comment: [address] on [address] scan. [address]ing martin as about to get surgery anyway. (6) Acute blood loss anemia Current Visit: Yes Status: Acute Code(s): D62 - ACUTE POSTHEMORRHAGIC ANEMIA SNOMED Code(s): 481940571 Comment: repeat CBC. 2/2 hemorraghic cyst rupture. transfuse prn (7) HTN (hypertension) Current Visit: No Status: Acute Priority: High Code(s): I10 - ESSENTIAL ( PRIMARY) HYPERTENSION SNOMED Code(s): 35380589 Comment: no listed home medications Status and Disposition: medicine consult. ob-manager [employer] is primary. inpatient. Attending: Mj Toledo
[2017-09-02 11:18] LABS: ABS Basophils 0 10^3/ul (0-0.2); ABS Eosinophils 0 10^3/ul (0-0.6); ABS Lymphocytes 0.8 10^3/ul (1.0-4.8); ABS Monocytes 0.4 10^3/ul (0-0.8); ABS Neutrophils 8.3 10^3/ul (1.5-7.7); ABS Nucleated RBC 0 10^3/ul; Eosinophil % 0 % (0-6); Hematocrit 14 % (35-47); Lymphocyte % 7.9 % (25-47); Mean Corpuscular HGB Conc 34 g/dl (31-36); Mean Corpuscular Hemoglobin 28 pg (27-31); Mean Corpuscular Volume 81 fL (80-97); Mean Platelet Volume 8 um3 (7.4-10.4); Nucleated Red Blood Cells % 0; Platelet Count 207 10^3/ul (150-450); Red Blood Count 1.79 10^6/ul (4.0-5.4); Red Cell Distribution Width 16 % (10.5-15); White Blood Count 9.5 10^3/ul (3.5-10.8)
[2017-09-02 11:35] LABS: EGFR Non-African American 132.7 (>60)
[2017-09-02] MEDS ORDERED: Etomidate* 2 MG/ML 10 ML VIAL ONE (12:16)
[2017-09-02] MEDS ORDERED: Lidocaine 2% PF * 5 ML VIAL ONE (12:16)
[2017-09-02] MEDS ORDERED: KETAMINE HCL* 50 MG/ML 10 ML VIAL ONE (12:16)
[2017-09-02] MEDS ORDERED: Bupivacaine 0.25% SDV* 30 ML ONE (12:26)
[2017-09-02] MEDS ORDERED: Sodium Citrate/Citric Acid* 15 ML UDC ONE (12:29)
[2017-09-02 12:40] LABS: INR 1.77 (0.77-1.02)
[2017-09-02] MEDS ORDERED: fentaNYL* 50 MCG/ML 2 ML VIAL (100 MCG VIAL) ONE ×3 (12:50→14:27)
[2017-09-02] MEDS ORDERED: D5W IVPB ONE ×2 (12:52)
[2017-09-02] MEDS ORDERED: CEFOXITIN IVPB ONE ×2 (12:52)
[2017-09-02] MEDS ORDERED: ceFOXitin 2 GM IVPREMIX* 2 GM/50 ML BAG ONE (12:54)
[2017-09-02] MEDS ORDERED: EPHEDrine (Pressors)* 50 MG/ML VIAL ONE (13:05)
[2017-09-02] MEDS ORDERED: Rocuronium* 10 MG/ML VIAL ONE (13:05)
[2017-09-02] MEDS ORDERED: Ondansetron INJ* 2 MG/ML VIAL ONE (14:28)
[2017-09-02] MEDS ORDERED: DiMENhydriNATE IV* 50 MG/ML VIAL IV PUSH PRN (14:50)
[2017-09-02] MEDS ORDERED: Naloxone* 0.4 MG/ML 1 ML VIAL IV PRN (14:50)
[2017-09-02] MEDS ORDERED: PROCHLORPERAZINE INJ 5 MG/ML 2 ML VIAL IV PRN (14:50)
[2017-09-02] MEDS ORDERED: Morphine INJ* 2 MG/ML 1 ML CARPUJECT IV PRN (14:50)
[2017-09-02] MEDS ORDERED: fentaNYL* 50 MCG/ML 2 ML VIAL (100 MCG VIAL) IV PRN (14:50)
[2017-09-02] MEDS ORDERED: oxyCODONE/Acetamin 5/325 MG* TAB PO PRN (14:50)
[2017-09-02] MEDS ORDERED: Acetaminophen IV 1GM/100ML * 1,000 MG/100 ML VIAL IVPB ONE (18:10)
[2017-09-02 18:19] LABS: Hematocrit 23 % (35-47); Hemoglobin 7.6 g/dl (12.0-16.0); Mean Corpuscular HGB Conc 33 g/dl (31-36); Mean Corpuscular Hemoglobin 28 pg (27-31); Mean Corpuscular Volume 83 fL (80-97); Mean Platelet Volume 7 um3 (7.4-10.4); Platelet Count 206 10^3/ul (150-450); Red Blood Count 2.75 10^6/ul (4.0-5.4); Red Cell Distribution Width 16 % (10.5-15)
[2017-09-02 18:29] LABS: INR 2.11 (0.77-1.02)
[2017-09-02] MEDS: oxyCODONE TAB* 5 MG TAB PO PRN (23:06)
[2017-09-02] MEDS: Enoxaparin(*) 100 MG/ML SYR SUBCUT SCH (23:07)
[2017-09-02 23:10] LABS: ABS Basophils 0 10^3/ul (0-0.2); ABS Eosinophils 0 10^3/ul (0-0.6); ABS Lymphocytes 1.8 10^3/ul (1.0-4.8); ABS Monocytes 0.6 10^3/ul (0-0.8); ABS Neutrophils 9.2 10^3/ul (1.5-7.7); ABS Nucleated RBC 0 10^3/ul; Eosinophil % 0.2 % (0-6); Hematocrit 21 % (35-47); Hemoglobin 7.2 g/dl (12.0-16.0); Lymphocyte % 15.6 % (25-47); Mean Corpuscular HGB Conc 34 g/dl (31-36); Mean Corpuscular Hemoglobin 28 pg (27-31); Mean Corpuscular Volume 82 fL (80-97); Mean Platelet Volume 7 um3 (7.4-10.4); Nucleated Red Blood Cells % 0; Platelet Count 203 10^3/ul (150-450); Red Blood Count 2.56 10^6/ul (4.0-5.4); Red Cell Distribution Width 16 % (10.5-15); White Blood Count 11.6 10^3/ul (3.5-10.8)
[2017-09-03] MEDS: Acetaminophen TAB* 325 MG PO PRN ×3 (05:40→20:22)
[2017-09-03 06:03] LABS: ABS Basophils 0 10^3/ul (0-0.2); ABS Eosinophils 0 10^3/ul (0-0.6); ABS Lymphocytes 1.7 10^3/ul (1.0-4.8); ABS Monocytes 0.5 10^3/ul (0-0.8); ABS Neutrophils 8.3 10^3/ul (1.5-7.7); ABS Nucleated RBC 0 10^3/ul; Eosinophil % 0.4 % (0-6); Hematocrit 22 % (35-47); Hemoglobin 7.5 g/dl (12.0-16.0); Mean Corpuscular HGB Conc 35 g/dl (31-36); Mean Corpuscular Hemoglobin 29 pg (27-31); Mean Corpuscular Volume 83 fL (80-97); Mean Platelet Volume 8 um3 (7.4-10.4); Nucleated Red Blood Cells % 0; Platelet Count 215 10^3/ul (150-450); Red Blood Count 2.61 10^6/ul (4.0-5.4); Red Cell Distribution Width 16 % (10.5-15); White Blood Count 10.6 10^3/ul (3.5-10.8)
[2017-09-03 06:11] LABS: INR 2.85 (0.77-1.02)
[2017-09-03] MEDS: Enoxaparin(*) 100 MG/ML SYR SUBCUT SCH ×2 (11:10→23:29)
--- NOTE | 2017-09-03 11:52 | PN ---
Progress Note - Progress Note Date of Service: 09/03/17 SOAP: Subjective: Pt POD#1 s/p laparoscopic LSO with extensive evacuation of hemoperitoneum due to ruptured cyst and full anticoagulation. Pt is doing much better this AM. Feels 100 times better than before surgery, but tired and sore. Has ambulated x1, voided after getting Sorto out. Tolerating clears, but not much appetite. Interested in a little food later on. A little nausea but declines meds. Pain adequately controlled with PO tylenol and occasional oxycodone. Objective: Vital Signs: Temp Pulse Resp BP Pulse Ox 98.4 F 91 17 135/75 95 09/03/17 08:19 09/03/17 08:19 09/03/17 08:19 09/03/17 08:19 09/03/17 08:19 GEN: NAD, comfortable in bed Abd soft, minimal TTP, incisions c/d/i Laboratory Last Values WBC 10.6 10^3/ul (3.5-10.8) 09/03/17 05:52 RBC 2.61 10^6/ul (4.0-5.4) L 09/03/17 05:52 Hgb 7.5 g/dl (12.0-16.0) L 09/03/17 05:52 Hct 22 % (35-47) L 09/03/17 05:52 MCV 83 fL (80-97) 09/03/17 05:52 MCH 29 pg (27-31) 09/03/17 05:52 MCHC 35 g/dl (31-36) 09/03/17 05:52 RDW 16 % (10.5-15) H 09/03/17 05:52 Plt Count 215 10^3/ul (150-450) 09/03/17 05:52 MPV 8 um3 (7.4-10.4) 09/03/17 05:52 Neut % (Auto) 78.1 % (38-83) 09/03/17 05:52 Lymph % (Auto) 16.0 % (25-47) L 09/03/17 05:52 [place] % (Auto) 5.2 % (1-9) 09/03/17 05:52 Eos % (Auto) 0.4 % (0-6) 09/03/17 05:52 Baso % (Auto) 0.3 % (0-2) 09/03/17 05:52 Absolute Neuts (auto) 8.3 10^3/ul (1.5-7.7) H 09/03/17 05:52 Absolute Lymphs (auto) 1.7 10^3/ul (1.0-4.8) 09/03/17 05:52 Absolute Monos (auto) 0.5 10^3/ul (0-0.8) 09/03/17 05:52 Absolute Eos (auto) 0 10^3/ul (0-0.6) 09/03/17 05:52 Absolute Basos (auto) 0 10^3/ul (0-0.2) 09/03/17 05:52 Absolute Nucleated RBC 0 10^3/ul 09/03/17 05:52 Nucleated RBC % 0 09/03/17 05:52 Hypochromasia 2+ 09/02/17 10:40 INR (Anticoag Therapy) 2.85 (0.77-1.02) H 09/03/17 05:52 Sodium 140 mmol/L (133-145) 09/02/17 10:40 Potassium 3.6 mmol/L (3.5-5.0) 09/02/17 10:40 Chloride 100 mmol/L (101-111) L 09/02/17 10:40 Carbon Dioxide 25 mmol/L (22-32) 09/02/17 10:40 Anion Gap 15 mmol/L (2-11) H 09/02/17 10:40 BUN 9 mg/dL (6-24) 09/02/17 10:40 Creatinine 0.52 mg/dL (0.51-0.95) 09/02/17 10:40 Est GFR ( Amer) 170.6 (>60) 09/02/17 10:40 Est GFR (Non-Af Amer) 132.7 (>60) 09/02/17 10:40 BUN/Creatinine Ratio 17.3 (8-20) 09/02/17 10:40 Glucose 141 mg/dL (70-100) H 09/02/17 10:40 Lactic Acid 0.8 mmol/L (0.5-2.0) 09/02/17 10:40 Calcium 8.2 mg/dL (8.6-10.3) L 09/02/17 10:40 Total Bilirubin 0.40 mg/dL (0.2-1.0) 09/02/17 10:40 AST 12 U/L (13-39) L 09/02/17 10:40 ALT 10 U/L (7-52) 09/02/17 10:40 Alkaline Phosphatase 52 U/L (34-104) 09/02/17 10:40 Total Protein 6.0 g/dL (6.4-8.9) L 09/02/17 10:40 Albumin 3.6 g/dL (3.2-5.2) 09/02/17 10:40 Globulin 2.4 g/dL (2-4) 09/02/17 10:40 Albumin/Globulin Ratio 1.5 (1-3) 09/02/17 10:40 Assessment: POD1 doing much better after removal of lg amt of blood in abdomen. Starting to ambulate. Still appropriately anemic, but Hct completely stable x3. INR now 2.8 again, just started Lovenox last night. Plan: Continue to increase ambulation, advance diet today. Continue lovenox with plan to resume warfarin. Anticipate D/C in AM. Greatly appreciate hospitalist assistance with this patient.
[2017-09-03] MEDS: oxyCODONE TAB* 5 MG TAB PO PRN (14:10)
[2017-09-04] MEDS: oxyCODONE TAB* 5 MG TAB PO PRN (03:35)
[2017-09-04] MEDS: Acetaminophen TAB* 325 MG PO PRN (03:35)
[2017-09-04 05:39] LABS: ABS Basophils 0 10^3/ul (0-0.2); ABS Eosinophils 0.1 10^3/ul (0-0.6); ABS Lymphocytes 2.6 10^3/ul (1.0-4.8); ABS Monocytes 0.4 10^3/ul (0-0.8); ABS Neutrophils 4.3 10^3/ul (1.5-7.7); ABS Nucleated RBC 0 10^3/ul; Eosinophil % 1.8 % (0-6); Hematocrit 22 % (35-47); Hemoglobin 7.3 g/dl (12.0-16.0); Lymphocyte % 34.8 % (25-47); Mean Corpuscular HGB Conc 34 g/dl (31-36); Mean Corpuscular Hemoglobin 28 pg (27-31); Mean Corpuscular Volume 83 fL (80-97); Mean Platelet Volume 8 um3 (7.4-10.4); Nucleated Red Blood Cells % 0; Platelet Count 230 10^3/ul (150-450); Red Cell Distribution Width 16 % (10.5-15); White Blood Count 7.6 10^3/ul (3.5-10.8)
[2017-09-04 05:58] LABS: INR 2.36 (0.77-1.02)
[2017-09-04 07:36] VITALS: BP 125/73
--- NOTE | 2017-09-04 08:55 | OP ---
DATE OF OPERATION: 09/02/17 - ROOM #351 DATE OF : 80 SURGEON: Jluis Dobbs MD CHARGEBACK SPECIALIST: Elyse Groves MD ANESTHESIOLOGIST: Dr. Charli Bledsoe. ANESTHESIA: General. PRE-OP DIAGNOSIS: Ruptured left ovarian cyst with hemoperitoneum and history of anticoagulation. POST-OP DIAGNOSIS: Ruptured left ovarian cyst with hemoperitoneum and history of anticoagulation. OPERATIVE PROCEDURE: Laparoscopic evacuation of hemoperitoneum and left salpingo-oophorectomy. ESTIMATED BLOOD LOSS: 1500 cc. URINE OUTPUT: 700 cc. IV FLUIDS: 2500 cc lactated Ringer's and 2 units of packed red blood cells. MATERIALS TO LAB: Left fallopian tube and ovary. INDICATIONS: This patient is a 37-year-old, 3, para 2, with a history of an aortic valve replacement with a mechanical valve. The patient has been on full anticoagulation on warfarin. Last February, the patient had a ruptured right ovarian cyst, which resulted in extensive bleeding into the abdomen and she had the right fallopian tube and ovary removed at that time. The patient then began having significant abdominal discomfort about 6 weeks ago. She was seen in the emergency department a few times without any significant findings noted other than a modest ovarian cyst about 4 to 5 cm. About 2 weeks ago, the patient was given progesterone for endometrial withdrawal by a primary care provider because her endometrial lining was 8 mm in thickness. Of note, the patient had a history of an endometrial ablation and did not have any menstrual cycle. One day after completing the progesterone, the patient started to have even more intense pain resulting in inability to sleep for several nights in a row and having almost continuous severe abdominal pain. The day before surgery , the patient was seen in the emergency department one more time and noted to have some echogenic fluid in the pelvis but was discharged to home without any treatment. On examination in the office, the patient was having severe acute pain, tearful and inconsolable. She was admitted to the hospital for additional labs and was found to have a hematocrit that had decreased from 35 to 26 during that day. Her INR was 3.7, so the patient was given 4 units of FFP in order to reverse her anticoagulation and make it safe to perform surgery. By noon the next day, her INR had decreased to 1.7, but her hematocrit had decreased further to 14. Considering this, the decision was made to proceed urgently to surgery. We extensively discussed the procedure and she desired to have removal of the left fallopian tube and ovary. Considering the patient will be on lifelong anticoagulation and had had the same surgical emergency happen twice within 6 months, this was considered reasonable. She was extensively counseled and consent was signed. FINDINGS: Extensive amount of liquid and clotted blood throughout the abdomen and pelvis. Source of bleeding was noted to be the left ovary, which was markedly enlarged with 2 simple cysts and was bleeding in one small area. Of note, the uterus was also noted to be abnormal with significant distention of the left cornu, consistent with post tubal ablation syndrome. COMPLICATIONS: None. DESCRIPTION OF PROCEDURE: The risks, benefits, and alternatives were described to the patient and informed consent was obtained. The patient was taken to the operating room with IV running where general anesthesia was induced and found to be adequate. The patient was prepped and draped in the normal sterile fashion in the high lithotomy position in [facility]. A time-out was performed. A Sorto catheter was already in place. A sponge stick was placed in the vagina to assist with uterine manipulation. She was then returned to the low lithotomy position and attention was turned to the abdomen. 0.25% Marcaine was then injected into and just below the umbilicus. An approximately 1.5 cm incision was made with a scalpel. Penetrating towel clamps were placed on either side of the umbilicus to elevate the skin and a 12- mm bladeless trocar was placed into the abdominal cavity without difficulty under direct visualization. 0.25% Marcaine was then injected into the right and left lower quadrants at the patient's previous incision sites. 5-mm incisions were made in both of those sides and 5-mm bladeless trocars were placed into each incision without difficulty. On visualization of the abdomen and pelvis, there was a large amount of liquid and densely clotted blood throughout. A 5-mm and 10-mm suction veterinary nurse was used to remove this blood taking care to avoid injury to bowel. This process took over an hour. A 10-mm EndoCatch bag was used in order to remove some of the more solid blood that was difficult to suction. Once the abdomen and pelvis had been sufficiently cleaned , the patient was placed in the Trendelenburg position and the left ovary and tube were better visualized. There were 2 simple cysts on the ovary that were still intact. One area of bleeding was present and the bleeding was very slow. A LigaSure L-hook was used with monopolar cautery to open the simple cysts and drain them. The left infundibulopelvic ligament was then grasped with the LigaSure, coagulated in three spots, and then transected. The utero-ovarian ligament was coagulated in a similar fashion and transected. The connection to the broad ligament was then also coagulated and transected. Then the fallopian tube and ovary were fully amputated. A 10-mm EndoCatch bag was placed through the umbilical port and the fallopian tube and ovary were placed inside of it. This was removed and handed off as a specimen. Additional copious irrigation of the abdomen and pelvis including the liver edge were performed with saline. When the vast majority of the blood had been removed, the procedure was discontinued. The gas was allowed to escape from the abdomen and all three trocars were removed. The fascia at the umbilical site was grasped with Rustam clamps and closed with a [id number] stitch of 0 Vicryl. All three skin incisions were then closed with 4-0 Monocryl in a subcuticular stitch. They were all then also covered with DermaFlex skin adhesive. The sponge stick was removed from the vagina and the patient was returned to the supine position. The patient tolerated the procedure well. Sponge, lap, and needle counts were correct x2. The patient was given 2 units of packed red blood cells during the procedure. [id number]/[facility] #: [id number] [facility]
[2017-09-04] MEDS: Enoxaparin(*) 100 MG/ML SYR SUBCUT SCH (10:23)
--- NOTE | 2017-09-05 00:40 | PN ---
Hospitalist Progress Note Date of Service: 09/04/17 S: feeling much better, slight MCKEON O: INR to 2.36, Hgb 7.3 A/P: Recommendations: Recommend coumadin 7.5mg daily. Had most recently been taking 7.5mg vs 10mg [ she does not recall which was 3 vs 4 days]. Last INR on 08/28 was 3.8. Goal 2.5- 3.5 Continue 1mg/kg lovenox BID as outpatient until INR is within goal. Recommended recheck Wednesday 09/06, or at latest Friday 09/08. Continue to call into Dr. Canales's office.
== END 2017-09-04 11:20 | disposition home or self-care (01) | DRG 513 ==
LOC: MED 17:00 → ICU 09-02 11:53 → SSU 09-02 15:05
PROVIDERS: ADMIT Obstetrics & Gynecology; ATTEND Obstetrics & Gynecology
PROC: 02HV33Z Insertion of Infusion Device into Superior Vena Cava, Percutaneous Approach (ICD-10-PCS; 2017-09-01)
PROC: 30233N1 Transfusion of Nonautologous Red Blood Cells into Peripheral Vein, Percutaneous Approach (ICD-10-PCS; 2017-09-02)
PROC: 0UT64ZZ Resection of Left Fallopian Tube, Percutaneous Endoscopic Approach (ICD-10-PCS; 2017-09-02)
PROC: 0UT14ZZ Resection of Left Ovary, Percutaneous Endoscopic Approach (ICD-10-PCS; 2017-09-02)
PROC: 0WCG4ZZ Extirpation of Matter from Peritoneal Cavity, Percutaneous Endoscopic Approach (ICD-10-PCS; 2017-09-02)
PROC: 30233K1 Transfusion of Nonautologous Frozen Plasma into Peripheral Vein, Percutaneous Approach (ICD-10-PCS; principal; 2017-09-02 16:30)
DX: N83.202 Unspecified ovarian cyst, left side (principal); K66.1 Hemoperitoneum; D62 Acute posthemorrhagic anemia; J45.909 Unspecified asthma, uncomplicated; F32.9 Major depressive disorder, single episode, unspecified; F41.9 Anxiety disorder, unspecified; R33.9 Retention of urine, unspecified; Z95.2 Presence of prosthetic heart valve; Z98.51 Tubal ligation status; Z90.721 Acquired absence of ovaries, unilateral; Z87.442 Personal history of urinary calculi; Z82.0 Family history of epilepsy and other diseases of the nervous system; Z84.2 Family history of other diseases of the genitourinary system; Z82.49 Family history of ischemic heart disease and other diseases of the circulatory system; Z80.42 Family history of malignant neoplasm of prostate; Z80.8 Family history of malignant neoplasm of other organs or systems; Z87.891 Personal history of nicotine dependence; Z79.01 Long term (current) use of anticoagulants; Z88.5 Allergy status to narcotic agent; Z91.030 Bee allergy status
CPT/HCPCS: 36415; 36620; 76856; 80053; 81003; 83605; 83690; 85025; 85027; 85610; 85730; 86850; 86900; 86901; 86922; 86927; 88305; 96374; 96375; 99284; A9270-GY; C1751; J0694; J1170; J1650; J2405; J2765; J3010; P9017; P9040

== ENCOUNTER 2017-11-08 12:14 | Emergency (ER) | payer BC ==
--- NOTE | 2017-11-08 13:12 | RAD ---
INDICATION: Headache COMPARISON: CT of the brain dated May 07, 2017 TECHNIQUE: Contiguous axial sections of the brain were obtained from the skull base to the vertex without contrast. FINDINGS: The ventricles, cisterns and sulci are within normal limits. The mckee-white matter differentiation is adequately maintained and there is no sulcal effacement. No significant focal abnormality or mass effect is present. There is no evidence for intracranial hemorrhage. No significant focal osseous abnormality is present. The visualized portion of the paranasal sinuses appear clear. The mastoid air cells are well aerated bilaterally. IMPRESSION: Normal CT of the brain.
[2017-11-08] MEDS ORDERED: Ondansetron INJ* 2 MG/ML VIAL IV ONE (13:33)
[2017-11-08] MEDS ORDERED: NS 0.9% 1000 ML* 1,000 ML IV ONE (13:33)
[2017-11-08] MEDS ORDERED: Ketorolac INJ* 30 MG/ML 1 ML VIAL IM ONE (13:36)
[2017-11-08 14:37] LABS: ABS Basophils 0.1 10^3/ul (0-0.2); ABS Eosinophils 0.1 10^3/ul (0-0.6); ABS Lymphocytes 2.9 10^3/ul (1.0-4.8); ABS Monocytes 0.4 10^3/ul (0-0.8); ABS Neutrophils 4.2 10^3/ul (1.5-7.7); ABS Nucleated RBC 0 10^3/ul; Eosinophil % 0.9 % (0-6); Hematocrit 43 % (35-47); Hemoglobin 14.2 g/dl (12.0-16.0); Lymphocyte % 37.8 % (25-47); Mean Corpuscular HGB Conc 33 g/dl (31-36); Mean Corpuscular Hemoglobin 28 pg (27-31); Mean Corpuscular Volume 83 fL (80-97); Nucleated Red Blood Cells % 0.1; Platelet Count 322 10^3/ul (150-450); Red Blood Count 5.14 10^6/ul (4.0-5.4); Red Cell Distribution Width 14 % (10.5-15); White Blood Count 7.6 10^3/ul (3.5-10.8)
[2017-11-08 14:42] LABS: INR 3.88 (0.77-1.02)
[2017-11-08 14:45] LABS: Urine Appearance Clear; Urine Blood Negative (Negative); Urine Color Yellow; Urine Ketones 1+ (Negative); Urine Protein Negative (Negative); Urine Specific Gravity 1.009 (1.010-1.030); Urine Urobilinogen Negative (Negative)
[2017-11-08 14:54] LABS: EGFR Non-African American 85.6 (>60)
--- NOTE | 2017-11-08 15:28 | ED ---
Codie Brown Emily, scribed for Tapan Ocasio MD on 11/08/17 at 1317 . Headache - HPI Summary HPI Summary: This patient is a 37 year old F presenting to [facility] accompanied by family with a chief complaint of diffuse, pressure-like headache that began October 27, 2017. The patient rates the pain 8/10 in severity. Symptoms aggravated by recumbent position. Symptoms alleviated by nothing. Patient reports bilateral hand edema, numbness in left arm, CP (right-sided tightness), palpitations, neck pain, and blurred vision. PT denies abd pain, diarrhea, and nausea. Pt reports having an artificial heart valve. Pt reports that her cardiologists nurse referred her to the ED yesterday. - History Of Current Complaint Chief Complaint: EDHeadache Stated Complaint: HEADACHE Time Seen by Provider: 11/08/17 12:49 Hx Obtained From: Patient Hx Last Menstrual Period: December 2015 endometrial ablation Onset/Duration: Sudden Onset, Started weeks ago, Still Present Initially Headache Was: Severe Currently Pain Is: Severe Timing: Constant Character: Pressure Location of Headache: Diffuse Aggravating Factor: Position Change Allevating Factors: Nothing - Allergies/Home Medications Allergies/Adverse Reactions: Allergies Allergy/AdvReac Type Severity Reaction Status Date / Time bee venom protein (honey bee) Allergy Severe Rash Verified 11/08/17 13:30 dextrose Allergy Pain Verified 11/08/17 13:30 morphine Allergy Hives Verified 11/08/17 13:30 Home Medications: Home Medications Conjugated Estrogens TAB* [Premarin TAB*] 0.625 mg PO DAILY 11/08/17 [History Confirmed 11/08/17] Estrogens/Medroxypr 0.625(NF) [Prempro 0.625/2.5(NF)] 1 tab PO DAILY 11/08/17 [ History Confirmed 11/08/17] Ferrous Sulfate TAB* 325 mg PO DAILY 11/08/17 [History Confirmed 11/08/17] Multivitamins/Minerals TAB* [Theragran/minerals TAB*] 1 tab PO DAILY 11/08/17 [ History Confirmed 11/08/17] Warfarin TAB(*) [Coumadin TAB(*)] 7.5 mg PO .SUTUTHSA 11/08/17 [History Confirmed 11/08/17] Warfarin TAB(*) [Coumadin TAB(*)] 10 mg PO .MOWEFR 11/08/17 [History Confirmed 11/08/17] PMH/Surg Hx/FS Hx/Imm Hx Previously Healthy: No Endocrine/Hematology History: Reports: Hx Anticoagulant Therapy - coumadin, Hx Anemia - TAKES IRON Denies: Hx Diabetes, Hx Thyroid Disease Cardiovascular History: Reports: Hx Congenital Heart Disease, Hx Hypertension, Hx Valvular Heart Disease - mechanical heart valve Denies: Hx Pacemaker/ICD Respiratory History: Reports: Hx Asthma - exercise induced when younger Denies: Hx Chronic Obstructive Pulmonary Disease (COPD), Hx Sleep Apnea GI History: Denies: Hx Gastroesophageal Reflux Disease, Hx Jaundice, Hx Ulcer History: Reports: Other Problems/Disorders - Rt oophorectomy d/t ruptured hemorrhagic cyst Denies: Hx Dialysis, Hx Renal Disease Musculoskeletal History: Reports: Hx Tendonitis - LEFT SHOULDER Sensory History: Reports: Hx Contacts or Glasses - GLASSES Denies: Hx Hearing Aid Opthamlomology History: Reports: Hx Contacts or Glasses - GLASSES Neurological History: Denies: Hx Headaches, Hx Migraine, Hx Nerve Disease, Hx Seizures Psychiatric History: Denies: Hx Anxiety, Hx Depression, Hx Panic Disorder - Surgical History Surgery Procedure, Year, and Place: t&a. 2002, 2007. tubal ligation , LAPROSCOPY 2004. Endometrial ablation 2016. 05/29/16 Mechanical heart valve replacement. RT OVARY REMOVED 03/07/2017. HX OF 3 LAPOROSCOPIC SURGERIES Hx Anesthesia Reactions: No Infectious Disease History: No Infectious Disease History: Denies: Hx Hepatitis, Hx Human Immunodeficiency Virus (HIV), Traveled Outside the [place] in Last 30 Days - Family History Known Family History: Positive: Hypertension, Other - Migraines Family History: FHx of cholecystitis - Social History Occupation: Employed Full-time Lives: Alone Alcohol Use: Rare Alcohol Amount: SPECIAL OCCASIONS ONLY Hx Substance Use: No Substance Use Type: Reports: None Substance Use Comment - Amount & Last Used: occasional/last used few months ago Hx Tobacco Use: Yes - not currently Smoking Status (MU): Former Smoker Review of Systems Positive: Blurred Vision Positive: Palpitations, Chest Pain Negative: Abdominal Pain, Vomiting, Nausea Positive: Edema, Other - Positive neck pain Positive: Headache, Numbness All Other Systems Reviewed And Are Negative: Yes Physical Exam - Summary Physical Exam Summary: Appearance: Well-appearing, Well-nourished Skin: Warm Eyes: Normal ENT: Normal Neck: Supple, nontender Respiratory: Clear to auscultation Cardiovascular: Regular rate, regular rhythm. Normal S1, S2. Abdomen: Soft, nontender Musculoskeletal: Normal, Strength/ROM Intact Neurological: Normal, A&Ox3, no focal neurological deficits, no sensory changes , cranial nerves II-VII grossly intact, upper and lower extremity strength 5/5 Psychiatric: Normal General: No acute distress Triage Information Reviewed: Yes Vital Signs On Initial Exam: Initial Vitals Temp Pulse Resp BP Pulse Ox 97.9 F 77 16 156/95 100 11/08/17 12:18 11/08/17 12:18 11/08/17 12:18 11/08/17 12:18 11/08/17 12:18 Vital Signs Reviewed: Yes Diagnostics - Vital Signs Vital Signs Temp Pulse Resp BP Pulse Ox 11/08/17 12:18 97.9 F 77 16 156/95 100 - Laboratory Lab Results: Lab Results 11/08/17 11/08/17 11/08/17 Range/Units 14:27 14:27 14:27 WBC 7.6 (3.5-10.8) 10^3/ul RBC 5.14 (4.0-5.4) 10^6/ul Hgb 14.2 (12.0-16.0) g/dl Hct 43 (35-47) % MCV 83 (80-97) fL MCH 28 (27-31) pg MCHC 33 (31-36) g/dl RDW 14 (10.5-15) % Plt Count 322 (150-450) 10^3/ul MPV 8.0 (7.4-10.4) um3 Neut % (Auto) 55.6 (38-83) % Lymph % (Auto) 37.8 (25-47) % Osborne % (Auto) 5.0 (0-7) % Eos % (Auto) 0.9 (0-6) % Baso % (Auto) 0.7 (0-2) % Absolute Neuts (auto) 4.2 (1.5-7.7) 10^3/ul Absolute Lymphs (auto) 2.9 (1.0-4.8) 10^3/ul Absolute Monos (auto) 0.4 (0-0.8) 10^3/ul Absolute Eos (auto) 0.1 (0-0.6) 10^3/ul Absolute Basos (auto) 0.1 (0-0.2) 10^3/ul Absolute Nucleated RBC 0 10^3/ul Nucleated RBC % 0.1 INR (Anticoag Therapy) 3.88 H (0.77-1.02) Sodium 138 L (139-145) mmol/L Potassium 3.6 (3.5-5.0) mmol/L Chloride 104 (101-111) mmol/L Carbon Dioxide 24 (22-32) mmol/L Anion Gap 10 (2-11) mmol/L BUN 9 (6-24) mg/dL Creatinine 0.76 (0.51-0.95) mg/dL Est GFR ( Amer) 110.1 (>60) Est GFR (Non-Af Amer) 85.6 (>60) BUN/Creatinine Ratio 11.8 (8-20) Glucose 76 (70-100) mg/dL Calcium 10.3 (8.6-10.3) mg/dL Total Bilirubin 0.40 (0.2-1.0) mg/dL AST 23 (13-39) U/L ALT 16 (7-52) U/L Alkaline Phosphatase 69 (34-104) U/L Total Protein 8.1 (6.4-8.9) g/dL Albumin 4.9 (3.2-5.2) g/dL Globulin 3.2 (2-4) g/dL Albumin/Globulin Ratio 1.5 (1-3) Urine Color Urine Appearance Urine pH (5-9) Ur Specific [place] (1.010-1.030) Urine Protein (Negative) Urine Ketones (Negative) Urine Blood (Negative) Urine Nitrate (Negative) Urine Bilirubin (Negative) Urine Urobilinogen (Negative) Ur Leukocyte Esterase (Negative) Urine Glucose (Negative) Urine Ascorbic Acid (Negative) 11/08/17 Range/Units 14:39 WBC (3.5-10.8) 10^3/ul RBC (4.0-5.4) 10^6/ul Hgb (12.0-16.0) g/dl Hct (35-47) % MCV (80-97) fL MCH (27-31) pg MCHC (31-36) g/dl RDW (10.5-15) % Plt Count (150-450) 10^3/ul MPV (7.4-10.4) um3 Neut % (Auto) (38-83) % Lymph % (Auto) (25-47) % Osborne % (Auto) (0-7) % Eos % (Auto) (0-6) % Baso % (Auto) (0-2) % Absolute Neuts (auto) (1.5-7.7) 10^3/ul Absolute Lymphs (auto) (1.0-4.8) 10^3/ul Absolute Monos (auto) (0-0.8) 10^3/ul Absolute Eos (auto) (0-0.6) 10^3/ul Absolute Basos (auto) (0-0.2) 10^3/ul Absolute Nucleated RBC 10^3/ul Nucleated RBC % INR (Anticoag Therapy) (0.77-1.02) Sodium (139-145) mmol/L Potassium (3.5-5.0) mmol/L Chloride (101-111) mmol/L Carbon Dioxide (22-32) mmol/L Anion Gap (2-11) mmol/L BUN (6-24) mg/dL Creatinine (0.51-0.95) mg/dL Est GFR ( Amer) (>60) Est GFR (Non-Af Amer) (>60) BUN/Creatinine Ratio (8-20) Glucose (70-100) mg/dL Calcium (8.6-10.3) mg/dL Total Bilirubin (0.2-1.0) mg/dL AST (13-39) U/L ALT (7-52) U/L Alkaline Phosphatase (34-104) U/L Total Protein (6.4-8.9) g/dL Albumin (3.2-5.2) g/dL Globulin (2-4) g/dL Albumin/Globulin Ratio (1-3) Urine Color Yellow Urine Appearance Clear Urine pH 7.0 (5-9) Ur Specific [place] 1.009 L (1.010-1.030) Urine Protein Negative (Negative) Urine Ketones 1+ A (Negative) Urine Blood Negative (Negative) Urine Nitrate Negative (Negative) Urine Bilirubin Negative (Negative) Urine Urobilinogen Negative (Negative) Ur Leukocyte Esterase Negative (Negative) Urine Glucose Negative (Negative) Urine Ascorbic Acid * A (Negative) Result Diagrams: 11/08/17 14:27 11/08/17 14:27 Lab Statement: Any lab studies that have been ordered have been reviewed, and results considered in the medical decision making process. - CT Brain CT CT Interpretation Completed By: Radiologist - Brain CT reveals, per radiologist , normal CT of the brain. ED physician has reviewed this radiology report. - EKG 1224 Cardiac Rate: NL EKG Rhythm: Sinus Rhythm - 65 BPM EKG Interpretation: No STT wave changes or T wave inversions Re-Evaluation - Re-Evaluation First Eval Re-Evaluation Time: 15:00 Change: Unchanged Comment: Discussed plan of care with pt Headache Course/Dx - Course Course Of Treatment: Labs WNL. CT head neg, pain and nausea control achieved. f /u with neurology - Diagnoses Provider Diagnoses: Ocular migraine Discharge - Sign-Out/Discharge Documenting (check all that apply): Discharge - Discharge Plan Condition: Stable Disposition: HOME Prescriptions: HYDROcodone/ACETAMIN 5-325 MG* [[place] 5-325 TAB*] 1 tab PO Q8H PRN 3 Days #9 tab MDD 3 PRN Reason: Pain Ondansetron TAB* [Zofran 4 MG Tab*] 4 mg PO Q6H PRN 5 Days #20 tab PRN Reason: Nausea Patient Education Materials: Ocular Migraine (ED) Referrals: Sumi Yan MD [Primary Care Provider] - - Billing Disposition and Condition Condition: STABLE Disposition: HOME The documentation as recorded by the Codie villarreal Emily accurately reflects the service I personally performed and the decisions made by , Tapan Ocasio MD.
[2017-11-08 15:46] VITALS: BP 142/84
== END 2017-11-08 15:45 | disposition home or self-care (01) ==
LOC: ED 12:14
DX: G43.909 Migraine, unspecified, not intractable, without status migrainosus (principal); R00.2 Palpitations; R07.89 Other chest pain; R60.0 Localized edema; D64.9 Anemia, unspecified; Q24.9 Congenital malformation of heart, unspecified; I10 Essential (primary) hypertension; Z79.01 Long term (current) use of anticoagulants; J45.990 Exercise induced bronchospasm; Z88.5 Allergy status to narcotic agent; Z87.891 Personal history of nicotine dependence
CPT/HCPCS: 36415; 70450; 80053; 81003; 85025; 85610; 93005; 96372; 96374; 96375; 99283; J1885; J2405

== ENCOUNTER 2017-11-12 08:45 | Emergency (ER) | payer BC ==
[2017-11-12 09:03] VITALS: BP 154/73
--- NOTE | 2017-11-12 09:24 | RAD ---
HISTORY: Right ankle pain, injury COMPARISONS: None VIEWS: 3, Frontal, lateral, and oblique views of the right ankle FINDINGS: BONE DENSITY: Normal. BONES: There is no displaced fracture. JOINTS: There is no arthropathy. ALIGNMENT: There is no dislocation. SOFT TISSUES: Unremarkable. OTHER FINDINGS: None. IMPRESSION: NO ACUTE OSSEOUS INJURY. IF SYMPTOMS PERSIST, RECOMMEND REPEAT IMAGING.
--- NOTE | 2017-11-12 09:27 | UC ---
Yamel Brown Julia, scribed for Stephany Rawls MD on 11/12/17 at 0925 . Lower Extremity/Ankle HPI - HPI Summary HPI Summary: This patient is a 37 year old F presenting to [facility] s/p inverting, described as rolling, her right ankle while walking up steps on 11/09/17. Pt states she caught herself when she only stepped half way onto a step. Patient reports current pain rated an 8/10 in severity. Patient denies knee pain and numbness/ tingling in the foot. The patient rates the pain 8/10 in severity. Symptoms aggravated by eversion and dorsiflexion. Pt took half a hydrocodone this morning. She has been icing her ankle. She reports changes in gait pattern due to pain. At the age of 17 she had multiple small fractures in her right foot. Pt is currently taking Warfarin for a mechanical heart valve, but discontinued taking it for a couple of days. Medication and allergies reviewed this visit. - History of Current Complaint Stated Complaint: ANKLE INJURY Hx Obtained From: Patient Hx Last Menstrual Period: year ago, s/p ablasion Onset/Duration: Sudden Onset, Lasting Days Pain Intensity: 8 Pain Scale Used: 0-10 Numeric Aggravating Factor(s): Standing, Ambulation - Allergies/Home Medications Allergies/Adverse Reactions: Allergies Allergy/AdvReac Type Severity Reaction Status Date / Time bee venom protein (honey bee) Allergy Severe Rash Verified 11/12/17 08:53 dextrose Allergy Pain Verified 11/12/17 08:53 morphine Allergy Hives Verified 11/12/17 08:53 Home Medications: Home Medications Potassium Chlor TAB* [Potassium Chlor TAB 20 MEQ*] 20 meq PO DAILY 11/12/17 [ History Confirmed 11/12/17] PMH/Surg Hx/FS Hx/Imm Hx Previously Healthy: Yes Cardiovascular History: Other Other Cardiovascular History: Mechancial heart valve Other History Of: Anticoagulant Therapy - coumadin - Surgical History Surgical History: Yes Surgery Procedure, Year, and Place: t&a. 2002, 2007. tubal ligation , LAPROSCOPY 2004. Endometrial ablation 2016. 05/29/16 Mechanical heart valve replacement. RT OVARY REMOVED 03/07/2017. HX OF 3 LAPOROSCOPIC SURGERIES - Family History Known Family History: Positive: Hypertension, Other - Migraines Family History: FHx of cholecystitis - Social History Occupation: Employed Full-time - lab work, on feet Lives: With Family Alcohol Use: Rare Alcohol Amount: SPECIAL OCCASIONS ONLY Substance Use Type: None Substance Use Comment - Amount & Last Used: occasional/last used few months ago Smoking Status (MU): Former Smoker When Did the Patient Quit Smoking/Using Tobacco: 14 years ago - Immunization History Most Recent Influenza Vaccination: unk Most Recent Pneumonia Vaccination: unk Review of Systems Constitutional: Negative Musculoskeletal: Negative - knee pain, Decreased ROM, Other: - R ankle pain Neurological: Negative All Other Systems Reviewed And Are Negative: Yes Physical Exam Triage Information Reviewed: Yes Appearance: Well-Appearing, No Pain Distress, Well-Nourished Vital Signs: Initial Vital Signs Temp 97.3 F 11/12/17 08:57 Pulse 68 11/12/17 08:57 Resp 16 11/12/17 08:57 BP 154/73 11/12/17 08:57 Pulse Ox 99 11/12/17 08:57 Vital Signs Reviewed: Yes Eyes: Positive: Conjunctiva Clear ENT: Positive: Hearing grossly normal Neck: Positive: Supple Respiratory: Positive: No respiratory distress, No accessory muscle use Cardiovascular: Positive: Other: - 2+ DP, PT Musculoskeletal: Positive: Other: - + flex/ext knee + flex/ext ankle with discomfort lateral malleolus Pain increases with inversion no crepitus mild edema no open wound Neurological Exam: Normal Neurological: Positive: Other: - + great sensation throughout Psychological Exam: Normal Skin Exam: Normal Diagnostics - Radiology Ankle XR Radiology Interpretation Completed By: Radiologist - NO ACUTE OSSEOUS INJURY. IF SYMPTOMS PERSIST, RECOMMEND REPEAT IMAGING. Physician has reviewed this report. Lower Extremity Course/Dx - Course Course Of Treatment: Pt inversted ankle 2 days ago, ongoing pain. no crepitus. mild edema. will check imaging. ice. apap. josias. crutches. pcp f/u - Differential Dx/Diagnosis Provider Diagnoses: ankle sprain Discharge - Sign-Out/Discharge Documenting (check all that apply): Discharge - Discharge Plan Condition: Stable Disposition: HOME Patient Education Materials: Ankle Sprain (ED) Forms: *Work Release Referrals: Sumi Yan MD [Primary Care Provider] - Additional Instructions: -wear josias wrap for comfort and support -apply ice (20 min at a time) every 2-3 hours for the next 2 days -use crutches until you can walk normally without a limp -Elevate your leg - this will help with swelling and pain - Okay to take Tylenol every 6-8 hours for pain -Contact your doctor to arrange a follow-up appointment next week. If you continue to have pain, your doctor may refer you to information security specialist or physical therapy. Contact your doctor or return with questions or concerns - Billing Disposition and Condition Condition: STABLE Disposition: HOME The documentation as recorded by the Yamel villarreal Julia accurately reflects the service I personally performed and the decisions made by , Stephany Rawls MD.
== END 2017-11-12 09:42 | disposition home or self-care (01) ==
LOC: UCEAST 08:45
DX: S93.401A Sprain of unspecified ligament of right ankle, initial encounter (principal); X58.XXXA Exposure to other specified factors, initial encounter; Y93.89 Activity, other specified; Y92.9 Unspecified place or not applicable; Z79.01 Long term (current) use of anticoagulants; Z88.5 Allergy status to narcotic agent; Z87.891 Personal history of nicotine dependence
CPT/HCPCS: 99212; G0463

== ENCOUNTER 2018-03-20 14:17 | Emergency (ER) | payer BC ==
[2018-03-20 14:39] VITALS: BP 149/104
--- NOTE | 2018-03-20 14:47 | UC ---
Abdominal Pain Female HPI - HPI Summary HPI Summary: 37-year-old patient who states that for the past week she's had left upper quadrant pain which radiates towards her flank. She has been hydrating aggressively due to past history of kidney stones. She has also been taking an [id number] Azo/cranberry pill. He has been feeling fatigued, having sweats, sore throat, and this morning started having loose stools. Denies any blood in melena or mucus in the stools. Denies vomiting but some nausea is present. She has history of a mechanical aortic while replacement, for which she is taking Coumadin. He also has history of bilateral offer ectomy and is on Premarin, and history of migraine headaches controlled with gabapentin 600 daily at bedtime. - History of Current Complaint Stated Complaint: HEADACHE, NAUSEA Time Seen by Provider: 03/20/18 14:35 Hx Obtained From: Patient Hx Last Menstrual Period: year ago, s/p ablasion ?: No Onset/Duration: Sudden Onset, Lasting Days Severity Initially: Mild Severity Currently: Moderate Location: Discrete At: LUQ Radiates: Yes Radiates to: Flank Character: Aching, Dull Aggravating Factor(s): Nothing Alleviating Factor(s): Nothing Associated Signs and Symptoms: Positive: Diaphoresis, Urinary Symptoms, Diarrhea - Risk Factors Ectopic Risk Factor: Negative Ovarian Torsion Risk Factor: Negative Allergies/Adverse Reactions: Allergies Allergy/AdvReac Type Severity Reaction Status Date / Time bee venom protein (honey bee) Allergy Severe Rash Verified 11/12/17 08:53 dextrose Allergy Pain Verified 11/12/17 08:53 morphine Allergy Hives Verified 11/12/17 08:53 PMH/Surg Hx/FS Hx/Imm Hx Previously Healthy: Yes Neurological History: Migraine Other History Of: Anticoagulant Therapy - coumadin - Surgical History Surgical History: Yes Surgery Procedure, Year, and Place: t&a. 2002, 2007. tubal ligation , LAPROSCOPY 2004. Endometrial ablation 2016. 05/29/16 Mechanical heart valve replacement. RT OVARY REMOVED 03/07/2017. HX OF 3 LAPOROSCOPIC SURGERIES - Family History Known Family History: Positive: Hypertension, Other - Migraines Family History: FHx of cholecystitis - Social History Alcohol Use: Rare Alcohol Amount: SPECIAL OCCASIONS ONLY Substance Use Type: None Substance Use Comment - Amount & Last Used: occasional/last used few months ago Smoking Status (MU): Former Smoker When Did the Patient Quit Smoking/Using Tobacco: 14 years ago - Immunization History Most Recent Influenza Vaccination: unk Most Recent Pneumonia Vaccination: unk Review of Systems Constitutional: Negative Skin: Negative Eyes: Negative ENT: Negative Respiratory: Negative Cardiovascular: Negative Gastrointestinal: Abdominal Pain, Diarrhea Genitourinary: Frequency Motor: Negative Neurovascular: Negative Musculoskeletal: Negative Neurological: Weakness Psychological: Negative All Other Systems Reviewed And Are Negative: Yes Physical Exam Triage Information Reviewed: Yes Appearance: No Pain Distress, Obese Vital Signs Reviewed: Yes Eyes: Positive: Conjunctiva Clear ENT: Positive: Hearing grossly normal Neck: Positive: Supple, Nontender, No Lymphadenopathy Respiratory: Positive: Chest non-tender, Lungs clear, Normal breath sounds, No respiratory distress Cardiovascular: Positive: RRR, No Murmur, Pulses Normal, Brisk Capillary Refill , Other: - mechanical click Abdomen Description: Positive: Nontender, No Organomegaly, Soft, Bruit Bowel Sounds: Positive: Present Abd Pain Female Course/Dx - Course Course Of Treatment: Patient had a CT scan without contrast of her abdomen and pelvis which was normal and only showed subcutaneous hematoma as due to Lovenox administration 5 weeks ago. There was no evidence of ureterolithiasis. Patient complains of urinary frequency and foul-smelling urine. We'll start antibiotics as prescribed and will await results of urine culture. Possibly she may also be having . Viral gastroenteritis as she has constitutional symptoms, short throat, nausea, and onset of diarrhea today. Advised patient to go to the ER if symptoms do not aramis within the first 3 doses of antibiotic or day progress. - Differential Dx/Diagnosis Provider Diagnoses: UTI. Viral gastroenteritis Discharge - Sign-Out/Discharge Documenting (check all that apply): Patient Departure All imaging exams completed and their final reports reviewed: Yes - Discharge Plan Condition: Stable Disposition: HOME Patient Education Materials: Gastroenteritis (ED), Urinary Tract Infection in Women (DC) Referrals: Sumi Yan MD [Primary Care Provider] - - Billing Disposition and Condition Condition: STABLE Disposition: Home
--- NOTE | 2018-03-20 15:26 | RAD ---
INDICATION: Left flank pain. History of urolithiasis. On Coumadin for aortic valve replacement COMPARISON: CT August 28, 2017 TECHNIQUE: Noncontrast axial source images were acquired from the level hemidiaphragms to the symphysis pubis as part of CT imaging for renal stone. Lung bases: The lung bases are clear. Liver: The liver is normal in size. Noncontrast imaging shows no evidence of a hepatic mass or ductal dilatation. Gallbladder: There are no calcified gallstones. There is no evidence of wall thickening or pericholecystic fluid.. Spleen: The spleen is normal in size. The noncontrast CT appearance is normal. Pancreas: Noncontrast imaging shows no pancreatic mass or ductal dilitation. Adrenal glands: No masses are identified. Kidneys/Bladder: There is no evidence of obstruction or definite evidence of urolithiasis. There are several tiny calcifications in the minor pelvis which are likely phleboliths. Noncontrast imaging shows no evidence of a renal mass. The bladder is unremarkable.. Adenopathy: There is no evidence of intraperitoneal or retroperitoneal adenopathy. Evaluation is limited without oral contrast. Fluid collections: There are no free or localized fluid collections. Vessels: The aorta and iliac vessels are normal in caliber. There are no significant atherosclerotic changes. The IVC appears normal Pelvic organs: The uterus and adnexa appear normal GI tract: Evaluation of the bowel is limited without oral contrast. The stomach, small bowel, and lower GI tract appear grossly normal. There are no obstructive findings. The appendix is visualized and appears normal. Soft tissues: There are rounded masses in the subcutaneous soft tissues of the anterior lower pelvis. These measure up to 3.6 cm and may represent recent injection sites but this should be correlated with clinical history. These were not present previously.. Osseous structures: There are no acute osseous findings. IMPRESSION: 1. NO CT EVIDENCE OF UROLITHIASIS. 2. SUSPECT MULTIPLE SUPERFICIAL HEMATOMAS FROM PRIOR SUBCUTANEOUS INJECTIONS. SUGGEST CORRELATION WITH CLINICAL HISTORY.
[2018-03-20] MEDS ORDERED: Nitrofurantoin Macrocrystals* 50 MG CAP PO ONE (15:56)
== END 2018-03-20 16:03 | disposition home or self-care (01) ==
LOC: UCCORT 14:17
DX: N39.0 Urinary tract infection, site not specified (principal); A08.4 Viral intestinal infection, unspecified; Z87.442 Personal history of urinary calculi; Z87.891 Personal history of nicotine dependence; Z88.5 Allergy status to narcotic agent; Z88.8 Allergy status to other drugs, medicaments and biological substances
CPT/HCPCS: 74176; 81003; 99212; A9270-GY; G0463

== ENCOUNTER 2019-07-03 14:09 | Emergency (ER) | payer BC ==
--- NOTE | 2019-07-03 14:25 | ED ---
HPI Chest Pain - HPI Summary HPI Summary: 39 y/o F w hx aortic valve replacement in [place] (follows w Dr. Jarrett), diagnosed w pneumonia 11 days ago p/w CP. She states throat, ear pain, fatigue, and chills. She was seen by [facility] and they stated if she was not better by this morning, she should erick to ED for labs to evaluate for possible infection in her valve. She states she hasnt had fevers recently but has felt fatigued. She is concerned about persistent pneumonia. Recent negative flu and strep tests at PCP. Of note, patient on warfarin for valve replacement 4 years ago. Finished zpack this AM. CP since PNA diagnosis. Reports aching pain w cough. No SOB. No WILSON. - History of Current Complaint Time Seen by Provider: 07/03/19 14:18 Hx Obtained From: Patient Hx Last Menstrual Period: year ago, s/p ablasion Onset/Duration: Started Weeks Ago - Additional Pertinent History Primary Care Physician: [id number] - Allergy/Home Medications Allergies/Adverse Reactions: Allergies Allergy/AdvReac Type Severity Reaction Status Date / Time bee venom protein (honey bee) Allergy Severe Rash Verified 07/03/19 14:35 dextrose Allergy Pain Verified 07/03/19 14:35 morphine Allergy Hives Verified 07/03/19 14:35 Home Medications: Home Medications Albuterol Sulfate [Albuterol Sulfate Hfa] 1 puff INH Q4HR PRN 07/03/19 [History Confirmed 07/03/19] Codeine Phosphate/Guaifenesin [Guaiatussin AC Liquid] 5 ml PO Q12HR 07/03/19 [ History Confirmed 07/03/19] Levothyroxine Sodium 75 mcg PO BEDTIME 07/03/19 [History Confirmed 07/03/19] PMH/Surg Hx/FS Hx/Imm Hx Endocrine/Hematology History: Reports: Hx Anticoagulant Therapy - coumadin, Hx Anemia - TAKES IRON Denies: Hx Diabetes, Hx Thyroid Disease Cardiovascular History: Reports: Hx Congenital Heart Disease, Hx Hypertension, Hx Valvular Heart Disease - mechanical heart valve , Other Cardiovascular Problems/Disorders - HX PROSTHESTIC HEART VALVE REPLACEMENT Denies: Hx Pacemaker/ICD Respiratory History: Reports: Hx Asthma - exercise induced when younger Denies: Hx Chronic Obstructive Pulmonary Disease (COPD), Hx Sleep Apnea GI History: Denies: Hx Gastroesophageal Reflux Disease, Hx Jaundice, Hx Ulcer History: Reports: Other Problems/Disorders - Rt oophorectomy d/t ruptured hemorrhagic cyst Denies: Hx Dialysis, Hx Renal Disease Musculoskeletal History: Reports: Hx Tendonitis - LEFT SHOULDER Sensory History: Reports: Hx Contacts or Glasses - GLASSES Denies: Hx Hearing Aid Opthamlomology History: Reports: Hx Contacts or Glasses - GLASSES Neurological History: Denies: Hx Headaches, Hx Migraine, Hx Nerve Disease, Hx Seizures Psychiatric History: Denies: Hx Anxiety, Hx Depression, Hx Panic Disorder - Surgical History Surgery Procedure, Year, and Place: t&a. 2002, 2007. tubal ligation , LAPROSCOPY 2004. Endometrial ablation 2016. 05/29/16 Mechanical heart valve replacement. RT OVARY REMOVED 03/07/2017. HX OF 3 LAPOROSCOPIC SURGERIES Hx Anesthesia Reactions: No Infectious Disease History: Denies: Hx Hepatitis, Hx Human Immunodeficiency Virus (HIV) - Family History Known Family History: Positive: Hypertension, Other - Migraines Family History: FHx of cholecystitis - Social History Alcohol Use: Rare Alcohol Amount: SPECIAL OCCASIONS ONLY Hx Substance Use: No Substance Use Type: Reports: None Substance Use Comment - Amount & Last Used: occasional/last used few months ago Hx Tobacco Use: Yes - not currently Smoking Status (MU): Former Smoker Review of Systems Positive: Chills, Fatigue Positive: Sore Throat, Ear Ache Positive: Chest Pain - Pleuritic All Other Systems Reviewed And Are Negative: Yes Physical Exam - Summary Physical Exam Summary: Constitutional: Well-developed, Well-nourished, Alert. (-) Distressed Skin: Warm, Dry HENT: Normocephalic; Atraumatic Eyes: Conjunctiva normal Neck: Musculoskeletal ROM normal neck. (-) JVD, (-) Stridor, (-) Nuchal rigidity Cardio: Rhythm regular, rate normal, Heart sounds normal; Intact distal pulses; Radial pulses are 2+ and symmetric. (+) Systolic click murmur. Anterior chest wall incision. Pulmonary/Chest wall: Effort normal. (-) Respiratory distress, (-) Wheezes, (-) Rales Abd: Soft, (-) tenderness, (-) Distension, (-) Guarding, (-) Rebound Musculoskeletal: (-) Edema Lymph: (-) Cervical adenopathy Neuro: Alert, Oriented x3 Psych: Mood and affect Normal Triage Information Reviewed: Yes Vital Signs On Initial Exam: Temp Pulse Resp BP Pulse Ox 98.1 F 82 16 171/90 99 07/03/19 14:25 07/03/19 14:25 07/03/19 14:25 07/03/19 14:25 07/03/19 14:25 Vital Signs Reviewed: Yes Procedures - Sedation Patient Received Moderate/Deep Sedation with Procedure: No Diagnostics - Laboratory Result Diagrams: 07/03/19 15:00 07/03/19 15:00 Lab Statement: Any lab studies that have been ordered have been reviewed, and results considered in the medical decision making process. - Radiology CXR Summary of Radiographic Findings: 1. No acute cardiopulmonary process by radiograph. 2. Postoperative changes as above. ED Provider has reviewed this report. - EKG 1427 Cardiac Rate: NL - 66 BPM EKG Rhythm: Sinus Rhythm Summary of EKG Findings: An EKG at 1427 reveals normal sinus rhythm 66 BPM, nml axis, nml intervals. No STEMI. No acute changes. ED Physician has reviewed and interpreted this report. Chest Pain Course/Dx - Course Course Of Treatment: 39 y/o F w hx aortic valve replacement in [place] ( follows maricarmen), diagnosed w pneumonia 11 days ago p/w CP. - PE well appearing , systolic click mumur 2/2 valve. - CXR w/o PNA. Labs w/o leukocytosis. EKG sinus and trop neg. Suspect pain 2/2 cough and recent PNA. Given 1 L IVF. Also had reported migraine (hx migraine) so given migraine cocktail. Patient states she feels much better. Advised to follow up w PCP and return for worsening. - Diagnoses Provider Diagnoses: URI (upper respiratory infection) Discharge ED - Sign-Out/Discharge Documenting (check all that apply): Patient Departure - Discharge - Discharge Plan Condition: Stable Disposition: HOME Patient Education Materials: Upper Respiratory Infection (ED) Referrals: Sumi Yan MD [Primary Care Provider] - Additional Instructions: You were seen in the emergency department for fatigue and chest pain. Your labs did not show evidence of infection, your chest XRay did not show pneumonia. If any studies were not completed at the time of discharge you will be called with the relevant results. Please follow up with your primary care doctor in next 2-3 days and return to emergency department for worsening or concerning symptoms. It was a pleasure taking care of you today. - Billing Disposition and Condition Condition: STABLE Disposition: Home - Attestation Statements Document Initiated by Cl[place]is: Yes Documenting Scribe: Lb Rosales Provider For Whom Clovis is Documenting (Include Credential): Billie Ventura MD Scribe Attestation: ILb, scribed for Billie Ventura MD on 07/05/19 at 0934. Scribe Documentation Reviewed: Yes Provider Attestation: The documentation as recorded by the [email or web address] sue accurately reflects the service I personally performed and the decisions made by me, Billie Ventura MD Status of Scribe Document: Viewed
[2019-07-03 15:27] LABS: ABS Eosinophils 0.1 10^3/ul (0-0.6); ABS Lymphocytes 2.4 10^3/ul (1.0-4.8); ABS Monocytes 0.5 10^3/ul (0-0.8); ABS Neutrophils 7.6 10^3/ul (1.5-7.7); Hematocrit 43 % (35-47); Hemoglobin 14.6 g/dL (12.0-16.0); Lymphocyte % 22.7 %; Mean Corpuscular HGB Conc 34 g/dL (31-36); Mean Corpuscular Hemoglobin 28 pg (27-31); Mean Corpuscular Volume 83 fL (80-97); Mean Platelet Volume 8.2 fL (7.4-10.4); Platelet Count 333 10^3/uL (150-450); Red Blood Count 5.18 10^6 /uL (3.70-4.87); Red Cell Distribution Width 14 % (10-15); White Blood Count 10.7 10^3/uL (3.5-10.8)
[2019-07-03 15:33] LABS: INR 2.26 (0.82-1.09)
[2019-07-03] MEDS ORDERED: NS 0.9% 1000 ML** 1,000 ML IV ONE (15:33)
[2019-07-03 15:47] LABS: Albumin 4.7 g/dL (3.2-5.2); Albumin/Globulin Ratio 1.5 (1-3); BUN/Creatinine Ratio 21.2 (8-20); Calcium 10.7 mg/dL (8.6-10.3); EGFR African American 120.6 (>60); EGFR Non-African American 99.7 (>60); Globulin 3.1 g/dL (2-4); Potassium 3.7 mmol/L (3.5-5.0); Total Bilirubin 0.4 mg/dL (0.2-1.0); Total Protein 7.8 g/dL (6.4-8.9)
[2019-07-03] MEDS ORDERED: Acetaminophen TAB* 325 MG PO ONE (17:14)
[2019-07-03] MEDS ORDERED: Metoclopramide IV* 5 MG/ML 2 ML VIAL IV SLOW PU ONE (17:14)
[2019-07-03 18:00] VITALS: BP 148/65
== END 2019-07-03 17:50 | disposition home or self-care (01) ==
LOC: ED 14:09
DX: J06.9 Acute upper respiratory infection, unspecified (principal); D64.9 Anemia, unspecified; I10 Essential (primary) hypertension; E03.9 Hypothyroidism, unspecified; Z95.2 Presence of prosthetic heart valve; Z90.721 Acquired absence of ovaries, unilateral; Z98.51 Tubal ligation status; Z87.891 Personal history of nicotine dependence; Z79.01 Long term (current) use of anticoagulants; Z79.890 Hormone replacement therapy; Z79.899 Other long term (current) drug therapy; Z88.5 Allergy status to narcotic agent
CPT/HCPCS: 36415; 71046; 80053; 84484; 85025; 85610; 93005; 96361; 96374; 99282; A9270-GY; J2765